=== PATIENT | female | born 1935 | race Caucasian/White ===

== ENCOUNTER 2020-07-27 20:10 | Outpatient (CLI) | payer MEDICARE, OTHER | END 2020-07-27 20:11 | disposition home or self-care (01) | LOC: COV 20:10 | PROVIDERS: ATTEND Family Medicine | DX: Z20.828 Contact with and (suspected) exposure to other viral communicable diseases (principal) ==

== ENCOUNTER 2020-11-10 13:15 | Outpatient (CLI) | payer MEDICARE, OTHER | END 2020-11-10 13:16 | disposition home or self-care (01) | LOC: COV 13:15 | PROVIDERS: ATTEND Family Medicine | DX: R53.83 Other fatigue (principal); R19.7 Diarrhea, unspecified; R09.81 Nasal congestion; Z20.822 Contact with and (suspected) exposure to COVID-19 ==

== ENCOUNTER 2021-04-29 15:46 | Outpatient (CLI) | payer MEDICARE, OTHER | END 2021-04-29 15:47 | disposition critical access hospital (66) | LOC: EMS 15:46 | DX: R10.84 Generalized abdominal pain (principal); R11.2 Nausea with vomiting, unspecified | CPT/HCPCS: A0425; A0427 ==

== ENCOUNTER 2021-04-29 16:04 | Inpatient (IN) | payer MEDICARE, OTHER ==
[2021-04-29] MEDS ORDERED: ONDANSETRON 4 MG/2 ML VIAL IVP STA (16:21)
[2021-04-29] MEDS ORDERED: SODIUM CHLORIDE 0.9% 1,000 ML IV STA (16:21)
[2021-04-29] MEDS ORDERED: KETOROLAC 30 MG/ML VIAL IVP STA (16:21)
[2021-04-29 16:29] LABS: BASOPHILS # (AUTO) 0.1 10^3/uL (0.0-0.1); BASOPHILS % (AUTO) 0.4 %; EOSINOPHILS % (AUTO) 0.2 %; HCT - HEMATOCRIT 51.3 % (37.0-47.0); HGB - HEMOGLOBIN 17.1 g/dL (12.0-16.0); LYMPHOCYTES # (AUTO) 0.8 10^3/uL (1.5-3.5); LYMPHOCYTES % (AUTO) 6.5 %; MEAN CORPUSCULAR HEMOGLOBIN 31.3 pg (27.0-31.0); MEAN CORPUSCULAR HGB CONC 33.3 g/dL (32.0-36.0); MEAN CORPUSCULAR VOLUME 93.8 fL (81.0-99.0); MEAN PLATELET VOLUME 10.2 fL (7.9-10.8); MONOCYTES # (AUTO) 0.6 10^3/uL (0.0-1.0); MONOCYTES % (AUTO) 4.9 %; NEUTROPHILS # (AUTO) 10.8 10^3/uL (1.5-6.6); NEUTROPHILS % (AUTO) 87.8 %; PLT - PLATELET COUNT 217 10^3/uL (130-450); RED BLOOD COUNT 5.47 10^6/uL (4.20-5.40); RED CELL DISTRIBUTION WIDTH 12.9 % (12.0-15.0); WHITE BLOOD COUNT 12.3 x10^3/uL (4.8-10.8)
[2021-04-29] MEDS ORDERED: IOPAMIDOL-300 100 ML VIAL ONE (16:30)
[2021-04-29 16:51] LABS: ALBUMIN 5.2 g/dL (3.2-5.5); ALBUMIN/GLOBULIN RATIO 1.7 (1.0-2.2); BILIRUBIN,TOTAL 1.5 mg/dL (0.2-1.0); CALCIUM 10.6 mg/dL (8.5-10.3); CREATININE 1.2 mg/dL (0.4-1.0); POTASSIUM 4.1 mmol/L (3.5-5.0); TOTAL PROTEIN 8.3 g/dL (6.7-8.2)
[2021-04-29] MEDS ORDERED: HYDROmorphone 1 MG/ML CARPUJECT IVP STA (17:10)
--- NOTE | 2021-04-29 17:47 | ED Physician Documentation ---
PD HPI ABD PAIN - Stated complaint Stated Complaint: N/V - Chief complaint Chief Complaint: Abd Pain - History obtained from History obtained from: Patient, Family - History of Present Illness Timing - onset: Today Timing - duration: Hours Timing - details: Gradual onset, Still present Quality: Cramping, Sharp, Pain Location: Periumbilical Radiation: Lower back Improved by: Laying still Worsened by: Moving, Breathing, Position, Palpation Associated symptoms: Nausea, Vomiting Similar symptoms before: Diagnosis (bowel obstruction.) Recently seen: Not recently seen - Additional information Additional information: 85-year-old female with a history of prior bowel obstruction in the has had a surgical procedure with the initial obstruction and following that she has had 3 other bowel obstructions which were medically managed. This would be her fifth episode. She has had her care in [place] prior to this. She has been living on [facility] for the past year without incident. Review of Systems Constitutional: denies: Fever Eyes: denies: Decreased vision Nose: denies: Congestion Throat: denies: Sore throat Cardiac: denies: Chest pain / pressure, Palpitations Respiratory: denies: Dyspnea, Cough GI: reports: Abdominal Pain, Nausea, Vomiting : denies: Dysuria, Frequency Skin: denies: Rash Musculoskeletal: denies: Neck pain, Back pain, Extremity pain Neurologic: denies: Generalized weakness, Focal weakness, Numbness PD PAST MEDICAL HISTORY - Allergies Allergies/Adverse Reactions: Allergies Allergy/AdvReac Type Severity Reaction Status Date / Time Sulfa (Sulfonamide Allergy Nausea Verified 04/29/21 16:18 Antibiotics) PD ED PE NORMAL - Vitals Vital signs reviewed: Yes (Hypertensive) - General General: Alert and oriented X 3, No acute distress, Well developed/nourished - HEENT HEENT: Atraumatic, PERRL, EOMI - Neck Neck: Supple, no meningeal sign, No bony TTP - Cardiac Cardiac: RRR, No murmur - Respiratory Respiratory: No respiratory distress, Clear bilaterally - Abdomen Abdomen: Other (The abdomen is distended and tympanetic to percussion. 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, No motor deficit, No sensory deficit, Normal speech Eye Opening: Spontaneous Motor: Obeys Commands Verbal: Confused GCS Score: 14 - Psych Psych: Normal mood Results - Vitals Vitals: Vital Signs - 24 hr 04/29/21 16:15 Temperature 35.9 C L Heart Rate 88 Respiratory 16 Rate Blood Pressure 145/91 H O2 Saturation 97 Oxygen O2 Source Room air - Labs Labs: Laboratory Tests 04/29/21 04/29/21 04/29/21 16:23 16:23 17:11 WBC 12.3 H RBC 5.47 H Hgb 17.1 H Hct 51.3 H MCV 93.8 MCH 31.3 H MCHC 33.3 RDW 12.9 Plt Count 217 MPV 10.2 Neut # (Auto) 10.8 H Lymph # (Auto) 0.8 L [place] # (Auto) 0.6 Eos # (Auto) 0.0 Baso # (Auto) 0.1 Absolute Nucleated RBC 0.00 Nucleated RBC % 0.0 Sodium 139 Potassium 4.1 Chloride 97 L Carbon Dioxide 24 Anion Gap 18.0 H BUN 22 H Creatinine 1.2 H Estimated GFR (MDRD) 43 L Glucose 176 H Calcium 10.6 H Total Bilirubin 1.5 H AST 29 ALT 20 Alkaline Phosphatase 74 Total Protein 8.3 H Albumin 5.2 Globulin 3.1 Albumin/Globulin Ratio 1.7 Lipase 29 Nasal Adenovirus (PCR) NOT DETECTED Nasal B. parapertussis DNA (PCR) NOT DETECTED Nasal Coronavir 229E PCR NOT DETECTED Nasal Coronavir HKU1 PCR NOT DETECTED Nasal Coronavir NL63 PCR NOT DETECTED Nasal Coronavir OC43 PCR NOT DETECTED Nasal Enterovir/Rhinovir PCR NOT DETECTED Nasal Influenza B PCR NOT DETECTED Nasal Influenza A PCR NOT DETECTED Nasal Parainfluen 1 PCR NOT DETECTED Nasal Parainfluen 2 PCR NOT DETECTED Nasal Parainfluen 3 PCR NOT DETECTED Nasal Parainfluen 4 PCR NOT DETECTED Nasal RSV (PCR) NOT DETECTED Nasal B.pertussis DNA PCR NOT DETECTED Nasal C.pneumoniae (PCR) NOT DETECTED Mason Human Metapneumo PCR NOT DETECTED Nasal M.pneumoniae (PCR) NOT DETECTED Nasal SARS-CoV-2 (PCR) NOT DETECTED - Rads (name of study) CT ab/pel Radiology: Prelim report reviewed (Impression: 1. Small bowel obstruction. Normal appendix. Thickening of the stomach and small bowel loops, consistent with ischemia versus infection versus inflammation.), EMP read indepedently, See rad report PD MEDICAL DECISION MAKING - ED course Complexity details: reviewed results, re-evaluated patient, considered differential, d/w patient, d/w family ED course: 85-year-old female new to our emergency department has a prior history of bowel obstruction managed conservatively over the past 30 years with the exception of the first bout which was surgically managed. Today she has bowel obstruction again. She has pain and distention acutely and she has little improvement with toradal and has good relief with diluadid. Her stomach is full and an NG is requested. Dr. Meyer is consulted in the case and requests NG be placed and he requests admission to medicine with consultation. She has hx/o afib on [facility]. Departure - Departure Disposition: 66 [facility] DC/[facility] Clinical Impression: Small bowel obstruction
[2021-04-29] MEDS ORDERED: IOPAMIDOL-300 100 ML VIAL IVP ONE (17:58)
--- NOTE | 2021-04-29 18:22 | CT Report ---
PROCEDURE: Abdomen/Pelvis W INDICATIONS: bowel obstruction CONTRAST: IV CONTRAST: Isovue 300 ml: 100 PO CONTRAST: *NO PO CONTRAST TECHNIQUE: After the administration of IV contrast, 5 mm thick sections acquired from the diaphragms to the symp hysis. 5 mm thick coronal and sagittal reformats were acquired. For radiation dose reduction, the f ollowing was used: automated exposure control, adjustment of mA and/or kV according to patient size. COMPARISON: None. FINDINGS: Image quality: Excellent. ABDOMEN: Lung bases: Lung bases are clear. Heart size is enlarged. Solid organs: Liver and spleen are normal in size and enhancement. Gallbladder is within normal ha its Biliary system is non dilated. Pancreas enhances normally. No adrenal nodules. Kidneys demons trate normal size and enhancement, without hydronephrosis. Peritoneum and bowel: A small hiatal hernia is present. Mild distention of the distal esophagus. Mild diffuse gastric distention. Mild diffuse gastric wall thickening. There is moderate distention and m ild of multiple small bowel loops within the abdomen and pelvis. There is a transition zone between d ilated and nondilated small bowel within the right anterior hemipelvis (series 6 images 15 and 16). D istal small bowel loops are nondistended. Appendix is normal. Colon is nondistended. No free fluid or air. Nodes and vessels: No retroperitoneal or mesenteric adenopathy by size criteria. Aorta and inferior vena cava are normal in size. Miscellaneous: No ventral hernias. PELVIS: Genitourinary: Bladder wall thickness is normal. Miscellaneous: No inguinal hernias or adenopathy. Bones: No suspicious bony lesions. No vertebral body compression fractures. IMPRESSION: 1. Small bowel obstruction. 2. Normal appendix. 3. Thickening of the stomach and small bowel loops, consistent with ischemia versus infection versus inflammation. Reviewed by: Catalino Sanchez MD on 04/29/2021 6:21 PM PDT Approved by: Catalino Sanchez MD on 04/29/2021 6:21 PM PDT Station ID: [id number]
[2021-04-29 18:32] LABS: B. PARAPERTUSSIS- RESP PCR PAN NOT DETECTED; B. PERTUSSIS- RESP PCR PANEL NOT DETECTED; C. PNEUMONIAE- RESP PCR PANEL NOT DETECTED; CORONAVIRUS 229E-RESP PCR NOT DETECTED; CORONAVIRUS HKU1-RESP PCR NOT DETECTED; CORONAVIRUS NL63-RESP PCR NOT DETECTED; CORONAVIRUS OC43-RESP PCR NOT DETECTED; HUMAN METAPNEUMOVIRUS NOT DETECTED; INFLUENZA A- RESP PCR PANEL NOT DETECTED; INFLUENZA B - RESP PCR PANEL NOT DETECTED; M. PNEUMONIAE- RESP PCR PANEL NOT DETECTED; PARAINFLUENZA VIRUS 1 NOT DETECTED; PARAINFLUENZA VIRUS 2 NOT DETECTED; PARAINFLUENZA VIRUS 3 NOT DETECTED; PARAINFLUENZA VIRUS 4 NOT DETECTED; RHINOVIRUS/ENTEROVIRUS NOT DETECTED; RSV- RESP PCR PANEL NOT DETECTED; SARS-CoV-2 -RESP PCR PANEL NOT DETECTED
--- NOTE | 2021-04-29 19:13 | CONSULTATION NOTE ---
Referring Provider Name of Referring Provider:: Mehul Consult Date: 04/29/21 Chief Complaint - Chief Complaint Chief Complaint: abdominal distention History of Present Illness - History Obtained From History obtained from: Patient's daughter, Dr Carver - History of Present Illness HPI Comment/Other: 85 yo female with Alzheimer's disease, hx of SBO in past with one previous abdominal exploration. Meds/Allgy - Allergies Allergies/Adverse Reactions: Allergies Allergy/AdvReac Type Severity Reaction Status Date / Time Sulfa (Sulfonamide Allergy Nausea Verified 04/29/21 16:18 Antibiotics) Exam - Vital Signs Vital Signs: Vital Signs x48h Temp Pulse Resp BP Pulse Ox 04/29/21 16:15 35.9 C L 88 16 145/91 H 97 - Physical Exam General Appearance: positive: No acute distress Eyes Bilateral: positive: Normal inspection ENT: positive: ENT inspection nml Neck: positive: Nml inspection Respiratory: positive: No respiratory distress Cardiovascular: positive: Irregularly irregular Abdomen: positive: Other (Distended but nontender, no guarding or rebound. Midline surgical scar.) Conclusion and Plan - Lab Results Laboratory Results 04/29/21 17:11: Nasal Adenovirus (PCR) NOT DETECTED, Nasal B. parapertussis DNA (PCR) NOT DETECTED, Nasal Coronavir 229E PCR NOT DETECTED, Nasal Coronavir HKU1 PCR NOT DETECTED, Nasal Coronavir NL63 PCR NOT DETECTED, Nasal Coronavir OC43 PCR NOT DETECTED, Nasal Enterovir/Rhinovir PCR NOT DETECTED, Nasal Influenza B PCR NOT DETECTED, Nasal Influenza A PCR NOT DETECTED, Nasal Parainfluen 1 PCR NOT DETECTED, Nasal Parainfluen 2 PCR NOT DETECTED, Nasal Parainfluen 3 PCR NOT DETECTED, Nasal Parainfluen 4 PCR NOT DETECTED, Nasal RSV (PCR) NOT DETECTED, Nasal B.pertussis DNA PCR NOT DETECTED, Nasal C.pneumoniae (PCR) NOT DETECTED, Mason Human Metapneumo PCR NOT DETECTED, Nasal M.pneumoniae (PCR) NOT DETECTED, Nasal SARS-CoV-2 (PCR) NOT DETECTED 04/29/21 16:23: Sodium 139, Potassium 4.1, Chloride 97 L, Carbon Dioxide 24, Anion Gap 18.0 H, BUN 22 H, Creatinine 1.2 H, Estimated GFR (MDRD) 43 L, Glucose 176 H, Calcium 10.6 H, Total Bilirubin 1.5 H, AST 29, ALT 20, Alkaline Phosphatase 74, Total Protein 8.3 H, Albumin 5.2, Globulin 3.1, Albumin/Globulin Ratio 1.7, Lipase 29 04/29/21 16:23: WBC 12.3 H, RBC 5.47 H, Hgb 17.1 H, Hct 51.3 H, MCV 93.8, MCH 31.3 H, MCHC 33.3, RDW 12.9, Plt Count 217, MPV 10.2, Neut # (Auto) 10.8 H, Lymph # (Auto) 0.8 L, [place] # (Auto) 0.6, Eos # (Auto) 0.0, Baso # (Auto) 0.1, Absolute Nucleated RBC 0.00, Nucleated RBC % 0.0 - Diagnostic Imaging Results Diagnostic Imaging Results: positive: Final report reviewed Diagnostic Imaging Results Comments: Consistent with small bowel obstruction - Diagnosis Diagnosis: Small bowel obstruction, s/p previous surgery for obstruction and several episodes of partial SBO managed successfully nonoperatively. Alzheimer's disease. A fib on Eliquis. Anxiety, depression - Plan Plan: NG to suction, NPO, IV fluids, abdominal films in AM. GG SBFT tomorrow if not resolved. Hold Eliquis.
[2021-04-29] MEDS ORDERED: LIDOCAINE JELLY 2% 6 ML JEL.PF.APP TOP STA (19:26)
[2021-04-29 20:41] LABS: INR 1.3 (0.8-1.2); PT - PROTHROMBIN TIME 14.5 secs (9.9-12.6)
[2021-04-29] MEDS: PROCHLORPERAZINE 10 MG/2 ML VIAL IVP PRN (21:18)
[2021-04-29] MEDS: SODIUM CHLORIDE 0.9% 1,000 ML IV SCH (21:18)
[2021-04-29] MEDS ORDERED: ENOXAPARIN 60 MG/0.6 ML SYRINGE SUBQ ONE (22:00)
--- NOTE | 2021-04-29 22:10 | HISTORY & PHYSICAL EXAMINATION ---
History and Physical - History and Physical Chief complaint: Nausea, vomiting and abdominal pain. Source of history: Patient has dementia and cannot provide meaningful history, her daughter at the bedside was interviewed and provided history. History of present illness: The patient is an 85-year-old white female with past medical history of Alzheimer's dementia and atrial fibrillation. She resides at [facility] assisted living [facility]. She has history of small bowel obstructions, 4 episodes in the past, first time she required surgery, subsequently, the other 3 times, she was treated conservatively. Other than abdominal surgery for small bowel obstruction, she does not have past surgical history except for remote skin grafts. She was in her usual state of health, ate breakfast as usual on the morning of April 29. Around noon time, however she developed several episodes of nausea, vomiting and lower quadrant diffuse abdominal discomfort. Other than this she could not provide history, notably she has advanced dementia and even basic symptoms are hard for her to remember, most of the history provided by her daughter. Daughter also reports that the patient has advancing dementia and sometimes gets agitated, however Seroquel helped in the past. Atrial fibrillation is controlled on digoxin and patient is therapeutically anticoagulated on Eliquis. Past medical history: History of small bowel obstructions requiring surgery for the first time, subsequently 3 more episodes treated conservatively Alzheimer's dementia Anxiety/depression Nonrheumatic mitral regurgitation/mitral valve prolapse Osteoporosis Chronic kidney disease stage III Atrial fibrillation on therapeutic Eliquis anticoagulation Allergies Sulfa (Sulfonamide Antibiotics) Allergy (Verified 04/29/21 16:18) Nausea Outpatient medications: Medication reconciliation is not available online, per assisted living facility documentation patient was on digoxin, Eliquis, loratadine, quetiapine, vitamin D, Tylenol Family history: Patient cannot recall chronic medical conditions in first-degree relatives. Social history and functional status: Patient lives at an assisted living facility, she ambulates with a walker. She sometimes gets agitated but responds well to Seroquel. She has advancing dementia. She is not on any modified diet. Requires assistance, however could still perform basic ADLs such as dressing and feeding. Advanced directive/CODE STATUS: CODE STATUS was discussed with the patient's daughter at the bedside; POLST form was reviewed which showed full CODE STATUS. Patient has advanced dementia and she is unable to discuss complex issues. Her daughter stated that for now her CODE STATUS should remain full code, however she mentioned that the decision might be changed. Review of symptoms: 12 point review done, pertinent positives and negatives listed above at history present illness, there was no additional positive. Vital Signs - 24 hr 04/29/21 04/29/21 04/29/21 16:15 20:31 20:40 Temperature 35.9 C L 36.1 C L 36.8 C Heart Rate 88 90 Heart Rate [ 14 L Radial] Respiratory 16 16 19 Rate Blood Pressure 145/91 H 135/69 H Blood Pressure 126/79 [Right Brachial artery] O2 Saturation 97 100 96 Oxygen O2 Source Room air Physical exam: General: The patient is a well-developed elderly female, appears forgetful but oriented to self and situation. Not in distress. Respiratory: No increased work of breathing, clear to auscultation bilaterally without wheezes or crackles. CVS: S1, S2, irregular without pathologic murmur. Abdomen: NG tube in place, draining thick yellowish fluid about 300 mL output; distended abdomen, diffusely tender in the lower quadrants, hypoactive bowel tones. Neurologic: Alert, appears forgetful, cannot provide meaningful history and looks at her daughter for even simple straightforward answers; no focal lateralizing sign. Psych: Cooperative. Lymph: No pitting pedal edema. Skin: Mild pallor. Musculoskeltal: Atraumatic. Laboratory Results - last 24 hr 04/29/21 04/29/21 04/29/21 16:23 16:23 17:11 WBC 12.3 H RBC 5.47 H Hgb 17.1 H Hct 51.3 H MCV 93.8 MCH 31.3 H MCHC 33.3 RDW 12.9 Plt Count 217 MPV 10.2 Neut # (Auto) 10.8 H Lymph # (Auto) 0.8 L [place] # (Auto) 0.6 Eos # (Auto) 0.0 Baso # (Auto) 0.1 Absolute Nucleated RBC 0.00 Nucleated RBC % 0.0 PT INR Sodium 139 Potassium 4.1 Chloride 97 L Carbon Dioxide 24 Anion Gap 18.0 H BUN 22 H Creatinine 1.2 H Estimated GFR (MDRD) 43 L Glucose 176 H Lactic Acid Calcium 10.6 H Total Bilirubin 1.5 H AST 29 ALT 20 Alkaline Phosphatase 74 Total Protein 8.3 H Albumin 5.2 Globulin 3.1 Albumin/Globulin Ratio 1.7 Lipase 29 Nasal Adenovirus (PCR) NOT DETECTED Nasal B. parapertussis DNA (PCR) NOT DETECTED Nasal Coronavir 229E PCR NOT DETECTED Nasal Coronavir HKU1 PCR NOT DETECTED Nasal Coronavir NL63 PCR NOT DETECTED Nasal Coronavir OC43 PCR NOT DETECTED Nasal Enterovir/Rhinovir PCR NOT DETECTED Nasal Influenza B PCR NOT DETECTED Nasal Influenza A PCR NOT DETECTED Nasal Parainfluen 1 PCR NOT DETECTED Nasal Parainfluen 2 PCR NOT DETECTED Nasal Parainfluen 3 PCR NOT DETECTED Nasal Parainfluen 4 PCR NOT DETECTED Nasal RSV (PCR) NOT DETECTED Nasal B.pertussis DNA PCR NOT DETECTED Nasal C.pneumoniae (PCR) NOT DETECTED Mason Human Metapneumo PCR NOT DETECTED Nasal M.pneumoniae (PCR) NOT DETECTED Nasal SARS-CoV-2 (PCR) NOT DETECTED 04/29/21 04/29/21 20:30 20:30 WBC RBC Hgb Hct MCV MCH MCHC RDW Plt Count MPV Neut # (Auto) Lymph # (Auto) [place] # (Auto) Eos # (Auto) Baso # (Auto) Absolute Nucleated RBC Nucleated RBC % PT 14.5 H INR 1.3 H Sodium Potassium Chloride Carbon Dioxide Anion Gap BUN Creatinine Estimated GFR (MDRD) Glucose Lactic Acid 1.5 Calcium Total Bilirubin AST ALT Alkaline Phosphatase Total Protein Albumin Globulin Albumin/Globulin Ratio Lipase Nasal Adenovirus (PCR) Nasal B. parapertussis DNA (PCR) Nasal Coronavir 229E PCR Nasal Coronavir HKU1 PCR Nasal Coronavir NL63 PCR Nasal Coronavir OC43 PCR Nasal Enterovir/Rhinovir PCR Nasal Influenza B PCR Nasal Influenza A PCR Nasal Parainfluen 1 PCR Nasal Parainfluen 2 PCR Nasal Parainfluen 3 PCR Nasal Parainfluen 4 PCR Nasal RSV (PCR) Nasal B.pertussis DNA PCR Nasal C.pneumoniae (PCR) Mason Human Metapneumo PCR Nasal M.pneumoniae (PCR) Nasal SARS-CoV-2 (PCR) Imaging reviewed per electronic medical record including CT scan of the abdomen; it showed small bowel obstruction, thickening of stomach and small bowel loops consistent with ischemia versus inflammation versus infection. Assessment and plan: Active issues/diagnoses Small bowel obstruction Stomach and bowel loop thickening shown on CT scan is consistent with inflammation, based on the clinical scenario less likely infection or ischemia Chronic A. fib Therapeutic anticoagulation Alzheimer dementia with history of agitation and sundowning Chronic renal insufficiency/creatinine at baseline Plan and orders: Admitted as inpatient with surgery consultation, was already seen by the on-call surgeon Bowel rest/NG tube Check lactic acid IV hydration Proton Pump Inhibitor IV digoxin to control chronic A. fib/check digoxin level As the patient cannot take oral intake will receive 1 loading dose of Lovenox to maintain therapeutic anticoagulation until the morning, further orders will be based on surgical plan and clinical course Regarding agitation and history of sundowning with Alzheimer's disease, will order as needed Ativan and try to use nonpharmacological measures/dementia awarness Medication reconciliation DVT prophylaxis with SCDs, plus therapeutic anticoagulation is maintained with 1 dose of Lovenox until further order Full code per POLST form Attestation: I certify that the patient meets inpatient criteria based on the admission diagnosis, and the above assessment findings and plan; she is expected to be hospitalized for more than 48 hours however to discharge or transfer to other facility within less than 96 hours.
[2021-04-29] MEDS: SODIUM CHLORIDE FLUSH 0.9% 10 ML SYRINGE IVP SCH (23:32)
[2021-04-30] MEDS ORDERED: METOPROLOL 5 MG/5 ML VIAL IVP SCH
[2021-04-30] MEDS ORDERED: PHENOL THROAT SPRAY 177 ML MM PRN (02:01)
[2021-04-30] MEDS: SODIUM CHLORIDE 0.9% 1,000 ML IV SCH ×3 (02:41→20:38)
[2021-04-30] MEDS: BENZOCAINE/MENTHOL LOZENGE MM PRN ×2 (02:44→14:21)
[2021-04-30] MEDS ORDERED: METOPROLOL 5 MG/5 ML VIAL IVP PRN (04:25)
[2021-04-30 05:42] LABS: BASOPHILS % (AUTO) 0.7 %; EOSINOPHILS % (AUTO) 0.7 %; HCT - HEMATOCRIT 48.2 % (37.0-47.0); HGB - HEMOGLOBIN 15.5 g/dL (12.0-16.0); LYMPHOCYTES % (AUTO) 4.6 %; MEAN CORPUSCULAR HEMOGLOBIN 30.9 pg (27.0-31.0); MEAN CORPUSCULAR HGB CONC 32.2 g/dL (32.0-36.0); MEAN PLATELET VOLUME 10.7 fL (7.9-10.8); MONOCYTES % (AUTO) 9.4 %; NEUTROPHILS % (AUTO) 84.3 %; PLT - PLATELET COUNT 201 10^3/uL (130-450); RED BLOOD COUNT 5.02 10^6/uL (4.20-5.40); RED CELL DISTRIBUTION WIDTH 13.2 % (12.0-15.0); WHITE BLOOD COUNT 7.2 x10^3/uL (4.8-10.8)
[2021-04-30 05:49] LABS: CALCIUM 8.8 mg/dL (8.5-10.3); CREATININE 1.1 mg/dL (0.4-1.0); POTASSIUM 4.2 mmol/L (3.5-5.0)
[2021-04-30 06:00] LABS: ABNORMAL LYMPHS % (MANUAL) 0 %
[2021-04-30 06:13] LABS: BAND NEUTROPHILS % (MANUAL) 1 %; LYMPHOCYTES # (MANUAL) 0.6 10^3/uL (1.5-3.5); LYMPHOCYTES % (MANUAL) 8 %; MONOCYTES # (MANUAL) 0.7 10^3/uL (0.0-1.0); NEUTROPHILS # (MANUAL) 5.9 10^3/uL (1.5-6.6)
[2021-04-30 06:14] LABS: DIFFERENTIAL COMMENT MANUAL DIFFERENTIAL; PLATELET ESTIMATE, MANUAL NORMAL (130-450,000) (NORMAL); PLATELET MORPHOLOGY NORMAL APPEARANCE (NORMAL); RBC MORPHOLOGY (MULTIPLE) NORMAL APPEARANCE (NORMAL); WBC MORPHOLOGY (MULTIPLE) NORMAL APPEARANCE (NORMAL)
[2021-04-30] MEDS: PANTOPRAZOLE 40 MG VIAL IV SCH (09:06)
[2021-04-30] MEDS: SODIUM CHLORIDE FLUSH 0.9% 10 ML SYRINGE IVP SCH ×2 (09:06→16:28)
[2021-04-30] MEDS: DIGOXIN 500 MCG/2 ML AMP IVP SCH (09:06)
--- NOTE | 2021-04-30 09:38 | PROVIDER PROGRESS NOTE ---
Subjective - General Admit Date: 04/29/21 - Review of Systems General: positive: Other (NG in place with good output) Gastrointestinal: negative: Nausea, Vomiting, Abdominal pain Objective - Patient Data Reviewed Vital Signs: Yes Vital Signs: Vital Signs x48h Temp Pulse Pulse Resp BP Pulse Ox 04/30/21 08:52 36.6 C 96 16 111/63 97 04/30/21 04:51 36.5 C 100 17 114/55 L 95 Weight: Weight 04/28/21 04/29/21 04/30/21 23:59 23:59 23:59 Weight (kg) 65 kg Intake & Output: Intake and Output Totals x24h 04/28/21 04/29/21 04/30/21 23:59 23:59 23:59 Intake Total 1030 488.609 Output Total 300 225 Balance 730 263.609 - Lab Results Lab Results: 04/30/21 05:30 04/30/21 05:30 Other Lab Results: Lab Results x24hrs 04/30/21 04/30/21 04/29/21 Range/Units 05:30 05:30 20:30 WBC 7.2 (4.8-10.8) x10^3/uL RBC 5.02 (4.20-5.40) 10^6/uL Hgb 15.5 (12.0-16.0) g/dL Hct 48.2 H (37.0-47.0) % MCV 96.0 (81.0-99.0) fL MCH 30.9 (27.0-31.0) pg MCHC 32.2 (32.0-36.0) g/dL RDW 13.2 (12.0-15.0) % Plt Count 201 (130-450) 10^3/uL MPV 10.7 (7.9-10.8) fL Neut # (Auto) Not Reportable (1.5-6.6) 10^3/uL Lymph # (Auto) Not Reportable (1.5-3.5) 10^3/uL [place] # (Auto) Not Reportable (0.0-1.0) 10^3/uL Eos # (Auto) Not Reportable (0.0-0.7) 10^3/uL Baso # (Auto) Not Reportable (0.0-0.1) 10^3/uL Absolute Nucleated RBC Not Reportable x10^3/uL Total Counted 100 Band Neuts % (Manual) 1 (0 - 10) % Abnorm Lymph % (Manual) 0 % Nucleated RBC % Not Reportable /100WBC Neutrophils # (Manual) 5.9 (1.5-6.6) 10^3/uL Lymphocytes # (Manual) 0.6 L (1.5-3.5) 10^3/uL Monocytes # (Manual) 0.7 (0.0-1.0) 10^3/uL Eosinophils # (Manual) 0.0 (0-0.7) 10^3/uL Basophils # (Manual) 0.0 (0-0.1) 10^3/uL Differential Comment MANUAL DIFFERENTIAL WBC Morphology NORMAL APPEARANCE (NORMAL) Platelet Estimate NORMAL (130-450,000) (NORMAL) Platelet Morphology NORMAL APPEARANCE (NORMAL) RBC Morph Micro Appear NORMAL APPEARANCE (NORMAL) PT 14.5 H (9.9-12.6) secs INR 1.3 H (0.8-1.2) Sodium 138 (135-145) mmol/L Potassium 4.2 (3.5-5.0) mmol/L Chloride 100 L (101-111) mmol/L Carbon Dioxide 25 (21-32) mmol/L Anion Gap 13.0 (6-13) BUN 28 H (6-20) mg/dL Creatinine 1.1 H (0.4-1.0) mg/dL Estimated GFR (MDRD) 47 L (>89) Glucose 158 H (70-100) mg/dL Lactic Acid (0.5-2.2) mmol/L Calcium 8.8 (8.5-10.3) mg/dL Total Bilirubin (0.2-1.0) mg/dL AST (10-42) IU/L ALT (10-60) IU/L Alkaline Phosphatase (42-121) IU/L Total Protein (6.7-8.2) g/dL Albumin (3.2-5.5) g/dL Globulin (2.1-4.2) g/dL Albumin/Globulin Ratio (1.0-2.2) Lipase (22-51) U/L Nasal Adenovirus (PCR) Nasal B. parapertussis DNA (PCR) Nasal Coronavir 229E PCR Nasal Coronavir HKU1 PCR Nasal Coronavir NL63 PCR Nasal Coronavir OC43 PCR Nasal Enterovir/Rhinovir PCR Nasal Influenza B PCR Nasal Influenza A PCR Nasal Parainfluen 1 PCR Nasal Parainfluen 2 PCR Nasal Parainfluen 3 PCR Nasal Parainfluen 4 PCR Nasal RSV (PCR) Nasal B.pertussis DNA PCR Nasal C.pneumoniae (PCR) [place] Human Metapneumo PCR Nasal M.pneumoniae (PCR) Nasal SARS-CoV-2 (PCR) 04/29/21 04/29/21 04/29/21 Range/Units 20:30 17:11 16:23 WBC (4.8-10.8) x10^3/uL RBC (4.20-5.40) 10^6/uL Hgb (12.0-16.0) g/dL Hct (37.0-47.0) % MCV (81.0-99.0) fL MCH (27.0-31.0) pg MCHC (32.0-36.0) g/dL RDW (12.0-15.0) % Plt Count (130-450) 10^3/uL MPV (7.9-10.8) fL Neut # (Auto) (1.5-6.6) 10^3/uL Lymph # (Auto) (1.5-3.5) 10^3/uL [place] # (Auto) (0.0-1.0) 10^3/uL Eos # (Auto) (0.0-0.7) 10^3/uL Baso # (Auto) (0.0-0.1) 10^3/uL Absolute Nucleated RBC x10^3/uL Total Counted Band Neuts % (Manual) (0 - 10) % Abnorm Lymph % (Manual) % Nucleated RBC % /100WBC Neutrophils # (Manual) (1.5-6.6) 10^3/uL Lymphocytes # (Manual) (1.5-3.5) 10^3/uL Monocytes # (Manual) (0.0-1.0) 10^3/uL Eosinophils # (Manual) (0-0.7) 10^3/uL Basophils # (Manual) (0-0.1) 10^3/uL Differential Comment WBC Morphology (NORMAL) Platelet Estimate (NORMAL) Platelet Morphology (NORMAL) RBC Morph Micro Appear (NORMAL) PT (9.9-12.6) secs INR (0.8-1.2) Sodium 139 (135-145) mmol/L Potassium 4.1 (3.5-5.0) mmol/L Chloride 97 L (101-111) mmol/L Carbon Dioxide 24 (21-32) mmol/L Anion Gap 18.0 H (6-13) BUN 22 H (6-20) mg/dL Creatinine 1.2 H (0.4-1.0) mg/dL Estimated GFR (MDRD) 43 L (>89) Glucose 176 H (70-100) mg/dL Lactic Acid 1.5 (0.5-2.2) mmol/L Calcium 10.6 H (8.5-10.3) mg/dL Total Bilirubin 1.5 H (0.2-1.0) mg/dL AST 29 (10-42) IU/L ALT 20 (10-60) IU/L Alkaline Phosphatase 74 (42-121) IU/L Total Protein 8.3 H (6.7-8.2) g/dL Albumin 5.2 (3.2-5.5) g/dL Globulin 3.1 (2.1-4.2) g/dL Albumin/Globulin Ratio 1.7 (1.0-2.2) Lipase 29 (22-51) U/L Nasal Adenovirus (PCR) NOT DETECTED Nasal B. parapertussis DNA (PCR) NOT DETECTED Nasal Coronavir 229E PCR NOT DETECTED Nasal Coronavir HKU1 PCR NOT DETECTED Nasal Coronavir NL63 PCR NOT DETECTED Nasal Coronavir OC43 PCR NOT DETECTED Nasal Enterovir/Rhinovir PCR NOT DETECTED Nasal Influenza B PCR NOT DETECTED Nasal Influenza A PCR NOT DETECTED Nasal Parainfluen 1 PCR NOT DETECTED Nasal Parainfluen 2 PCR NOT DETECTED Nasal Parainfluen 3 PCR NOT DETECTED Nasal Parainfluen 4 PCR NOT DETECTED Nasal RSV (PCR) NOT DETECTED Nasal B.pertussis DNA PCR NOT DETECTED Nasal C.pneumoniae (PCR) NOT DETECTED [place] Human Metapneumo PCR NOT DETECTED Nasal M.pneumoniae (PCR) NOT DETECTED Nasal SARS-CoV-2 (PCR) NOT DETECTED 04/29/21 Range/Units 16:23 WBC 12.3 H (4.8-10.8) x10^3/uL RBC 5.47 H (4.20-5.40) 10^6/uL Hgb 17.1 H (12.0-16.0) g/dL Hct 51.3 H (37.0-47.0) % MCV 93.8 (81.0-99.0) fL MCH 31.3 H (27.0-31.0) pg MCHC 33.3 (32.0-36.0) g/dL RDW 12.9 (12.0-15.0) % Plt Count 217 (130-450) 10^3/uL MPV 10.2 (7.9-10.8) fL Neut # (Auto) 10.8 H (1.5-6.6) 10^3/uL Lymph # (Auto) 0.8 L (1.5-3.5) 10^3/uL [place] # (Auto) 0.6 (0.0-1.0) 10^3/uL Eos # (Auto) 0.0 (0.0-0.7) 10^3/uL Baso # (Auto) 0.1 (0.0-0.1) 10^3/uL Absolute Nucleated RBC 0.00 x10^3/uL Total Counted Band Neuts % (Manual) (0 - 10) % Abnorm Lymph % (Manual) % Nucleated RBC % 0.0 /100WBC Neutrophils # (Manual) (1.5-6.6) 10^3/uL Lymphocytes # (Manual) (1.5-3.5) 10^3/uL Monocytes # (Manual) (0.0-1.0) 10^3/uL Eosinophils # (Manual) (0-0.7) 10^3/uL Basophils # (Manual) (0-0.1) 10^3/uL Differential Comment WBC Morphology (NORMAL) Platelet Estimate (NORMAL) Platelet Morphology (NORMAL) RBC Morph Micro Appear (NORMAL) PT (9.9-12.6) secs INR (0.8-1.2) Sodium (135-145) mmol/L Potassium (3.5-5.0) mmol/L Chloride (101-111) mmol/L Carbon Dioxide (21-32) mmol/L Anion Gap (6-13) BUN (6-20) mg/dL Creatinine (0.4-1.0) mg/dL Estimated GFR (MDRD) (>89) Glucose (70-100) mg/dL Lactic Acid (0.5-2.2) mmol/L Calcium (8.5-10.3) mg/dL Total Bilirubin (0.2-1.0) mg/dL AST (10-42) IU/L ALT (10-60) IU/L Alkaline Phosphatase (42-121) IU/L Total Protein (6.7-8.2) g/dL Albumin (3.2-5.5) g/dL Globulin (2.1-4.2) g/dL Albumin/Globulin Ratio (1.0-2.2) Lipase (22-51) U/L Nasal Adenovirus (PCR) Nasal B. parapertussis DNA (PCR) Nasal Coronavir 229E PCR Nasal Coronavir HKU1 PCR Nasal Coronavir NL63 PCR Nasal Coronavir OC43 PCR Nasal Enterovir/Rhinovir PCR Nasal Influenza B PCR Nasal Influenza A PCR Nasal Parainfluen 1 PCR Nasal Parainfluen 2 PCR Nasal Parainfluen 3 PCR Nasal Parainfluen 4 PCR Nasal RSV (PCR) Nasal B.pertussis DNA PCR Nasal C.pneumoniae (PCR) [place] Human Metapneumo PCR Nasal M.pneumoniae (PCR) Nasal SARS-CoV-2 (PCR) - Imaging Results Radiology Imaging: positive: Other (Plain abdominal films ordered and pending) - Current Medications Current Medications: Current Medications Generic Name Dose Route Start Last Admin Trade Name Freq PRN Reason Stop Dose Admin Digoxin 125 mcg 04/30/21 09:00 04/30/21 09:06 Digoxin 500 Mcg/2 Ml Amp IVP 125 mcg DAILY GIGI Administration Sodium Chloride 1,000 mls @ 83.333 mls/hr 04/29/21 21:00 04/30/21 02:41 Normal Saline 0.9% IV 83.333 mls/hr .Q12H GIGI Administration Pantoprazole Sodium 40 mg 04/30/21 09:00 04/30/21 09:06 Pantoprazole 40 Mg Vial IV 40 mg DAILY GIGI Administration Phenol/Menthol 2 sprays 04/30/21 02:01 04/30/21 02:46 Phenol Throat [place] 177 Ml MM 2 sprays Q2HR PRN Administration Throat Pain Prochlorperazine Edisylate 10 mg 04/29/21 20:08 04/29/21 21:18 Prochlorperazine 10 Mg/2 Ml Vial IVP 10 mg Q6HR PRN Administration Nausea / Vomiting Sodium Chloride 10 ml 04/30/21 01:00 04/30/21 09:06 Sodium Chloride Flush 0.9% 10 Ml Syringe IVP 10 ml 0100,0900,1700 GIGI Administration Throat Lozenges 1 lozenge 04/29/21 22:10 04/30/21 02:44 Benzocaine/Menthol Lozenge MM 1 lozenge Q2HR PRN Administration Mouth Sore Pain - Physical Exam Abdomen: positive: Non-tender, No distention (Much improved from yesterday) Impression/Plan - Problem List Problem List: SBO- improved after overnight NG suction Abdominal films this am pending Plan: Continue NG/IVF. SBFT
[2021-04-30] MEDS: PROCHLORPERAZINE 10 MG/2 ML VIAL IVP PRN (10:08)
[2021-04-30] MEDS ORDERED: ENOXAPARIN 60 MG/0.6 ML SYRINGE SUBQ ONE (10:39)
--- NOTE | 2021-04-30 12:26 | XRAY Report ---
PROCEDURE: Abdomen 2 View X-Ray INDICATIONS: evaluate SBO TECHNIQUE: 2 views of the abdomen were acquired. COMPARISON: CT abdomen pelvis 04/29/2021. FINDINGS: Surgical changes and devices: None. Bowel: No pneumoperitoneum. Persistent dilated loops of small bowel. Small air-fluid levels. Soft tissues: No masses; visualized solid organ contours appear normal in size. No suspicious abdom inal calcifications. Streaky opacity at the left lung base. Prominent heart size. Bones: No suspicious bony abnormalities. IMPRESSION: Persistent small bowel obstruction. Reviewed by: John Foley MD on 04/30/2021 11:25 AM [place] Approved by: John Foley MD on 04/30/2021 11:25 AM [facility] Station ID: [id number]
--- NOTE | 2021-04-30 13:36 | XRAY Report ---
PROCEDURE: Small Bowel Follow Through INDICATIONS: EVALUATE SBO COMPARISON: Abdominal radiographs earlier today. CT abdomen and pelvis 04/29/2020. CONTRAST: CONTRAST: GASTROGRAPHIN FINDINGS: There is enteric tube in the stomach. There is now contrast within the stomach. There is persistent d ilated loops of small bowel. These loops of small bowel filled with oral contrast on the 2 hour gastr ic challenge. Question of mild opacity at the left lung base. IMPRESSION: Persistent small bowel obstruction. Question of mild airspace opacity at the left lung base. Reviewed by: John Foley MD on 04/30/2021 12:34 PM [facility] Approved by: John Foley MD on 04/30/2021 12:34 PM [facility] Station ID: [id number]
[2021-04-30] MEDS: ONDANSETRON 4 MG/2 ML VIAL IVP PRN (14:21)
[2021-04-30] MEDS ORDERED: fentaNYL 100 MCG/2 ML VIAL ONE (17:02)
[2021-04-30] MEDS ORDERED: PROPOFOL 200 MG/20 ML VIAL IVP ONE (17:02)
[2021-04-30] MEDS ORDERED: ROCURONIUM 50 MG/5 ML VIAL ONE (17:02)
[2021-04-30] MEDS ORDERED: LIDOCAINE-MPF 2% 5 ML VIAL ONE (17:02)
[2021-04-30] MEDS ORDERED: PHENYLEPHRINE 10 MG/ML VIAL ONE (17:07)
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
[2021-04-30] MEDS ORDERED: ATROPINE ABBOJECT 1 MG/10 ML SYRINGE IVP PRN (17:17)
[2021-04-30] MEDS ORDERED: HYDROmorphone 0.5 MG/0.5 ML SYRINGE IVP PRN (17:17)
[2021-04-30] MEDS ORDERED: NALOXONE 0.4 MG/ML VIAL IVP PRN (17:17)
[2021-04-30] MEDS ORDERED: MORPHINE 2 MG/ML CARPUJECT IVP PRN (17:17)
[2021-04-30] MEDS ORDERED: ONDANSETRON 4 MG/2 ML VIAL IVP PRN (17:17)
[2021-04-30] MEDS ORDERED: fentaNYL 100 MCG/2 ML VIAL IVP PRN (17:17)
[2021-04-30] MEDS ORDERED: DIATRIZOATE MEGLU/DIATRIZO SOD 30 ML BOTTLE PO ONE (17:35)
[2021-04-30] MEDS ORDERED: ceFAZolin 1 GM VIAL ONE (17:42)
[2021-04-30] MEDS ORDERED: metroNIDAZOLE 500 MG/100 ML 500 MG/100 ML BAG ONE (17:49)
[2021-04-30] MEDS ORDERED: BUPIVACAINE 0.25% PF 30 ML VIAL SUBQ ONE ×2 (17:51)
[2021-04-30] MEDS ORDERED: BUPIVACAINE 0.25% PF 30 ML VIAL ONE (17:53)
[2021-04-30] MEDS ORDERED: LACTATED RINGERS 1,000 ML IV SCH (18:00)
--- NOTE | 2021-04-30 18:01 | PROVIDER PROGRESS NOTE ---
Assessment/Plan - Problem List (1) Small bowel obstruction Assessment/Plan: Continue with bowel rest, NG tube for decompression. General surgery consultation and Dr. Meyer has ordered a Gastrografin chall enge and x-ray imaging. She vomited a copious amount of stomach contents following ingestion of the Gastrografin. Dr. Meyer feels that she is not progressing and is planning to take her to the OR for probable lysis of adhesions today. Continue with IV fluids while she is n.p.o. Continue with pain meds and antiemetics as needed. We will change her essential medications to IV form (2) Atrial fibrillation Assessment/Plan: Her heart rate is controlled on her current medications. She was on proper doses of Eliquis and therapeutically anticoagulated. The Eliquis has been discontinued, changed to Lovenox which could then be stopped if she needs to go to surgery for the small bowel obstruction. Continue with heart rate meds in IV form (3) CKD (chronic kidney disease) Assessment/Plan: She is at her baseline creatinine. Avoid nephrotoxins. Continue with gentle IV hydration while she has n.p.o. status because of the SBO. Follow BMP daily (4) Dementia with behavioral disturbance Assessment/Plan: She has had agitation and sundowning in the past. Knowing this history, will begin treatment if she has agitation or sundowning - Current Meds Current Meds: Current Medications Generic Name Dose Route Start Last Admin Trade Name Freq PRN Reason Stop Dose Admin Digoxin 125 mcg 04/30/21 09:00 04/30/21 09:06 Digoxin 500 Mcg/2 Ml Amp IVP 125 mcg DAILY GIGI Administration Sodium Chloride 1,000 mls @ 83.333 mls/hr 04/29/21 21:00 04/30/21 14:44 Normal Saline 0.9% IV 83.3 mls/hr .Q12H GIGI Administration Ondansetron HCl 4 mg 04/29/21 20:08 04/30/21 14:21 Ondansetron 4 Mg/2 Ml Vial IVP 4 mg Q6HR PRN Administration Nausea / Vomiting Pantoprazole Sodium 40 mg 04/30/21 09:00 04/30/21 09:06 Pantoprazole 40 Mg Vial IV 40 mg DAILY GIGI Administration Phenol/Menthol 2 sprays 04/30/21 02:01 04/30/21 02:46 Phenol Throat [place] 177 Ml MM 2 sprays Q2HR PRN Administration Throat Pain Prochlorperazine Edisylate 10 mg 04/29/21 20:08 04/30/21 10:08 Prochlorperazine 10 Mg/2 Ml Vial IVP 10 mg Q6HR PRN Administration Nausea / Vomiting Sodium Chloride 10 ml 04/30/21 01:00 04/30/21 16:28 Sodium Chloride Flush 0.9% 10 Ml Syringe IVP Not Given 0100,0900,1700 GIGI Throat Lozenges 1 lozenge 04/29/21 22:10 04/30/21 14:21 Benzocaine/Menthol Lozenge MM 1 lozenge Q2HR PRN Administration Mouth Sore Pain - Lab Result Fish Bone Diagrams: 04/30/21 05:30 04/30/21 05:30 - Additional Planning My Orders: My Active Orders 04/30/21 21:00 Enoxaparin [Lovenox] 60 mg SUBQ BID Subjective - Subjective Patient Reports: Nausea Nursing Reports: Vomitting Objective Vital Signs: Vital Signs - 24 hr 04/29/21 04/29/21 04/29/21 20:31 20:40 23:03 Temperature 36.1 C L 36.8 C Heart Rate 90 Heart Rate [ Brachial] Heart Rate [ 104 H 68 Radial] Respiratory 16 19 18 Rate Blood Pressure 135/69 H Blood Pressure [Left Brachial] Blood Pressure 126/79 132/46 H [Right Brachial artery] O2 Saturation 100 96 93 04/29/21 04/29/21 04/30/21 23:31 23:39 04:51 Temperature 37.6 C 36.5 C Heart Rate Heart Rate [ Brachial] Heart Rate [ 100 Radial] Respiratory 17 Rate Blood Pressure 132/46 H Blood Pressure 114/55 L [Left Brachial] Blood Pressure [Right Brachial artery] O2 Saturation 95 04/30/21 04/30/21 08:52 15:35 Temperature 36.6 C 38.2 C H Heart Rate Heart Rate [ 96 94 Brachial] Heart Rate [ Radial] Respiratory 16 15 Rate Blood Pressure Blood Pressure 111/63 [Left Brachial] Blood Pressure 113/61 [Right Brachial artery] O2 Saturation 97 95 Oxygen O2 Source Room air I&O (Last 24 Hrs): Intake and Output Totals x24h 04/28/21 04/29/21 04/30/21 23:59 23:59 23:59 Intake Total 1030 1586.229 Output Total 300 1575 Balance 730 11.229 General: Moderate distress (Currently vomiting, despite ng tube decompressing her) HEENT: Mucous membr. moist/pink, Other (Appeares fatigued) Neck: Supple Neuro: Alert (Confused, oriented to self) Cardiovascular: Regular rate Respiratory: No respiratory distress Abdomen: Other (Distended, no bowel sounds) Extremities: No edema - Results Results: Laboratory Results WBC 7.2 x10^3/uL (4.8-10.8) 04/30/21 05:30 RBC 5.02 10^6/uL (4.20-5.40) 04/30/21 05:30 Hgb 15.5 g/dL (12.0-16.0) 04/30/21 05:30 Hct 48.2 % (37.0-47.0) H 04/30/21 05:30 MCV 96.0 fL (81.0-99.0) 04/30/21 05:30 MCH 30.9 pg (27.0-31.0) 04/30/21 05:30 MCHC 32.2 g/dL (32.0-36.0) 04/30/21 05:30 RDW 13.2 % (12.0-15.0) 04/30/21 05:30 Plt Count 201 10^3/uL (130-450) 04/30/21 05:30 MPV 10.7 fL (7.9-10.8) 04/30/21 05:30 Neut # (Auto) Not Reportable 04/30/21 05:30 Lymph # (Auto) Not Reportable 04/30/21 05:30 [place] # (Auto) Not Reportable 04/30/21 05:30 Eos # (Auto) Not Reportable 04/30/21 05:30 Baso # (Auto) Not Reportable 04/30/21 05:30 Absolute Nucleated RBC Not Reportable 04/30/21 05:30 Total Counted 100 04/30/21 05:30 Band Neuts % (Manual) 1 % (0-10) 04/30/21 05:30 Abnorm Lymph % (Manual) 0 % 04/30/21 05:30 Nucleated RBC % Not Reportable 04/30/21 05:30 Neutrophils # (Manual) 5.9 10^3/uL (1.5-6.6) 04/30/21 05:30 Lymphocytes # (Manual) 0.6 10^3/uL (1.5-3.5) L 04/30/21 05:30 Monocytes # (Manual) 0.7 10^3/uL (0.0-1.0) 04/30/21 05:30 Eosinophils # (Manual) 0.0 10^3/uL (0-0.7) 04/30/21 05:30 Basophils # (Manual) 0.0 10^3/uL (0-0.1) 04/30/21 05:30 Differential Comment MANUAL DIFFERENTIAL 04/30/21 05:30 WBC Morphology NORMAL APPEARANCE (NORMAL) 04/30/21 05:30 Platelet Estimate NORMAL (130-450,000) (NORMAL) 04/30/21 05:30 Platelet Morphology NORMAL APPEARANCE (NORMAL) 04/30/21 05:30 RBC Morph Micro Appear NORMAL APPEARANCE (NORMAL) 04/30/21 05:30 PT 14.5 secs (9.9-12.6) H 04/29/21 20:30 INR 1.3 (0.8-1.2) H 04/29/21 20:30 Sodium 138 mmol/L (135-145) 04/30/21 05:30 Potassium 4.2 mmol/L (3.5-5.0) 04/30/21 05:30 Chloride 100 mmol/L (101-111) L 04/30/21 05:30 Carbon Dioxide 25 mmol/L (21-32) 04/30/21 05:30 Anion Gap 13.0 (6-13) 04/30/21 05:30 BUN 28 mg/dL (6-20) H 04/30/21 05:30 Creatinine 1.1 mg/dL (0.4-1.0) H 04/30/21 05:30 Estimated GFR (MDRD) 47 (>89) L 04/30/21 05:30 Glucose 158 mg/dL (70-100) H 04/30/21 05:30 Lactic Acid 1.5 mmol/L (0.5-2.2) 04/29/21 20:30 Calcium 8.8 mg/dL (8.5-10.3) 04/30/21 05:30 Total Bilirubin 1.5 mg/dL (0.2-1.0) H 04/29/21 16:23 AST 29 IU/L (10-42) 04/29/21 16:23 ALT 20 IU/L (10-60) 04/29/21 16:23 Alkaline Phosphatase 74 IU/L (42-121) 04/29/21 16:23 Total Protein 8.3 g/dL (6.7-8.2) H 04/29/21 16:23 Albumin 5.2 g/dL (3.2-5.5) 04/29/21 16:23 Globulin 3.1 g/dL (2.1-4.2) 04/29/21 16:23 Albumin/Globulin Ratio 1.7 (1.0-2.2) 04/29/21 16:23 Lipase 29 U/L (22-51) 04/29/21 16:23 Nasal Adenovirus (PCR) NOT DETECTED 04/29/21 17:11 Nasal B. parapertussis DNA (PCR) NOT DETECTED 04/29/21 17:11 Nasal Coronavir 229E PCR NOT DETECTED 04/29/21 17:11 Nasal Coronavir HKU1 PCR NOT DETECTED 04/29/21 17:11 Nasal Coronavir NL63 PCR NOT DETECTED 04/29/21 17:11 Nasal Coronavir OC43 PCR NOT DETECTED 04/29/21 17:11 Nasal Enterovir/Rhinovir PCR NOT DETECTED 04/29/21 17:11 Nasal Influenza B PCR NOT DETECTED 04/29/21 17:11 Nasal Influenza A PCR NOT DETECTED 04/29/21 17:11 Nasal Parainfluen 1 PCR NOT DETECTED 04/29/21 17:11 Nasal Parainfluen 2 PCR NOT DETECTED 04/29/21 17:11 Nasal Parainfluen 3 PCR NOT DETECTED 04/29/21 17:11 Nasal Parainfluen 4 PCR NOT DETECTED 04/29/21 17:11 Nasal RSV (PCR) NOT DETECTED 04/29/21 17:11 Nasal B.pertussis DNA PCR NOT DETECTED 04/29/21 17:11 Nasal C.pneumoniae (PCR) NOT DETECTED 04/29/21 17:11 Mason Human Metapneumo PCR NOT DETECTED 04/29/21 17:11 Nasal M.pneumoniae (PCR) NOT DETECTED 04/29/21 17:11 Nasal SARS-CoV-2 (PCR) NOT DETECTED 04/29/21 17:11
[2021-04-30] MEDS ORDERED: ONDANSETRON 4 MG/2 ML VIAL ONE (19:05)
[2021-04-30] MEDS ORDERED: SUGAMMADEX 200 MG/2 ML VIAL IVP ONE (19:05)
[2021-04-30] MEDS ORDERED: HYDROmorphone 1 MG/ML CARPUJECT ONE ×2 (19:11→19:54)
[2021-04-30] MEDS ORDERED: LACTATED RINGERS 1,000 ML IV ONE (19:27)
--- NOTE | 2021-04-30 19:49 | OPERATIVE REPORT ---
Operative Report - General Admit Date: 04/29/21 Planned Procedure: Exploratory laparotomy Pre-Op Diagnosis: SBO Procedure Performed: Exploratory laparotomy, lysis of adhesions Post Op Diagnosis: SBO, closed loop obstruction, abdominal adhesions - Procedure Note Primary Surgeon: Tomas Meyer Secondary Surgeon: dl Anesthesia Provider: Jennifer AMAYA Anesthesia Technique: General ET tube Estimated Blood Loss (mL): 50 Indications: *5 yo female with abdominal pain, N/V, SBO confirmed by Ct and gastrografin study. Findings: closed loop mid-jejunal obstruction secondary to extensive adhesions to transverse colon, intra-loop adhesions. Complications: none - Other Other Information/Narrative: The patient was taken to the operating room where general anesthesia was induced, patient was intubated, the abdomen was prepped with ChloraPrep and sterilely draped in the usual fashion. Timeout was accomplished prior to skin incision. Ancef 2 g and Flagyl 500 mg were given IV prior to skin incision. A midline incision was made from the umbilicus to the symphysis pubis with a scalpel and cautery dissection was taken through the subcutaneous fat to the mid line fascia. Midline fascia was incised and the abdomen was explored. Numerous intraloop adhesions were found, along with a closed loop adhesion tethered by the omentum of the trasverse colon. All intraloop adhesions were taken down sharply, and the dense adhesion to the transverse colon mesentery was divided with ligasure. The small bowel was run from the ligament of treitz to the ileocecal valve, and bowel contents were milked distally with no obstruction. No additional stenotic or adhesed areas were noted. The abdomen was suctioned dry and the fascia was closed with running 0 PDS double-stranded. Subcutaneous tissues were approximated with 3-0 Vicryl and skin was closed with clips. Sterile dressing was applied and the patient was then extubated and taken to recovery room in stable condition
[2021-04-30] MEDS: ENOXAPARIN 60 MG/0.6 ML SYRINGE SUBQ SCH (21:28)
[2021-04-30] MEDS: LORazepam 2 MG/ML VIAL IVP PRN (22:10)
[2021-04-30] MEDS: MORPHINE 2 MG/ML CARPUJECT IVP PRN (22:30)
--- NOTE | 2021-04-30 23:40 | ANESTHESIA POST OP EVALUATION ---
Anesthesia Post Eval - Post Anesthesia Eval Vitals: Last Vital Signs Temp 37.2 C 04/30/21 21:29 Pulse 97 04/30/21 21:29 Resp 15 04/30/21 21:29 BP 85/72 L 04/30/21 21:29 Pulse Ox 97 04/30/21 21:29 CV Function Including HR & BP: Stable Pain Control: Satisfactory Nausea & Vomiting: Negative Mental Status: Baseline Respiratory Status: Airway Patent Hydration Status: Satisfactory Anesthesia Complications: None
[2021-05-01] MEDS: MORPHINE 2 MG/ML CARPUJECT IVP PRN ×4 (01:23→17:15)
[2021-05-01] MEDS: SODIUM CHLORIDE FLUSH 0.9% 10 ML SYRINGE IVP SCH ×4 (02:17→23:54)
[2021-05-01] MEDS: LORazepam 2 MG/ML VIAL IVP PRN ×3 (02:41→23:54)
[2021-05-01] MEDS: PANTOPRAZOLE 40 MG VIAL IV SCH (08:03)
[2021-05-01] MEDS: ENOXAPARIN 60 MG/0.6 ML SYRINGE SUBQ SCH (08:03)
[2021-05-01] MEDS: DIGOXIN 500 MCG/2 ML AMP IVP SCH (08:06)
[2021-05-01] MEDS: SODIUM CHLORIDE 0.9% 1,000 ML IV SCH (08:41)
--- NOTE | 2021-05-01 09:17 | PROVIDER PROGRESS NOTE ---
Subjective - General Admit Date: 04/29/21 Procedure Date: 04/30/21 Post Op Days: 1 Procedure Performed: Ex lap, lysis of adhesions - Review of Systems Wound/Incisions: positive: Dressing dry and intact, No drainage General: positive: Other (NG output minimal overnight, NG removed) Gastrointestinal: negative: Nausea, Vomiting, Abdominal pain Objective - Patient Data Vital Signs: Vital Signs x48h Temp Pulse Resp BP Pulse Ox 05/01/21 07:50 36.0 C L 98 18 125/52 L 92 Weight: Weight 04/29/21 04/30/21 05/01/21 23:59 23:59 23:59 Weight (kg) 65 kg 65 kg Intake & Output: Intake and Output Totals x24h 04/29/21 04/30/21 05/01/21 23:59 23:59 23:59 Intake Total 1030 2077.699 1030 Output Total 300 1675 200 Balance 730 402.699 830 - Lab Results Lab Results: 04/30/21 05:30 04/30/21 05:30 - Current Medications Current Medications: Current Medications Generic Name Dose Route Start Last Admin Trade Name Freq PRN Reason Stop Dose Admin Digoxin 125 mcg 04/30/21 09:00 05/01/21 08:06 Digoxin 500 Mcg/2 Ml Amp IVP 125 mcg DAILY GIGI Administration Sodium Chloride 1,000 mls @ 83.333 mls/hr 04/29/21 21:00 05/01/21 08:41 Normal Saline 0.9% IV 83.3 mls/hr .Q12H GIGI Administration Lorazepam 0.5 mg 04/29/21 21:50 05/01/21 02:41 Lorazepam 2 Mg/Ml Vial IVP 0.5 mg Q2H PRN Administration Anxiety Morphine Sulfate 4 mg 04/29/21 20:08 05/01/21 05:05 Morphine 2 Mg/Ml Carpuject IVP 2 mg Q2HR PRN Administration Pain 8 to 10 Ondansetron HCl 4 mg 04/29/21 20:08 04/30/21 14:21 Ondansetron 4 Mg/2 Ml Vial IVP 4 mg Q6HR PRN Administration Nausea / Vomiting Pantoprazole Sodium 40 mg 04/30/21 09:00 05/01/21 08:03 Pantoprazole 40 Mg Vial IV 40 mg DAILY GIGI Administration Phenol/Menthol 2 sprays 04/30/21 02:01 04/30/21 02:46 Phenol Throat [place] 177 Ml MM 2 sprays Q2HR PRN Administration Throat Pain Prochlorperazine Edisylate 10 mg 04/29/21 20:08 04/30/21 10:08 Prochlorperazine 10 Mg/2 Ml Vial IVP 10 mg Q6HR PRN Administration Nausea / Vomiting Sodium Chloride 10 ml 04/30/21 01:00 05/01/21 08:03 Sodium Chloride Flush 0.9% 10 Ml Syringe IVP 10 ml 0100,0900,1700 GIGI Administration Throat Lozenges 1 lozenge 04/29/21 22:10 04/30/21 14:21 Benzocaine/Menthol Lozenge MM 1 lozenge Q2HR PRN Administration Mouth Sore Pain Impression/Plan - Problem List Problem List: POD#1 s/p extensive lysis of adhesions for SBO Patient received one dose of Lovenox this morning- will hold for now. NG discontinued PLAN: Continue NPO. Hold Lovenox.
[2021-05-01] MEDS: ONDANSETRON 4 MG/2 ML VIAL IVP PRN (11:09)
[2021-05-01] MEDS ORDERED: SODIUM CHLORIDE 0.9% 500 ML IV ONE (14:34)
[2021-05-01] MEDS ORDERED: SODIUM CHLORIDE 0.9% 1,000 ML IV SCH (14:35)
--- NOTE | 2021-05-01 14:39 | PROVIDER PROGRESS NOTE ---
Assessment/Plan - Problem List (1) Small bowel obstruction Assessment/Plan: She underwent open lysis of adhesions yesterday, today is POD #1. The surgeon has discontinued her NG tube. She is still n.p.o. by his orders. Further management will be as per surgery (2) Atrial fibrillation Assessment/Plan: The rate is controlled. We have changed her p.o. to IV dosing of meds Eliquis was stopped the day before surgery. She did receive Lovenox yesterday morning but her surgery was yesterday late evening. Because this was a big abdominal surgery, will hold off on resuming any oral anticoagulants, Lovenox or heparin for at least 48 hours (3) CKD (chronic kidney disease) Assessment/Plan: Stable creatinine. Continue with IV fluids while she is NPO Avoid nephrotoxins. Follow BMP daily (4) Dementia with behavioral disturbance Assessment/Plan: Stable. - Current Meds Current Meds: Current Medications Generic Name Dose Route Start Last Admin Trade Name Freq PRN Reason Stop Dose Admin Digoxin 125 mcg 04/30/21 09:00 05/01/21 08:06 Digoxin 500 Mcg/2 Ml Amp IVP 125 mcg DAILY GIGI Administration Morphine Sulfate 2 mg 05/01/21 10:56 05/01/21 11:10 Morphine 2 Mg/Ml Carpuject IVP 2 mg Q8HR PRN Administration Pain 8 to 10 Ondansetron HCl 4 mg 04/29/21 20:08 05/01/21 11:09 Ondansetron 4 Mg/2 Ml Vial IVP 4 mg Q6HR PRN Administration Nausea / Vomiting Phenol/Menthol 2 sprays 04/30/21 02:01 04/30/21 02:46 Phenol Throat [place] 177 Ml MM 2 sprays Q2HR PRN Administration Throat Pain Prochlorperazine Edisylate 10 mg 04/29/21 20:08 04/30/21 10:08 Prochlorperazine 10 Mg/2 Ml Vial IVP 10 mg Q6HR PRN Administration Nausea / Vomiting Sodium Chloride 10 ml 04/30/21 01:00 05/01/21 08:03 Sodium Chloride Flush 0.9% 10 Ml Syringe IVP 10 ml 0100,0900,1700 GIGI Administration Throat Lozenges 1 lozenge 04/29/21 22:10 04/30/21 14:21 Benzocaine/Menthol Lozenge MM 1 lozenge Q2HR PRN Administration Mouth Sore Pain - Lab Result [place] Diagrams: 04/30/21 05:30 04/30/21 05:30 - Additional Planning My Orders: My Active Orders 05/01/21 10:56 LORazepam INJ [Ativan Inj (Vial)] 0.5 mg IVP Q8H PRN Morphine Inj (Carpuject) [Morphine (Carpuject)] 2 mg IVP Q8HR PRN 05/01/21 13:41 D/C [place] Post-Op Day 1 [RC] ONCE Pure Wick [External Catheter Care] [RC] QSHIFT 05/01/21 14:34 0.9% NS 500ML BOLUS X1 Sodium Chloride 0.9% [Normal Saline 0.9%] 500 ml IV ONCE 05/01/21 14:35 Sodium Chloride 0.9% [Normal Saline 0.9%] 1,000 ml IV 1,000 mls/hr Subjective - Subjective Patient Reports: Feeling Better, No Complaints (After Morphine) Objective Vital Signs: Vital Signs - 24 hr 04/30/21 04/30/21 04/30/21 15:35 19:24 19:25 Temperature 38.2 C H 36.9 C 36.9 C Heart Rate 86 88 Heart Rate [ 94 Brachial] Respiratory 15 16 16 Rate Blood Pressure 145/73 H 145/72 H Blood Pressure [Left Brachial] Blood Pressure 113/61 [Right Brachial artery] O2 Saturation 95 100 100 04/30/21 04/30/21 04/30/21 19:30 19:35 19:40 Temperature 36.9 C 36.8 C 36.8 C Heart Rate 93 90 99 Heart Rate [ Brachial] Respiratory 18 15 18 Rate Blood Pressure 133/77 H 133/77 H 145/61 H Blood Pressure [Left Brachial] Blood Pressure [Right Brachial artery] O2 Saturation 100 100 98 04/30/21 04/30/21 04/30/21 19:45 19:50 19:55 Temperature 36.8 C 36.6 C 36.6 C Heart Rate 99 101 H 113 H Heart Rate [ Brachial] Respiratory 18 17 22 Rate Blood Pressure 145/61 H 129/83 H 132/55 H Blood Pressure [Left Brachial] Blood Pressure [Right Brachial artery] O2 Saturation 98 88 L 99 04/30/21 04/30/21 04/30/21 20:00 20:10 20:32 Temperature 36.6 C 37.8 C Heart Rate 98 Heart Rate [ 70 98 Brachial] Respiratory 17 16 14 Rate Blood Pressure 141/80 H Blood Pressure [Left Brachial] Blood Pressure 113/84 H 132/69 H [Right Brachial artery] O2 Saturation 97 97 98 04/30/21 04/30/21 05/01/21 21:29 23:51 07:50 Temperature 37.2 C 36.6 C 36.0 C L Heart Rate Heart Rate [ 97 87 98 Brachial] Respiratory 15 16 18 Rate Blood Pressure Blood Pressure 106/54 L 125/52 L [Left Brachial] Blood Pressure 85/72 L [Right Brachial artery] O2 Saturation 97 95 92 05/01/21 11:11 Temperature 37.4 C Heart Rate Heart Rate [ 94 Brachial] Respiratory 18 Rate Blood Pressure Blood Pressure 124/51 L [Left Brachial] Blood Pressure [Right Brachial artery] O2 Saturation 92 Oxygen O2 Source Room air I&O (Last 24 Hrs): Intake and Output Totals x24h 04/29/21 04/30/21 05/01/21 23:59 23:59 23:59 Intake Total 1030 2077.699 1030 Output Total 300 1675 350 Balance 730 402.699 680 General: Alert, Other (small elderly lady, appears pale) HEENT: Mucous membr. moist/pink Neck: Supple Neuro: Alert, Disoriented, Non Focal Cardiovascular: Regular rate Respiratory: No respiratory distress Abdomen: Soft (Diminished bowel sounds), No tenderness Extremities: No edema - Results Results: Laboratory Results WBC 7.2 x10^3/uL (4.8-10.8) 04/30/21 05:30 RBC 5.02 10^6/uL (4.20-5.40) 04/30/21 05:30 Hgb 15.5 g/dL (12.0-16.0) 04/30/21 05:30 Hct 48.2 % (37.0-47.0) H 04/30/21 05:30 MCV 96.0 fL (81.0-99.0) 04/30/21 05:30 MCH 30.9 pg (27.0-31.0) 04/30/21 05:30 MCHC 32.2 g/dL (32.0-36.0) 04/30/21 05:30 RDW 13.2 % (12.0-15.0) 04/30/21 05:30 Plt Count 201 10^3/uL (130-450) 04/30/21 05:30 MPV 10.7 fL (7.9-10.8) 04/30/21 05:30 Neut # (Auto) Not Reportable 04/30/21 05:30 Lymph # (Auto) Not Reportable 04/30/21 05:30 [place] # (Auto) Not Reportable 04/30/21 05:30 Eos # (Auto) Not Reportable 04/30/21 05:30 Baso # (Auto) Not Reportable 04/30/21 05:30 Absolute Nucleated RBC Not Reportable 04/30/21 05:30 Total Counted 100 04/30/21 05:30 Band Neuts % (Manual) 1 % (0-10) 04/30/21 05:30 Abnorm Lymph % (Manual) 0 % 04/30/21 05:30 Nucleated RBC % Not Reportable 04/30/21 05:30 Neutrophils # (Manual) 5.9 10^3/uL (1.5-6.6) 04/30/21 05:30 Lymphocytes # (Manual) 0.6 10^3/uL (1.5-3.5) L 04/30/21 05:30 Monocytes # (Manual) 0.7 10^3/uL (0.0-1.0) 04/30/21 05:30 Eosinophils # (Manual) 0.0 10^3/uL (0-0.7) 04/30/21 05:30 Basophils # (Manual) 0.0 10^3/uL (0-0.1) 04/30/21 05:30 Differential Comment MANUAL DIFFERENTIAL 04/30/21 05:30 WBC Morphology NORMAL APPEARANCE (NORMAL) 04/30/21 05:30 Platelet Estimate NORMAL (130-450,000) (NORMAL) 04/30/21 05:30 Platelet Morphology NORMAL APPEARANCE (NORMAL) 04/30/21 05:30 RBC Morph Micro Appear NORMAL APPEARANCE (NORMAL) 04/30/21 05:30 PT 14.5 secs (9.9-12.6) H 04/29/21 20:30 INR 1.3 (0.8-1.2) H 04/29/21 20:30 Sodium 138 mmol/L (135-145) 04/30/21 05:30 Potassium 4.2 mmol/L (3.5-5.0) 04/30/21 05:30 Chloride 100 mmol/L (101-111) L 04/30/21 05:30 Carbon Dioxide 25 mmol/L (21-32) 04/30/21 05:30 Anion Gap 13.0 (6-13) 04/30/21 05:30 BUN 28 mg/dL (6-20) H 04/30/21 05:30 Creatinine 1.1 mg/dL (0.4-1.0) H 04/30/21 05:30 Estimated GFR (MDRD) 47 (>89) L 04/30/21 05:30 Glucose 158 mg/dL (70-100) H 04/30/21 05:30 Lactic Acid 1.5 mmol/L (0.5-2.2) 04/29/21 20:30 Calcium 8.8 mg/dL (8.5-10.3) 04/30/21 05:30 Total Bilirubin 1.5 mg/dL (0.2-1.0) H 04/29/21 16:23 AST 29 IU/L (10-42) 04/29/21 16:23 ALT 20 IU/L (10-60) 04/29/21 16:23 Alkaline Phosphatase 74 IU/L (42-121) 04/29/21 16:23 Total Protein 8.3 g/dL (6.7-8.2) H 04/29/21 16:23 Albumin 5.2 g/dL (3.2-5.5) 04/29/21 16:23 Globulin 3.1 g/dL (2.1-4.2) 04/29/21 16:23 Albumin/Globulin Ratio 1.7 (1.0-2.2) 04/29/21 16:23 Lipase 29 U/L (22-51) 04/29/21 16:23 Nasal Adenovirus (PCR) NOT DETECTED 04/29/21 17:11 Nasal B. parapertussis DNA (PCR) NOT DETECTED 04/29/21 17:11 Nasal Coronavir 229E PCR NOT DETECTED 04/29/21 17:11 Nasal Coronavir HKU1 PCR NOT DETECTED 04/29/21 17:11 Nasal Coronavir NL63 PCR NOT DETECTED 04/29/21 17:11 Nasal Coronavir OC43 PCR NOT DETECTED 04/29/21 17:11 Nasal Enterovir/Rhinovir PCR NOT DETECTED 04/29/21 17:11 Nasal Influenza B PCR NOT DETECTED 04/29/21 17:11 Nasal Influenza A PCR NOT DETECTED 04/29/21 17:11 Nasal Parainfluen 1 PCR NOT DETECTED 04/29/21 17:11 Nasal Parainfluen 2 PCR NOT DETECTED 04/29/21 17:11 Nasal Parainfluen 3 PCR NOT DETECTED 04/29/21 17:11 Nasal Parainfluen 4 PCR NOT DETECTED 04/29/21 17:11 Nasal RSV (PCR) NOT DETECTED 04/29/21 17:11 Nasal B.pertussis DNA PCR NOT DETECTED 04/29/21 17:11 Nasal C.pneumoniae (PCR) NOT DETECTED 04/29/21 17:11 [place] Human Metapneumo PCR NOT DETECTED 04/29/21 17:11 Nasal M.pneumoniae (PCR) NOT DETECTED 04/29/21 17:11 Nasal SARS-CoV-2 (PCR) NOT DETECTED 04/29/21 17:11
--- NOTE | 2021-05-01 14:40 | PHARMACY PROGRESS NOTE ---
- Best Possible Medication History Admit Date and Time: 04/29/212007 Processed by: Pharmacy Medication History completed: Yes Patient Interview: Pt unable to participate Secondary Source(s): Insurance records As the person ultimately responsible for medication therapy, providers are able to order a medication from an existing home medication list in [facility] via the "Reconcile Routine" prior to Confirmation of that medication by support team assoc. Such practice is discouraged except when the physician, in their clinical judgment, deems that a medical need exists for a medication without regard to previous use.
[2021-05-01] MEDS: DEXTROSE 5%-0.9% NACL 1,000 ML IV SCH (15:22)
[2021-05-01] MEDS: ACETAMINOPHEN 1,000 MG/100 ML 100 ML IV PRN (18:57)
[2021-05-02] MEDS: DEXTROSE 5%-0.9% NACL 1,000 ML IV SCH ×2 (01:43→11:52)
[2021-05-02] MEDS: MORPHINE 2 MG/ML CARPUJECT IVP PRN ×2 (02:42→21:00)
[2021-05-02] MEDS: ACETAMINOPHEN 1,000 MG/100 ML 100 ML IV PRN ×4 (04:37→23:25)
[2021-05-02] MEDS: PANTOPRAZOLE 40 MG VIAL IVP SCH (06:11)
[2021-05-02] MEDS: SODIUM CHLORIDE FLUSH 0.9% 10 ML SYRINGE IVP PRN (06:11)
[2021-05-02] MEDS: DIGOXIN 500 MCG/2 ML AMP IVP SCH (09:23)
[2021-05-02] MEDS: SODIUM CHLORIDE FLUSH 0.9% 10 ML SYRINGE IVP SCH ×2 (09:25→17:41)
[2021-05-02 10:45] LABS: BASOPHILS % (AUTO) 0.4 %; EOSINOPHILS % (AUTO) 0.1 %; HCT - HEMATOCRIT 45.4 % (37.0-47.0); LYMPHOCYTES # (AUTO) 0.5 10^3/uL (1.5-3.5); LYMPHOCYTES % (AUTO) 7.7 %; MEAN CORPUSCULAR HEMOGLOBIN 31.3 pg (27.0-31.0); MEAN CORPUSCULAR HGB CONC 30.8 g/dL (32.0-36.0); MEAN CORPUSCULAR VOLUME 101.6 fL (81.0-99.0); MEAN PLATELET VOLUME 10.3 fL (7.9-10.8); MONOCYTES # (AUTO) 0.4 10^3/uL (0.0-1.0); MONOCYTES % (AUTO) 5.4 %; NEUTROPHILS % (AUTO) 85.7 %; PLT - PLATELET COUNT 156 10^3/uL (130-450); RED BLOOD COUNT 4.47 10^6/uL (4.20-5.40)
[2021-05-02 10:55] LABS: CALCIUM 7.9 mg/dL (8.5-10.3); CREATININE 0.9 mg/dL (0.4-1.0); MAGNESIUM 2.2 mg/dL (1.7-2.8)
[2021-05-02] MEDS ORDERED: D5.45NS W/20 MEQ KCL 1,000 ML IV STA (15:28)
--- NOTE | 2021-05-02 15:33 | PROVIDER PROGRESS NOTE ---
Subjective - General Admit Date: 04/29/21 Procedure Date: 04/30/21 Post Op Days: 2 Procedure Performed: Ex lap, lysis of adhesions - Review of Systems Wound/Incisions: positive: Dressing dry and intact, No drainage General: positive: Other (NG output minimal overnight, NG removed) Gastrointestinal: positive: Abdominal pain (Mild. No BM yet.). negative: N ausea, Vomiting Objective - Patient Data Vital Signs: Vital Signs x48h Temp Pulse Pulse Pulse Resp BP Pulse Ox 05/02/21 11:55 93 24 144/80 H 89 L 05/02/21 09:23 86 05/02/21 08:15 36.7 C 89 24 140/76 H 90 L Weight: Weight 04/30/21 05/01/21 05/02/21 23:59 23:59 23:59 Weight (kg) 65 kg Intake & Output: Intake and Output Totals x24h 04/30/21 05/01/21 05/02/21 23:59 23:59 23:59 Intake Total 2077.699 2142 2100 Output Total 1675 350 950 Balance 487.243 6473 1150 - Lab Results Lab Results: 05/02/21 10:39 05/02/21 10:39 Other Lab Results: Lab Results x24hrs 05/02/21 05/02/21 Range/Units 10:39 10:39 WBC 7.0 (4.8-10.8) x10^3/uL RBC 4.47 (4.20-5.40) 10^6/uL Hgb 14.0 (12.0-16.0) g/dL Hct 45.4 (37.0-47.0) % MCV 101.6 H (81.0-99.0) fL MCH 31.3 H (27.0-31.0) pg MCHC 30.8 L (32.0-36.0) g/dL RDW 14.0 (12.0-15.0) % Plt Count 156 (130-450) 10^3/uL MPV 10.3 (7.9-10.8) fL Neut # (Auto) 6.0 (1.5-6.6) 10^3/uL Lymph # (Auto) 0.5 L (1.5-3.5) 10^3/uL [place] # (Auto) 0.4 (0.0-1.0) 10^3/uL Eos # (Auto) 0.0 (0.0-0.7) 10^3/uL Baso # (Auto) 0.0 (0.0-0.1) 10^3/uL Absolute Nucleated RBC 0.00 x10^3/uL Nucleated RBC % 0.0 /100WBC Sodium 147 H (135-145) mmol/L Potassium 4.0 (3.5-5.0) mmol/L Chloride 112 H (101-111) mmol/L Carbon Dioxide 25 (21-32) mmol/L Anion Gap 10.0 (6-13) BUN 13 (6-20) mg/dL Creatinine 0.9 (0.4-1.0) mg/dL Estimated GFR (MDRD) 60 L (>89) Glucose 152 H (70-100) mg/dL Calcium 7.9 L (8.5-10.3) mg/dL Magnesium 2.2 (1.7-2.8) mg/dL - Current Medications Current Medications: Current Medications Generic Name Dose Route Start Last Admin Trade Name Freq PRN Reason Stop Dose Admin Digoxin 125 mcg 04/30/21 09:00 05/02/21 09:23 Digoxin 500 Mcg/2 Ml Amp IVP 125 mcg DAILY GIGI Administration Acetaminophen 100 mls @ 400 mls/hr 05/01/21 14:59 05/02/21 11:51 Ofirmev IV 400 mls/hr Q6HR PRN Administration PAIN Lorazepam 0.5 mg 05/01/21 10:56 05/01/21 23:54 Lorazepam 2 Mg/Ml Vial IVP 0.5 mg Q8H PRN Administration Anxiety Morphine Sulfate 2 mg 05/01/21 10:56 05/02/21 02:42 Morphine 2 Mg/Ml Carpuject IVP 2 mg Q8HR PRN Administration Pain 8 to 10 Ondansetron HCl 4 mg 04/29/21 20:08 05/01/21 11:09 Ondansetron 4 Mg/2 Ml Vial IVP 4 mg Q6HR PRN Administration Nausea / Vomiting Pantoprazole Sodium 40 mg 05/02/21 07:00 05/02/21 06:11 Pantoprazole 40 Mg Vial IVP 40 mg QDAC GIGI Administration Phenol/Menthol 2 sprays 04/30/21 02:01 04/30/21 02:46 Phenol Throat [place] 177 Ml MM 2 sprays Q2HR PRN Administration Throat Pain Prochlorperazine Edisylate 10 mg 04/29/21 20:08 04/30/21 10:08 Prochlorperazine 10 Mg/2 Ml Vial IVP 10 mg Q6HR PRN Administration Nausea / Vomiting Sodium Chloride 10 ml 04/29/21 20:08 05/02/21 06:11 Sodium Chloride Flush 0.9% 10 Ml Syringe IVP 10 ml PRN PRN Administration NEEDED PER PROVIDER ORDERS Sodium Chloride 10 ml 04/30/21 01:00 05/02/21 09:25 Sodium Chloride Flush 0.9% 10 Ml Syringe IVP 10 ml 0100,0900,1700 GIGI Administration Throat Lozenges 1 lozenge 04/29/21 22:10 04/30/21 14:21 Benzocaine/Menthol Lozenge MM 1 lozenge Q2HR PRN Administration Mouth Sore Pain Impression/Plan - Problem List Problem List: SBO 2 days s/p extensive lysis of adhesions. No BM yet. Not out of bed much. Abdomen mildly distended, no N/V. Elevated Na and Cl- IV fluids changed to 1/2 NS with dextrose Atrial fib- holding any antocoagulation for now. Restart per Dr Zambrano. Signing out patient to Dr Laura Rodarte.
--- NOTE | 2021-05-02 20:48 | PROVIDER PROGRESS NOTE ---
Assessment/Plan - Problem List (1) Small bowel obstruction Assessment/Plan: She underwent open lysis of adhesions yesterday, today is POD #2. The surgeon has discontinued her NG tube. She is still n.p.o. by his orders. Further management will be as per surgery (2) Atrial fibrillation Assessment/Plan: The rate is controlled. We have changed her p.o. to IV dosing of meds Eliquis was stopped the day before surgery. She did receive Lovenox yesterday morning but her surgery was yesterday late evening. Because this was a big abdominal surgery, will hold off on resuming any oral anticoagulants, Lovenox or heparin for at least 48 hours (3) CKD (chronic kidney disease) Assessment/Plan: Stable creatinine. Continue with IV fluids while she is NPO Avoid nephrotoxins. Follow BMP daily (4) Dementia with behavioral disturbance Assessment/Plan: Stable. - Current Meds Current Meds: Current Medications Generic Name Dose Route Start Last Admin Trade Name Freq PRN Reason Stop Dose Admin Digoxin 125 mcg 04/30/21 09:00 05/02/21 09:23 Digoxin 500 Mcg/2 Ml Amp IVP 125 mcg DAILY GIGI Administration Acetaminophen 100 mls @ 400 mls/hr 05/01/21 14:59 05/02/21 17:36 Ofirmev IV 400 mls/hr Q6HR PRN Administration PAIN Potassium Chloride/Dextrose/Sod Cl 1,000 mls @ 83.333 mls/hr 05/02/21 15:28 05/02/21 17:33 D5.45ns W/20 Meq Kcl IV 05/03/21 03:27 83.333 mls/hr .Q12H STA Administration Lorazepam 0.5 mg 05/01/21 10:56 05/01/21 23:54 Lorazepam 2 Mg/Ml Vial IVP 0.5 mg Q8H PRN Administration Anxiety Morphine Sulfate 2 mg 05/01/21 10:56 05/02/21 02:42 Morphine 2 Mg/Ml Carpuject IVP 2 mg Q8HR PRN Administration Pain 8 to 10 Ondansetron HCl 4 mg 04/29/21 20:08 05/01/21 11:09 Ondansetron 4 Mg/2 Ml Vial IVP 4 mg Q6HR PRN Administration Nausea / Vomiting Pantoprazole Sodium 40 mg 05/02/21 07:00 05/02/21 06:11 Pantoprazole 40 Mg Vial IVP 40 mg QDAC GIGI Administration Phenol/Menthol 2 sprays 04/30/21 02:01 04/30/21 02:46 Phenol Throat [place] 177 Ml MM 2 sprays Q2HR PRN Administration Throat Pain Prochlorperazine Edisylate 10 mg 04/29/21 20:08 04/30/21 10:08 Prochlorperazine 10 Mg/2 Ml Vial IVP 10 mg Q6HR PRN Administration Nausea / Vomiting Sodium Chloride 10 ml 04/29/21 20:08 05/02/21 06:11 Sodium Chloride Flush 0.9% 10 Ml Syringe IVP 10 ml PRN PRN Administration NEEDED PER PROVIDER ORDERS Sodium Chloride 10 ml 04/30/21 01:00 05/02/21 17:41 Sodium Chloride Flush 0.9% 10 Ml Syringe IVP 10 ml 0100,0900,1700 GIGI Administration Throat Lozenges 1 lozenge 04/29/21 22:10 04/30/21 14:21 Benzocaine/Menthol Lozenge MM 1 lozenge Q2HR PRN Administration Mouth Sore Pain - Lab Result Fish Bone Diagrams: 05/02/21 10:39 05/02/21 10:39 - Additional Planning My Orders: My Active Orders 05/02/21 21:00 Enoxaparin [Lovenox] 60 mg SUBQ BID 05/03/21 05:00 BMP - BASIC METABOLIC PANEL [CHEM] DAILYLAB CBC - COMP BLD CT W/AUTO DIFF [HEME] DAILYLAB PHOSPHORUS [CHEM] DAILYLAB 05/04/21 05:00 BMP - BASIC METABOLIC PANEL [CHEM] DAILYLAB CBC - COMP BLD CT W/AUTO DIFF [HEME] DAILYLAB Subjective - Subjective Patient Reports: Resting Comfortably, Pain (Needs pain for incisional pain) Objective Vital Signs: Vital Signs - 24 hr 05/01/21 05/02/21 05/02/21 23:46 08:15 09:23 Temperature 37.0 C 36.7 C Heart Rate 86 Heart Rate [ 84 89 Brachial] Heart Rate [ Radial] Respiratory 18 24 Rate Blood Pressure 126/61 140/76 H [Left Brachial] O2 Saturation 95 90 L 05/02/21 05/02/21 11:55 16:00 Temperature 37.8 C Heart Rate Heart Rate [ 61 Brachial] Heart Rate [ 93 Radial] Respiratory 24 18 Rate Blood Pressure 144/80 H 134/52 H [Left Brachial] O2 Saturation 89 L 93 Oxygen O2 Source Oxymask I&O (Last 24 Hrs): Intake and Output Totals x24h 04/30/21 05/01/21 05/02/21 23:59 23:59 23:59 Intake Total 2077.699 2142 2200 Output Total 1675 350 950 Balance 652.991 6371 1250 General: Alert HEENT: Mucous membr. moist/pink Neck: Supple Neuro: Alert, Disoriented Cardiovascular: Other (Irreg) Respiratory: No respiratory distress Abdomen: Other (diminished bowel sounds) Extremities: No edema - Results Results: Laboratory Results WBC 7.0 x10^3/uL (4.8-10.8) 05/02/21 10:39 RBC 4.47 10^6/uL (4.20-5.40) 05/02/21 10:39 Hgb 14.0 g/dL (12.0-16.0) 05/02/21 10:39 Hct 45.4 % (37.0-47.0) 05/02/21 10:39 MCV 101.6 fL (81.0-99.0) H 05/02/21 10:39 MCH 31.3 pg (27.0-31.0) H 05/02/21 10:39 MCHC 30.8 g/dL (32.0-36.0) L 05/02/21 10:39 RDW 14.0 % (12.0-15.0) 05/02/21 10:39 Plt Count 156 10^3/uL (130-450) 05/02/21 10:39 MPV 10.3 fL (7.9-10.8) 05/02/21 10:39 Neut # (Auto) 6.0 10^3/uL (1.5-6.6) 05/02/21 10:39 Lymph # (Auto) 0.5 10^3/uL (1.5-3.5) L 05/02/21 10:39 [place] # (Auto) 0.4 10^3/uL (0.0-1.0) 05/02/21 10:39 Eos # (Auto) 0.0 10^3/uL (0.0-0.7) 05/02/21 10:39 Baso # (Auto) 0.0 10^3/uL (0.0-0.1) 05/02/21 10:39 Absolute Nucleated RBC 0.00 x10^3/uL 05/02/21 10:39 Total Counted 100 04/30/21 05:30 Band Neuts % (Manual) 1 % (0-10) 04/30/21 05:30 Abnorm Lymph % (Manual) 0 % 04/30/21 05:30 Nucleated RBC % 0.0 /100WBC 05/02/21 10:39 Neutrophils # (Manual) 5.9 10^3/uL (1.5-6.6) 04/30/21 05:30 Lymphocytes # (Manual) 0.6 10^3/uL (1.5-3.5) L 04/30/21 05:30 Monocytes # (Manual) 0.7 10^3/uL (0.0-1.0) 04/30/21 05:30 Eosinophils # (Manual) 0.0 10^3/uL (0-0.7) 04/30/21 05:30 Basophils # (Manual) 0.0 10^3/uL (0-0.1) 04/30/21 05:30 Differential Comment MANUAL DIFFERENTIAL 04/30/21 05:30 WBC Morphology NORMAL APPEARANCE (NORMAL) 04/30/21 05:30 Platelet Estimate NORMAL (130-450,000) (NORMAL) 04/30/21 05:30 Platelet Morphology NORMAL APPEARANCE (NORMAL) 04/30/21 05:30 RBC Morph Micro Appear NORMAL APPEARANCE (NORMAL) 04/30/21 05:30 PT 14.5 secs (9.9-12.6) H 04/29/21 20:30 INR 1.3 (0.8-1.2) H 04/29/21 20:30 Sodium 147 mmol/L (135-145) H 05/02/21 10:39 Potassium 4.0 mmol/L (3.5-5.0) 05/02/21 10:39 Chloride 112 mmol/L (101-111) H 05/02/21 10:39 Carbon Dioxide 25 mmol/L (21-32) 05/02/21 10:39 Anion Gap 10.0 (6-13) 05/02/21 10:39 BUN 13 mg/dL (6-20) 05/02/21 10:39 Creatinine 0.9 mg/dL (0.4-1.0) 05/02/21 10:39 Estimated GFR (MDRD) 60 (>89) L 05/02/21 10:39 Glucose 152 mg/dL (70-100) H 05/02/21 10:39 Lactic Acid 1.5 mmol/L (0.5-2.2) 04/29/21 20:30 Calcium 7.9 mg/dL (8.5-10.3) L 05/02/21 10:39 Magnesium 2.2 mg/dL (1.7-2.8) 05/02/21 10:39 Total Bilirubin 1.5 mg/dL (0.2-1.0) H 04/29/21 16:23 AST 29 IU/L (10-42) 04/29/21 16:23 ALT 20 IU/L (10-60) 04/29/21 16:23 Alkaline Phosphatase 74 IU/L (42-121) 04/29/21 16:23 Total Protein 8.3 g/dL (6.7-8.2) H 04/29/21 16:23 Albumin 5.2 g/dL (3.2-5.5) 04/29/21 16:23 Globulin 3.1 g/dL (2.1-4.2) 04/29/21 16:23 Albumin/Globulin Ratio 1.7 (1.0-2.2) 04/29/21 16:23 Lipase 29 U/L (22-51) 04/29/21 16:23 Nasal Adenovirus (PCR) NOT DETECTED 04/29/21 17:11 Nasal B. parapertussis DNA (PCR) NOT DETECTED 04/29/21 17:11 Nasal Coronavir 229E PCR NOT DETECTED 04/29/21 17:11 Nasal Coronavir HKU1 PCR NOT DETECTED 04/29/21 17:11 Nasal Coronavir NL63 PCR NOT DETECTED 04/29/21 17:11 Nasal Coronavir OC43 PCR NOT DETECTED 04/29/21 17:11 Nasal Enterovir/Rhinovir PCR NOT DETECTED 04/29/21 17:11 Nasal Influenza B PCR NOT DETECTED 04/29/21 17:11 Nasal Influenza A PCR NOT DETECTED 04/29/21 17:11 Nasal Parainfluen 1 PCR NOT DETECTED 04/29/21 17:11 Nasal Parainfluen 2 PCR NOT DETECTED 04/29/21 17:11 Nasal Parainfluen 3 PCR NOT DETECTED 04/29/21 17:11 Nasal Parainfluen 4 PCR NOT DETECTED 04/29/21 17:11 Nasal RSV (PCR) NOT DETECTED 04/29/21 17:11 Nasal B.pertussis DNA PCR NOT DETECTED 04/29/21 17:11 Nasal C.pneumoniae (PCR) NOT DETECTED 04/29/21 17:11 [place] Human Metapneumo PCR NOT DETECTED 04/29/21 17:11 Nasal M.pneumoniae (PCR) NOT DETECTED 04/29/21 17:11 Nasal SARS-CoV-2 (PCR) NOT DETECTED 04/29/21 17:11
[2021-05-02] MEDS: LORazepam 2 MG/ML VIAL IVP PRN (22:56)
[2021-05-02] MEDS: ENOXAPARIN 60 MG/0.6 ML SYRINGE SUBQ SCH (23:10)
[2021-05-03] MEDS: SODIUM CHLORIDE FLUSH 0.9% 10 ML SYRINGE IVP SCH ×4 (03:25→21:55)
[2021-05-03] MEDS: MORPHINE 2 MG/ML CARPUJECT IVP PRN (04:24)
[2021-05-03] MEDS: PANTOPRAZOLE 40 MG VIAL IVP SCH (06:21)
[2021-05-03] MEDS: ACETAMINOPHEN 1,000 MG/100 ML 100 ML IV PRN ×3 (07:52→21:53)
[2021-05-03] MEDS: ENOXAPARIN 60 MG/0.6 ML SYRINGE SUBQ SCH ×2 (07:52→20:22)
[2021-05-03] MEDS: DIGOXIN 500 MCG/2 ML AMP IVP SCH (07:53)
[2021-05-03 08:22] LABS: BASOPHILS % (AUTO) 0.3 %; EOSINOPHILS % (AUTO) 0.2 %; HCT - HEMATOCRIT 45.2 % (37.0-47.0); HGB - HEMOGLOBIN 14.2 g/dL (12.0-16.0); LYMPHOCYTES # (AUTO) 0.7 10^3/uL (1.5-3.5); LYMPHOCYTES % (AUTO) 7.8 %; MEAN CORPUSCULAR HEMOGLOBIN 31.1 pg (27.0-31.0); MEAN CORPUSCULAR HGB CONC 31.4 g/dL (32.0-36.0); MEAN CORPUSCULAR VOLUME 99.1 fL (81.0-99.0); MEAN PLATELET VOLUME 10.8 fL (7.9-10.8); MONOCYTES # (AUTO) 0.6 10^3/uL (0.0-1.0); NEUTROPHILS # (AUTO) 7.7 10^3/uL (1.5-6.6); NEUTROPHILS % (AUTO) 84.2 %; PLT - PLATELET COUNT 176 10^3/uL (130-450); RED BLOOD COUNT 4.56 10^6/uL (4.20-5.40); RED CELL DISTRIBUTION WIDTH 13.6 % (12.0-15.0); WHITE BLOOD COUNT 9.2 x10^3/uL (4.8-10.8)
[2021-05-03 08:34] LABS: CALCIUM 8.1 mg/dL (8.5-10.3); CREATININE 0.7 mg/dL (0.4-1.0); PHOSPHORUS 1.3 mg/dL (2.5-4.6); POTASSIUM 3.3 mmol/L (3.5-5.0)
--- NOTE | 2021-05-03 08:52 | XRAY Report ---
PROCEDURE: Chest 1 View X-Ray INDICATIONS: sob TECHNIQUE: One view of the chest was acquired. COMPARISON: None FINDINGS: Surgical changes and devices: None. Lungs and pleura: There are bilateral pleural effusions, larger on the left. The lungs have diffuse airspace opacities consistent with CHF or a diffuse infectious process. There is consolidation in the right lower lobe medially. Mediastinum: Mediastinal contours appear normal. Heart size is normal. Bones and chest wall: No suspicious bony lesions. Overlying soft tissues appear unremarkable. IMPRESSION: 1. Diffuse bilateral airspace opacities consistent with CHF or a diffuse infectious process with cons olidation in the right lower lobe. 2. Bilateral pleural effusions, larger on the left. Reviewed by: Michael Schreiber on 05/03/2021 8:51 AM PDT Approved by: Michael Schreiber on 05/03/2021 8:51 AM PDT Station ID: [id number]
[2021-05-03] MEDS: DEXTROSE 5%-0.45% NACL 1,000 ML IV SCH (09:17)
[2021-05-03] MEDS: LORazepam 2 MG/ML VIAL IVP PRN ×3 (09:17→22:58)
[2021-05-03] MEDS ORDERED: POTASSIUM PHOSPHATE 15 MMOL in SODIUM CHLORIDE 0.9% 250 ML IV ONE (11:00)
--- NOTE | 2021-05-03 15:14 | PROVIDER PROGRESS NOTE ---
Subjective - General Admit Date: 04/29/21 Procedure Date: 04/30/21 Post Op Days: 3 Procedure Performed: Ex lap, lysis of adhesions - Review of Systems Wound/Incisions: positive: Dressing dry and intact, No drainage General: positive: Other Gastrointestinal: positive: Abdominal pain (Mild. No BM yet.). negative: Nausea, Vomiting - Other Other Information/Narrative: A period of nausea this AM but not this afternoon. Walked in the [place] with staff and did well by report. Sat on the toilet this afternoon but has not passed flatus or stool. Confused. Getting electrolyte replacement IV Objective - Patient Data Reviewed Vital Signs: Yes Vital Signs: Vital Signs x48h Temp Pulse Pulse Resp BP Pulse Ox 05/03/21 08:05 36.1 C L 102 H 20 144/75 H 92 05/03/21 07:53 104 H Intake & Output: Intake and Output Totals x24h 05/01/21 05/02/21 05/03/21 23:59 23:59 23:59 Intake Total 2142 2871 1000 Output Total 350 1050 350 Balance 1792 1821 650 - Lab Results Lab Results: 05/03/21 08:00 05/03/21 08:00 Other Lab Results: Lab Results x24hrs 05/03/21 05/03/21 Range/Units 08:00 08:00 WBC 9.2 (4.8-10.8) x10^3/uL RBC 4.56 (4.20-5.40) 10^6/uL Hgb 14.2 (12.0-16.0) g/dL Hct 45.2 (37.0-47.0) % MCV 99.1 H (81.0-99.0) fL MCH 31.1 H (27.0-31.0) pg MCHC 31.4 L (32.0-36.0) g/dL RDW 13.6 (12.0-15.0) % Plt Count 176 (130-450) 10^3/uL MPV 10.8 (7.9-10.8) fL Neut # (Auto) 7.7 H (1.5-6.6) 10^3/uL Lymph # (Auto) 0.7 L (1.5-3.5) 10^3/uL [place] # (Auto) 0.6 (0.0-1.0) 10^3/uL Eos # (Auto) 0.0 (0.0-0.7) 10^3/uL Baso # (Auto) 0.0 (0.0-0.1) 10^3/uL Absolute Nucleated RBC 0.00 x10^3/uL Nucleated RBC % 0.0 /100WBC Sodium 141 (135-145) mmol/L Potassium 3.3 L (3.5-5.0) mmol/L Chloride 108 (101-111) mmol/L Carbon Dioxide 24 (21-32) mmol/L Anion Gap 9.0 (6-13) BUN 11 (6-20) mg/dL Creatinine 0.7 (0.4-1.0) mg/dL Estimated GFR (MDRD) 80 L (>89) Glucose 111 H (70-100) mg/dL Calcium 8.1 L (8.5-10.3) mg/dL Phosphorus 1.3 L (2.5-4.6) mg/dL - Imaging Results Imaging Results Comments: Bilateral pleural effusions on CXR this AM - Current Medications Current Medications: Current Medications Generic Name Dose Route Start Last Admin Trade Name Freq PRN Reason Stop Dose Admin Digoxin 125 mcg 04/30/21 09:00 05/03/21 07:53 Digoxin 500 Mcg/2 Ml Amp IVP 125 mcg DAILY GIGI Administration Enoxaparin Sodium 60 mg 05/02/21 21:00 05/03/21 07:52 Enoxaparin 60 Mg/0.6 Ml Syringe SUBQ 60 mg BID GIGI Administration Acetaminophen 100 mls @ 400 mls/hr 05/01/21 14:59 05/03/21 14:59 Ofirmev IV 400 mls/hr Q6HR PRN Administration PAIN Dextrose/Sodium Chloride 1,000 mls @ 83.333 mls/hr 05/03/21 09:00 05/03/21 09:17 D5.45ns IV 05/04/21 08:59 83.333 mls/hr .Q12H GIGI Administration Lorazepam 0.5 mg 05/01/21 10:56 05/03/21 14:58 Lorazepam 2 Mg/Ml Vial IVP 0.5 mg Q8H PRN Administration Anxiety Morphine Sulfate 2 mg 05/01/21 10:56 05/03/21 04:24 Morphine 2 Mg/Ml Carpuject IVP 2 mg Q8HR PRN Administration Pain 8 to 10 Ondansetron HCl 4 mg 04/29/21 20:08 05/01/21 11:09 Ondansetron 4 Mg/2 Ml Vial IVP 4 mg Q6HR PRN Administration Nausea / Vomiting Pantoprazole Sodium 40 mg 05/02/21 07:00 05/03/21 06:21 Pantoprazole 40 Mg Vial IVP 40 mg QDAC GIGI Administration Phenol/Menthol 2 sprays 04/30/21 02:01 04/30/21 02:46 Phenol Throat [place] 177 Ml MM 2 sprays Q2HR PRN Administration Throat Pain Prochlorperazine Edisylate 10 mg 04/29/21 20:08 04/30/21 10:08 Prochlorperazine 10 Mg/2 Ml Vial IVP 10 mg Q6HR PRN Administration Nausea / Vomiting Sodium Chloride 10 ml 04/29/21 20:08 05/02/21 06:11 Sodium Chloride Flush 0.9% 10 Ml Syringe IVP 10 ml PRN PRN Administration NEEDED PER PROVIDER ORDERS Sodium Chloride 10 ml 04/30/21 01:00 05/03/21 07:55 Sodium Chloride Flush 0.9% 10 Ml Syringe IVP 10 ml 0100,0900,1700 GIGI Administration Throat Lozenges 1 lozenge 04/29/21 22:10 04/30/21 14:21 Benzocaine/Menthol Lozenge MM 1 lozenge Q2HR PRN Administration Mouth Sore Pain - Physical Exam Wound/Incisions: positive: Healing well, No drainage General Appearance: positive: No acute distress, Lethargic (Just recieved Ativan for agitation and confusion) Eyes Bilateral: positive: Normal inspection Abdomen: positive: Nml bowel sounds, Tenderness (appropriately tender.) Skin: positive: Pallor Neurologic/Psychiatric: positive: Oriented x3 ABX Reporting Has patient been on IV antibiotics over the past 48 hours?: No Impression/Plan - Problem List Problem List: Ileus status post extensive lysis of adhesions for closed loop obstruction. 1. Bowel sounds are improving and she has had minimal nausea tolerated ice chips starting yesterday. 2.Start Reglan 5 mg every 8 hours 3.Continue ambulation 4.Dulcolax suppository this p.m. 5.Clear liquid diet in the a.m. if she is clear enough mentally to swallow safely
--- NOTE | 2021-05-03 16:20 | PROVIDER PROGRESS NOTE ---
Assessment/Plan - Problem List (1) Small bowel obstruction Assessment/Plan: She underwent open lysis of adhesions yesterday, today is s/p #3. Patient is still not passed gas and bowel movement yet. But the patient had active bowel sounds. Clinically patient did not present pneumonia symptoms, Patient had slightly elevated temperature to 38. But the patient did not show shortness breathing or cough or wheezy. Chest x-ray is ordered show possible pneumonia and left lower pleural effusion. Patient need 4 liter of oxygen to support now. We will order blood culture, Continue close monitor patient's respiratory status, we may start with antibiotics if worsen. thank surgery's followup, start with Reglan, and started with clear diet on tomorrow. Continue and encourage patient walk as tolerated. (2) Atrial fibrillation Assessment/Plan: The rate is controlled. Continue intravenous digoxin, metoprolol as needed, Check digoxin serum concentration. Patient is on Lovenox twice daily for atrial fibrillation. We may start with Eliquis on tomorrow after the patient begin p.o. medication (3) CKD (chronic kidney disease) Assessment/Plan: Stable creatinine. Continue with IV fluids while she is NPO Avoid nephrotoxins. Follow BMP daily (4) Dementia with behavioral disturbance Assessment/Plan: confused, but Stable likely as pt's baseline - Current Meds Current Meds: Current Medications Generic Name Dose Route Start Last Admin Trade Name Freq PRN Reason Stop Dose Admin Digoxin 125 mcg 04/30/21 09:00 05/03/21 07:53 Digoxin 500 Mcg/2 Ml Amp IVP 125 mcg DAILY GIGI Administration Enoxaparin Sodium 60 mg 05/02/21 21:00 05/03/21 07:52 Enoxaparin 60 Mg/0.6 Ml Syringe SUBQ 60 mg BID GIGI Administration Acetaminophen 100 mls @ 400 mls/hr 05/01/21 14:59 05/03/21 14:59 Ofirmev IV 400 mls/hr Q6HR PRN Administration PAIN Dextrose/Sodium Chloride 1,000 mls @ 83.333 mls/hr 05/03/21 09:00 05/03/21 09:17 D5.45ns IV 05/04/21 08:59 83.333 mls/hr .Q12H GIGI Administration Lorazepam 0.5 mg 05/01/21 10:56 05/03/21 14:58 Lorazepam 2 Mg/Ml Vial IVP 0.5 mg Q8H PRN Administration Anxiety Morphine Sulfate 2 mg 05/01/21 10:56 05/03/21 04:24 Morphine 2 Mg/Ml Carpuject IVP 2 mg Q8HR PRN Administration Pain 8 to 10 Ondansetron HCl 4 mg 04/29/21 20:08 05/01/21 11:09 Ondansetron 4 Mg/2 Ml Vial IVP 4 mg Q6HR PRN Administration Nausea / Vomiting Pantoprazole Sodium 40 mg 05/02/21 07:00 05/03/21 06:21 Pantoprazole 40 Mg Vial IVP 40 mg QDAC GIGI Administration Phenol/Menthol 2 sprays 04/30/21 02:01 04/30/21 02:46 Phenol Throat [place] 177 Ml MM 2 sprays Q2HR PRN Administration Throat Pain Sodium Chloride 10 ml 04/29/21 20:08 05/02/21 06:11 Sodium Chloride Flush 0.9% 10 Ml Syringe IVP 10 ml PRN PRN Administration NEEDED PER PROVIDER ORDERS Sodium Chloride 10 ml 04/30/21 01:00 05/03/21 07:55 Sodium Chloride Flush 0.9% 10 Ml Syringe IVP 10 ml 0100,0900,1700 GIGI Administration Throat Lozenges 1 lozenge 04/29/21 22:10 04/30/21 14:21 Benzocaine/Menthol Lozenge MM 1 lozenge Q2HR PRN Administration Mouth Sore Pain - Lab Result Fish Bone Diagrams: 05/03/21 08:00 05/03/21 08:00 - Additional Planning My Orders: My Active Orders 05/03/21 08:13 Incentive Spirometry - RT [RC] TID 05/03/21 08:34 MISC TEST QUEST REFRIG [REFLAB] Routine 05/03/21 09:00 Dextrose 5%-0.45% NaCl [D5.45ns] 1,000 ml IV 83.333 mls/hr 05/03/21 15:00 Potassium Chlor 10 Meq/100 ml [Potassium Chloride] 10 meq in 100 ml IV Q1H Subjective - Subjective Nursing Reports: Confused Objective Vital Signs: Vital Signs - 24 hr 05/02/21 05/03/21 05/03/21 23:08 01:00 06:20 Temperature 37.0 C 36.8 C Heart Rate Heart Rate [ 89 95 Brachial] Respiratory 20 22 18 Rate Blood Pressure 129/74 121/70 [Left Brachial] O2 Saturation 95 91 L 90 L 05/03/21 05/03/21 05/03/21 07:53 08:05 16:00 Temperature 36.1 C L 38.0 C H Heart Rate 104 H Heart Rate [ 102 H 80 Brachial] Respiratory 20 18 Rate Blood Pressure 144/75 H 129/71 [Left Brachial] O2 Saturation 92 92 Oxygen O2 Source Nasal cannula I&O (Last 24 Hrs): Intake and Output Totals x24h 05/01/21 05/02/21 05/03/21 23:59 23:59 23:59 Intake Total 2142 2871 1000 Output Total 350 1050 350 Balance 1792 1821 650 General: Alert, Cooperative, Mild distress HEENT: Atraumatic Neck: Supple Lymphatic: no adenopathy Neuro: Alert, Non Focal Cardiovascular: Regular rate, Normal S1, Normal S2 Respiratory: Chest non-tender, No respiratory distress Abdomen: Normal bowel sounds, Soft, No tenderness Extremities: Normal pulses - Results Results: Laboratory Results WBC 9.2 x10^3/uL (4.8-10.8) 05/03/21 08:00 RBC 4.56 10^6/uL (4.20-5.40) 05/03/21 08:00 Hgb 14.2 g/dL (12.0-16.0) 05/03/21 08:00 Hct 45.2 % (37.0-47.0) 05/03/21 08:00 MCV 99.1 fL (81.0-99.0) H 05/03/21 08:00 MCH 31.1 pg (27.0-31.0) H 05/03/21 08:00 MCHC 31.4 g/dL (32.0-36.0) L 05/03/21 08:00 RDW 13.6 % (12.0-15.0) 05/03/21 08:00 Plt Count 176 10^3/uL (130-450) 05/03/21 08:00 MPV 10.8 fL (7.9-10.8) 05/03/21 08:00 Neut # (Auto) 7.7 10^3/uL (1.5-6.6) H 05/03/21 08:00 Lymph # (Auto) 0.7 10^3/uL (1.5-3.5) L 05/03/21 08:00 [place] # (Auto) 0.6 10^3/uL (0.0-1.0) 05/03/21 08:00 Eos # (Auto) 0.0 10^3/uL (0.0-0.7) 05/03/21 08:00 Baso # (Auto) 0.0 10^3/uL (0.0-0.1) 05/03/21 08:00 Absolute Nucleated RBC 0.00 x10^3/uL 05/03/21 08:00 Total Counted 100 04/30/21 05:30 Band Neuts % (Manual) 1 % (0-10) 04/30/21 05:30 Abnorm Lymph % (Manual) 0 % 04/30/21 05:30 Nucleated RBC % 0.0 /100WBC 05/03/21 08:00 Neutrophils # (Manual) 5.9 10^3/uL (1.5-6.6) 04/30/21 05:30 Lymphocytes # (Manual) 0.6 10^3/uL (1.5-3.5) L 04/30/21 05:30 Monocytes # (Manual) 0.7 10^3/uL (0.0-1.0) 04/30/21 05:30 Eosinophils # (Manual) 0.0 10^3/uL (0-0.7) 04/30/21 05:30 Basophils # (Manual) 0.0 10^3/uL (0-0.1) 04/30/21 05:30 Differential Comment MANUAL DIFFERENTIAL 04/30/21 05:30 WBC Morphology NORMAL APPEARANCE (NORMAL) 04/30/21 05:30 Platelet Estimate NORMAL (130-450,000) (NORMAL) 04/30/21 05:30 Platelet Morphology NORMAL APPEARANCE (NORMAL) 04/30/21 05:30 RBC Morph Micro Appear NORMAL APPEARANCE (NORMAL) 04/30/21 05:30 PT 14.5 secs (9.9-12.6) H 04/29/21 20:30 INR 1.3 (0.8-1.2) H 04/29/21 20:30 Sodium 141 mmol/L (135-145) 05/03/21 08:00 Potassium 3.3 mmol/L (3.5-5.0) L 05/03/21 08:00 Chloride 108 mmol/L (101-111) 05/03/21 08:00 Carbon Dioxide 24 mmol/L (21-32) 05/03/21 08:00 Anion Gap 9.0 (6-13) 05/03/21 08:00 BUN 11 mg/dL (6-20) 05/03/21 08:00 Creatinine 0.7 mg/dL (0.4-1.0) 05/03/21 08:00 Estimated GFR (MDRD) 80 (>89) L 05/03/21 08:00 Glucose 111 mg/dL (70-100) H 05/03/21 08:00 Lactic Acid 1.5 mmol/L (0.5-2.2) 04/29/21 20:30 Calcium 8.1 mg/dL (8.5-10.3) L 05/03/21 08:00 Phosphorus 1.3 mg/dL (2.5-4.6) L 05/03/21 08:00 Magnesium 2.2 mg/dL (1.7-2.8) 05/02/21 10:39 Total Bilirubin 1.5 mg/dL (0.2-1.0) H 04/29/21 16:23 AST 29 IU/L (10-42) 04/29/21 16:23 ALT 20 IU/L (10-60) 04/29/21 16:23 Alkaline Phosphatase 74 IU/L (42-121) 04/29/21 16:23 Total Protein 8.3 g/dL (6.7-8.2) H 04/29/21 16:23 Albumin 5.2 g/dL (3.2-5.5) 04/29/21 16:23 Globulin 3.1 g/dL (2.1-4.2) 04/29/21 16:23 Albumin/Globulin Ratio 1.7 (1.0-2.2) 04/29/21 16:23 Lipase 29 U/L (22-51) 04/29/21 16:23 Nasal Adenovirus (PCR) NOT DETECTED 04/29/21 17:11 Nasal B. parapertussis DNA (PCR) NOT DETECTED 04/29/21 17:11 Nasal Coronavir 229E PCR NOT DETECTED 04/29/21 17:11 Nasal Coronavir HKU1 PCR NOT DETECTED 04/29/21 17:11 Nasal Coronavir NL63 PCR NOT DETECTED 04/29/21 17:11 Nasal Coronavir OC43 PCR NOT DETECTED 04/29/21 17:11 Nasal Enterovir/Rhinovir PCR NOT DETECTED 04/29/21 17:11 Nasal Influenza B PCR NOT DETECTED 04/29/21 17:11 Nasal Influenza A PCR NOT DETECTED 04/29/21 17:11 Nasal Parainfluen 1 PCR NOT DETECTED 04/29/21 17:11 Nasal Parainfluen 2 PCR NOT DETECTED 04/29/21 17:11 Nasal Parainfluen 3 PCR NOT DETECTED 04/29/21 17:11 Nasal Parainfluen 4 PCR NOT DETECTED 04/29/21 17:11 Nasal RSV (PCR) NOT DETECTED 04/29/21 17:11 Nasal B.pertussis DNA PCR NOT DETECTED 04/29/21 17:11 Nasal C.pneumoniae (PCR) NOT DETECTED 04/29/21 17:11 Mason Human Metapneumo PCR NOT DETECTED 04/29/21 17:11 Nasal M.pneumoniae (PCR) NOT DETECTED 04/29/21 17:11 Nasal SARS-CoV-2 (PCR) NOT DETECTED 04/29/21 17:11 ABX Reporting Has patient been on IV antibiotics over the past 48 hours?: No Current Medications - Current Medications Current Medications: Active Medications Bisacodyl (Bisacodyl 10 Mg Supp) 10 mg MS DAILY [facility] Last Admin: 05/03/21 16:24 Dose: 10 mg Documented by: Digoxin (Digoxin 500 Mcg/2 Ml Amp) 125 mcg IVP DAILY [facility] Last Admin: 05/03/21 07:53 Dose: 125 mcg Documented by: Enoxaparin Sodium (Enoxaparin 60 Mg/0.6 Ml Syringe) 60 mg SUBQ BID [facility] Last Admin: 05/03/21 07:52 Dose: 60 mg Documented by: Acetaminophen (Ofirmev) 100 mls @ 400 mls/hr IV Q6HR PRN PRN Reason: PAIN Last Admin: 05/03/21 14:59 Dose: 400 mls/hr Documented by: Dextrose/Sodium Chloride (D5.45ns) 1,000 mls @ 83.333 mls/hr IV .Q12H [facility] Stop: 05/04/21 08:59 Last Admin: 05/03/21 09:17 Dose: 83.333 mls/hr Documented by: Potassium Chloride (Potassium Chloride) 10 meq in 100 mls @ 100 mls/hr IV Q1H [facility] Stop: 05/03/21 16:59 Last Admin: 05/03/21 16:25 Dose: 100 mls/hr Documented by: Lorazepam (Lorazepam 2 Mg/Ml Vial) 0.5 mg IVP Q8H PRN PRN Reason: Anxiety Last Admin: 05/03/21 14:58 Dose: 0.5 mg Documented by: Metoclopramide HCl (Metoclopramide 10 Mg/2 Ml Vial) 5 mg IVP Q8HR [facility] Last Admin: 05/03/21 16:25 Dose: 5 mg Documented by: Metoprolol Tartrate (Metoprolol 5 Mg/5 Ml Vial) 2.5 mg IVP Q6HR PRN PRN Reason: PER PHYSICIAN ORDER Morphine Sulfate (Morphine 2 Mg/Ml Carpuject) 2 mg IVP Q8HR PRN PRN Reason: Pain 8 to 10 Last Admin: 05/03/21 04:24 Dose: 2 mg Documented by: Ondansetron HCl (Ondansetron 4 Mg/2 Ml Vial) 4 mg IVP Q6HR PRN PRN Reason: Nausea / Vomiting Last Admin: 05/01/21 11:09 Dose: 4 mg Documented by: Pantoprazole Sodium (Pantoprazole 40 Mg Vial) 40 mg IVP QDAC [facility] Last Admin: 05/03/21 06:21 Dose: 40 mg Documented by: Phenol/Menthol (Phenol Throat Stanton 177 Ml) 2 sprays MM Q2HR PRN PRN Reason: Throat Pain Last Admin: 04/30/21 02:46 Dose: 2 sprays Documented by: Sodium Chloride (Sodium Chloride Flush 0.9% 10 Ml Syringe) 10 ml IVP PRN PRN PRN Reason: NEEDED PER PROVIDER ORDERS Last Admin: 05/02/21 06:11 Dose: 10 ml Documented by: Sodium Chloride (Sodium Chloride Flush 0.9% 10 Ml Syringe) 10 ml IVP 0100,0900,1700 [facility] Last Admin: 05/03/21 07:55 Dose: 10 ml Documented by: Sodium Phosphate (Neutra-Phos 250 Mg Tablet) 250 mg PO TIDWM [facility] Throat Lozenges (Benzocaine/Menthol Lozenge) 1 lozenge MM Q2HR PRN PRN Reason: Mouth Sore Pain Last Admin: 04/30/21 14:21 Dose: 1 lozenge Documented by: Apixaban [Eliquis] 2.5 mg PO BID 04/30/21 Cholecalciferol [Vitamin D3] 25 mcg PO DAILY 04/30/21 Digoxin [Lanoxin] 125 mcg PO DAILY 04/30/21 QUEtiapine [SEROquel] 25 mg PO QPM 04/30/21
[2021-05-03] MEDS: BISACODYL 10 MG SUPP PR SCH (16:24)
[2021-05-03] MEDS: POTASSIUM CHLOR 10 MEQ/100 ML 10 MEQ/100 ML BAG IV SCH ×2 (16:25→17:37)
[2021-05-03] MEDS: METOCLOPRAMIDE 10 MG/2 ML VIAL IVP SCH ×2 (16:25→21:49)
[2021-05-03] MEDS ORDERED: NEUTRA-PHOS 250 MG TABLET PO SCH (17:00)
--- NOTE | 2021-05-03 17:04 | XRAY Report ---
PROCEDURE: Abdomen 1 View X-Ray INDICATIONS: small bowel obstruction and then ileus TECHNIQUE: 1 view of the abdomen were acquired. COMPARISON: CT abdomen pelvis 04/29/2021. FINDINGS: Surgical changes and devices: None. Bowel: No pneumoperitoneum. The bowel gas pattern demonstrates mild persistent appearance of small bowel loops within the pelvis although mildly improved compared to prior exam. Contrast remains prese nt in the colon likely secondary to small bowel follow-through on 04/30/2021. Soft tissues: No masses; visualized solid organ contours appear normal in size. No suspicious abdom inal calcifications. Bones: No suspicious bony abnormalities. IMPRESSION: Persistent appearance of partial small bowel obstruction although improved. Residual con trast is noted within the colon suggestive of delayed transit/ileus. Reviewed by: Leeanne Moody MD on 05/03/2021 5:02 PM PDT Approved by: Leeanne Moody MD on 05/03/2021 5:02 PM PDT Station ID: [id number]
[2021-05-03] MEDS ORDERED: AZITHROMYCIN 250 MG TABLET PO SCH (17:48)
[2021-05-03] MEDS: cefTRIAXone 1 GM in SODIUM CHLORIDE 0.9% MINIBAG 100 ML IV SCH (19:02)
[2021-05-04] MEDS: DEXTROSE 5%-0.45% NACL 1,000 ML IV SCH (02:57)
[2021-05-04] MEDS: PANTOPRAZOLE 40 MG VIAL IVP SCH (06:08)
[2021-05-04] MEDS: METOCLOPRAMIDE 10 MG/2 ML VIAL IVP SCH ×3 (06:10→21:56)
[2021-05-04 06:46] LABS: BASOPHILS % (AUTO) 0.4 %; EOSINOPHILS % (AUTO) 0.8 %; HCT - HEMATOCRIT 44.7 % (37.0-47.0); HGB - HEMOGLOBIN 14.4 g/dL (12.0-16.0); LYMPHOCYTES # (AUTO) 0.6 10^3/uL (1.5-3.5); LYMPHOCYTES % (AUTO) 12.9 %; MEAN CORPUSCULAR HEMOGLOBIN 31.2 pg (27.0-31.0); MEAN CORPUSCULAR HGB CONC 32.2 g/dL (32.0-36.0); MEAN PLATELET VOLUME 10.4 fL (7.9-10.8); MONOCYTES # (AUTO) 0.4 10^3/uL (0.0-1.0); MONOCYTES % (AUTO) 7.4 %; NEUTROPHILS # (AUTO) 3.8 10^3/uL (1.5-6.6); NEUTROPHILS % (AUTO) 76.7 %; PLT - PLATELET COUNT 177 10^3/uL (130-450); RED BLOOD COUNT 4.61 10^6/uL (4.20-5.40); RED CELL DISTRIBUTION WIDTH 13.3 % (12.0-15.0); WHITE BLOOD COUNT 4.9 x10^3/uL (4.8-10.8)
[2021-05-04 07:02] LABS: CREATININE 0.8 mg/dL (0.4-1.0); POTASSIUM 3.2 mmol/L (3.5-5.0)
[2021-05-04] MEDS: ACETAMINOPHEN 1,000 MG/100 ML 100 ML IV PRN (07:48)
[2021-05-04] MEDS: POTASSIUM CHLOR 10 MEQ/100 ML 10 MEQ/100 ML BAG IV SCH ×4 (07:54→12:01)
[2021-05-04] MEDS: SACCHAROMYCES BOULARDII 250 MG CAPSULE PO SCH ×2 (07:54→16:45)
[2021-05-04] MEDS: DIGOXIN 500 MCG/2 ML AMP IVP SCH (07:59)
[2021-05-04] MEDS ORDERED: METOPROLOL 5 MG/5 ML VIAL IVP PRN (08:13)
[2021-05-04] MEDS: AZITHROMYCIN INJ 500 MG in SODIUM CHLORIDE 0.9% 250 ML IV SCH (09:14)
[2021-05-04] MEDS: ENOXAPARIN 60 MG/0.6 ML SYRINGE SUBQ SCH (09:16)
[2021-05-04] MEDS: SODIUM CHLORIDE FLUSH 0.9% 10 ML SYRINGE IVP SCH ×2 (09:16→16:45)
[2021-05-04] MEDS: ONDANSETRON 4 MG/2 ML VIAL IVP PRN (09:24)
[2021-05-04] MEDS: SODIUM CHLORIDE FLUSH 0.9% 10 ML SYRINGE IVP PRN ×2 (09:24→14:16)
[2021-05-04] MEDS: BISACODYL 10 MG SUPP PR SCH (09:25)
[2021-05-04] MEDS: cefTRIAXone 1 GM in SODIUM CHLORIDE 0.9% MINIBAG 100 ML IV SCH (10:41)
[2021-05-04] MEDS ORDERED: POTASSIUM PHOSPHATE 21 MMOL in SODIUM CHLORIDE 0.9% 250 ML IV ONE (12:00)
--- NOTE | 2021-05-04 13:04 | PROVIDER PROGRESS NOTE ---
Assessment/Plan - Problem List (1) Small bowel obstruction Assessment/Plan: 05/04 improved. pt had a small bowel movement on yesterday and today. Patient tolerated clear diet. followup with surgeon's recommendation She underwent open lysis of adhesions yesterday, today is s/p #3. Patient is still not passed gas and bowel movement yet. But the patient had active bowel sounds. Clinically patient did not present pneumonia symptoms, Patient had slightly elevated temperature to 38. But the patient did not show shortness breathing or cough or wheezy. Chest x-ray is ordered show possible pneumonia and left lower pleural effusion. Patient need 4 liter of oxygen to support now. We will order blood culture, Continue close monitor patient's respiratory status, we may start with antibiotics if worsen. thank surgery's followup, start with Reglan, and started with clear diet on tomorrow. Continue and encourage patient walk as tolerated. (2) Atrial fibrillation Assessment/Plan: 05/04 Patient's heart rate is controlled. digoxin is hold now because Serum concentration is 3.2. We will continue to monitor digoxin serum concentration. Continue Metoprolol intravenous PRN. Switch Lovenox to home medication Eliquis. The rate is controlled. Continue intravenous digoxin, metoprolol as needed, Check digoxin serum concentration. Patient is on Lovenox twice daily for atrial fibrillation. We may start with Eliquis on tomorrow after the patient begin p.o. medication (3) CKD (chronic kidney disease) Assessment/Plan: Stable creatinine. Continue with IV fluids while she is NPO Avoid nephrotoxins. Follow BMP daily (4) Dementia with behavioral disturbance Assessment/Plan: confused, but Stable likely as pt's baseline (5)fever Patient has low degree fever, blood cultures are pending. chest x-ray show right lower lobe possible pneumonia, patient required oxygen supplement. add incentive spirometer, antibiotics, probiotics. encourage pt walk safely with nurse. - Current Meds Current Meds: Current Medications Generic Name Dose Route Start Last Admin Trade Name Freq PRN Reason Stop Dose Admin Bisacodyl 10 mg 05/03/21 16:00 05/04/21 09:25 Bisacodyl 10 Mg Supp MD 10 mg DAILY GIGI Administration Acetaminophen 100 mls @ 400 mls/hr 05/01/21 14:59 05/04/21 08:05 Ofirmev IV Infused Q6HR PRN Infusion PAIN Ceftriaxone Sodium 1 gm/ 100 mls @ 200 mls/hr 05/03/21 17:48 05/04/21 11:15 Sodium Chloride IV Infused DAILY GIGI Infusion Azithromycin 500 mg/ Sodium 250 mls @ 250 mls/hr 05/04/21 09:00 05/04/21 10:40 Chloride IV 05/06/21 09:59 Infused DAILY GIGI Infusion Lorazepam 0.5 mg 05/01/21 10:56 05/03/21 22:58 Lorazepam 2 Mg/Ml Vial IVP 0.5 mg Q8H PRN Administration Anxiety Metoclopramide HCl 5 mg 05/03/21 16:00 05/04/21 06:10 Metoclopramide 10 Mg/2 Ml Vial IVP 5 mg Q8HR GIGI Administration Morphine Sulfate 2 mg 05/01/21 10:56 05/03/21 04:24 Morphine 2 Mg/Ml Carpuject IVP 2 mg Q8HR PRN Administration Pain 8 to 10 Ondansetron HCl 4 mg 04/29/21 20:08 05/04/21 09:24 Ondansetron 4 Mg/2 Ml Vial IVP 4 mg Q6HR PRN Administration Nausea / Vomiting Pantoprazole Sodium 40 mg 05/02/21 07:00 05/04/21 06:08 Pantoprazole 40 Mg Vial IVP 40 mg QDAC GIGI Administration Phenol/Menthol 2 sprays 04/30/21 02:01 04/30/21 02:46 Phenol Throat [place] 177 Ml MM 2 sprays Q2HR PRN Administration Throat Pain Saccharomyces Boulardii 250 mg 05/04/21 08:00 05/04/21 07:54 Saccharomyces Boulardii 250 Mg Capsule PO 250 mg BIDWM GIGI Administration Sodium Chloride 10 ml 04/29/21 20:08 05/04/21 09:24 Sodium Chloride Flush 0.9% 10 Ml Syringe IVP 10 ml PRN PRN Administration NEEDED PER PROVIDER ORDERS Sodium Chloride 10 ml 04/30/21 01:00 05/04/21 09:16 Sodium Chloride Flush 0.9% 10 Ml Syringe IVP Not Given 0100,0900,1700 GIGI Throat Lozenges 1 lozenge 04/29/21 22:10 04/30/21 14:21 Benzocaine/Menthol Lozenge MM 1 lozenge Q2HR PRN Administration Mouth Sore Pain - Lab Result Fish Bone Diagrams: 05/04/21 06:30 05/04/21 06:30 - Additional Planning My Orders: My Active Orders 05/03/21 16:43 Blood Culture [CULTURE, BLOOD #1] [RM] Urgent 05/03/21 16:49 Blood Culture [CULTURE, BLOOD #2] [RM] Urgent 05/03/21 17:48 cefTRIAXone [Rocephin] 1 gm Sodium Chloride 0.9% Minibag [Normal Saline 0.9% Minibag] 100 ml IV DAILY 05/04/21 Breakfast Clear Liquid Diet [DIET] 05/04/21 08:00 Saccharomyces Boulardii [Florastor] 250 mg PO BIDWM 05/04/21 08:13 Metoprolol Inj [Lopressor Inj] 2.5 mg IVP Q6HR PRN 05/04/21 09:00 Azithromycin Inj [Zithromax Inj] 500 mg Sodium Chloride 0.9% [Normal Saline 0.9%] 250 ml IV DAILY 05/04/21 12:00 Potassium Phosphate 21 mmol Sodium Chloride 0.9% [Normal Saline 0.9%] 250 ml IV ONCE 05/04/21 12:55 Out of bed 3+ hours today [RC] TID 05/04/21 21:00 Apixaban [Eliquis] 2.5 mg PO BID 05/05/21 05:00 BMP - BASIC METABOLIC PANEL [CHEM] DAILYLAB CBC - COMP BLD CT W/AUTO DIFF [HEME] DAILYLAB DIGOXIN [CHEM] DAILYLAB PHOSPHORUS [CHEM] DAILYLAB 05/06/21 05:00 BMP - BASIC METABOLIC PANEL [CHEM] DAILYLAB CBC - COMP BLD CT W/AUTO DIFF [HEME] DAILYLAB PHOSPHORUS [CHEM] DAILYLAB 05/07/21 05:00 BMP - BASIC METABOLIC PANEL [CHEM] DAILYLAB CBC - COMP BLD CT W/AUTO DIFF [HEME] DAILYLAB PHOSPHORUS [CHEM] DAILYLAB 05/08/21 05:00 BMP - BASIC METABOLIC PANEL [CHEM] DAILYLAB CBC - COMP BLD CT W/AUTO DIFF [HEME] DAILYLAB PHOSPHORUS [CHEM] DAILYLAB 05/09/21 05:00 BMP - BASIC METABOLIC PANEL [CHEM] DAILYLAB CBC - COMP BLD CT W/AUTO DIFF [HEME] DAILYLAB Subjective - Subjective Nursing Reports: Confused Objective Vital Signs: Vital Signs - 24 hr 05/03/21 05/03/21 05/03/21 16:00 19:38 22:47 Temperature 38.0 C H 37.8 C Heart Rate [ 80 100 Brachial] Respiratory 18 18 Rate Blood Pressure 129/71 135/58 H [Left Brachial] O2 Saturation 92 93 96 05/04/21 07:30 Temperature 37.3 C Heart Rate [ 94 Brachial] Respiratory 19 Rate Blood Pressure 134/77 H [Left Brachial] O2 Saturation 90 L Oxygen O2 Source Nasal cannula I&O (Last 24 Hrs): Intake and Output Totals x24h 05/02/21 05/03/21 05/04/21 23:59 23:59 23:59 Intake Total 2871 1855 2200.845 Output Total 6727 213 7702 Balance 1821 1005 1075.845 General: Alert, Cooperative, No acute distress HEENT: Atraumatic, PERRLA Neck: Supple Lymphatic: no adenopathy Neuro: Alert, Non Focal Cardiovascular: Regular rate, Normal S1, Normal S2 Respiratory: Chest non-tender, No respiratory distress Abdomen: Normal bowel sounds, Soft Extremities: Normal pulses - Results Results: Laboratory Results WBC 4.9 x10^3/uL (4.8-10.8) 05/04/21 06:30 RBC 4.61 10^6/uL (4.20-5.40) 05/04/21 06:30 Hgb 14.4 g/dL (12.0-16.0) 05/04/21 06:30 Hct 44.7 % (37.0-47.0) 05/04/21 06:30 MCV 97.0 fL (81.0-99.0) 05/04/21 06:30 MCH 31.2 pg (27.0-31.0) H 05/04/21 06:30 MCHC 32.2 g/dL (32.0-36.0) 05/04/21 06:30 RDW 13.3 % (12.0-15.0) 05/04/21 06:30 Plt Count 177 10^3/uL (130-450) 05/04/21 06:30 MPV 10.4 fL (7.9-10.8) 05/04/21 06:30 Neut # (Auto) 3.8 10^3/uL (1.5-6.6) 05/04/21 06:30 Lymph # (Auto) 0.6 10^3/uL (1.5-3.5) L 05/04/21 06:30 [place] # (Auto) 0.4 10^3/uL (0.0-1.0) 05/04/21 06:30 Eos # (Auto) 0.0 10^3/uL (0.0-0.7) 05/04/21 06:30 Baso # (Auto) 0.0 10^3/uL (0.0-0.1) 05/04/21 06:30 Absolute Nucleated RBC 0.00 x10^3/uL 05/04/21 06:30 Total Counted 100 04/30/21 05:30 Band Neuts % (Manual) 1 % (0-10) 04/30/21 05:30 Abnorm Lymph % (Manual) 0 % 04/30/21 05:30 Nucleated RBC % 0.0 /100WBC 05/04/21 06:30 Neutrophils # (Manual) 5.9 10^3/uL (1.5-6.6) 04/30/21 05:30 Lymphocytes # (Manual) 0.6 10^3/uL (1.5-3.5) L 04/30/21 05:30 Monocytes # (Manual) 0.7 10^3/uL (0.0-1.0) 04/30/21 05:30 Eosinophils # (Manual) 0.0 10^3/uL (0-0.7) 04/30/21 05:30 Basophils # (Manual) 0.0 10^3/uL (0-0.1) 04/30/21 05:30 Differential Comment MANUAL DIFFERENTIAL 04/30/21 05:30 WBC Morphology NORMAL APPEARANCE (NORMAL) 04/30/21 05:30 Platelet Estimate NORMAL (130-450,000) (NORMAL) 04/30/21 05:30 Platelet Morphology NORMAL APPEARANCE (NORMAL) 04/30/21 05:30 RBC Morph Micro Appear NORMAL APPEARANCE (NORMAL) 04/30/21 05:30 PT 14.5 secs (9.9-12.6) H 04/29/21 20:30 INR 1.3 (0.8-1.2) H 04/29/21 20:30 Sodium 140 mmol/L (135-145) 05/04/21 06:30 Potassium 3.2 mmol/L (3.5-5.0) L 05/04/21 06:30 Chloride 107 mmol/L (101-111) 05/04/21 06:30 Carbon Dioxide 23 mmol/L (21-32) 05/04/21 06:30 Anion Gap 10.0 (6-13) 05/04/21 06:30 BUN 10 mg/dL (6-20) 05/04/21 06:30 Creatinine 0.8 mg/dL (0.4-1.0) 05/04/21 06:30 Estimated GFR (MDRD) 68 (>89) L 05/04/21 06:30 Glucose 121 mg/dL (70-100) H 05/04/21 06:30 Lactic Acid 1.5 mmol/L (0.5-2.2) 04/29/21 20:30 Calcium 8.0 mg/dL (8.5-10.3) L 05/04/21 06:30 Phosphorus 1.6 mg/dL (2.5-4.6) L 05/04/21 06:30 Magnesium 2.2 mg/dL (1.7-2.8) 05/02/21 10:39 Total Bilirubin 1.5 mg/dL (0.2-1.0) H 04/29/21 16:23 AST 29 IU/L (10-42) 04/29/21 16:23 ALT 20 IU/L (10-60) 04/29/21 16:23 Alkaline Phosphatase 74 IU/L (42-121) 04/29/21 16:23 Troponin I High Sens 24.8 ng/L (2.3-14.8) H* 05/04/21 06:30 Total Protein 8.3 g/dL (6.7-8.2) H 04/29/21 16:23 Albumin 5.2 g/dL (3.2-5.5) 04/29/21 16:23 Globulin 3.1 g/dL (2.1-4.2) 04/29/21 16:23 Albumin/Globulin Ratio 1.7 (1.0-2.2) 04/29/21 16:23 Lipase 29 U/L (22-51) 04/29/21 16:23 Nasal Adenovirus (PCR) NOT DETECTED 04/29/21 17:11 Nasal B. parapertussis DNA (PCR) NOT DETECTED 04/29/21 17:11 Nasal Coronavir 229E PCR NOT DETECTED 04/29/21 17:11 Nasal Coronavir HKU1 PCR NOT DETECTED 04/29/21 17:11 Nasal Coronavir NL63 PCR NOT DETECTED 04/29/21 17:11 Nasal Coronavir OC43 PCR NOT DETECTED 04/29/21 17:11 Nasal Enterovir/Rhinovir PCR NOT DETECTED 04/29/21 17:11 Nasal Influenza B PCR NOT DETECTED 04/29/21 17:11 Nasal Influenza A PCR NOT DETECTED 04/29/21 17:11 Nasal Parainfluen 1 PCR NOT DETECTED 04/29/21 17:11 Nasal Parainfluen 2 PCR NOT DETECTED 04/29/21 17:11 Nasal Parainfluen 3 PCR NOT DETECTED 04/29/21 17:11 Nasal Parainfluen 4 PCR NOT DETECTED 04/29/21 17:11 Nasal RSV (PCR) NOT DETECTED 04/29/21 17:11 Nasal B.pertussis DNA PCR NOT DETECTED 04/29/21 17:11 Nasal C.pneumoniae (PCR) NOT DETECTED 04/29/21 17:11 [place] Human Metapneumo PCR NOT DETECTED 04/29/21 17:11 Nasal M.pneumoniae (PCR) NOT DETECTED 04/29/21 17:11 Nasal SARS-CoV-2 (PCR) NOT DETECTED 04/29/21 17:11 Ref Lab Test Result REPORT 05/03/21 08:34 ABX Reporting Has patient been on IV antibiotics over the past 48 hours?: Yes Current Medications - Current Medications Current Medications: Active Medications Apixaban (Apixaban 2.5 Mg Tablet) 2.5 mg PO BID [facility] Bisacodyl (Bisacodyl 10 Mg Supp) 10 mg MD DAILY GIGI Last Admin: 05/04/21 09:25 Dose: 10 mg Documented by: Acetaminophen (Ofirmev) 100 mls @ 400 mls/hr IV Q6HR PRN PRN Reason: PAIN Last Infusion: 05/04/21 08:05 Dose: Infused Documented by: Ceftriaxone Sodium 1 gm/ (Sodium Chloride) 100 mls @ 200 mls/hr IV DAILY GIGI Last Infusion: 05/04/21 11:15 Dose: Infused Documented by: Azithromycin 500 mg/ Sodium (Chloride) 250 mls @ 250 mls/hr IV DAILY [facility] Stop: 05/06/21 09:59 Last Infusion: 05/04/21 10:40 Dose: Infused Documented by: Potassium Phosphate 21 mmol/ (Sodium Chloride) 257 mls @ 42.833 mls/hr IV ONCE ONE Stop: 05/04/21 17:59 Last Admin: 05/04/21 13:04 Dose: 42.8 mls/hr Documented by: Lorazepam (Lorazepam 2 Mg/Ml Vial) 0.5 mg IVP Q8H PRN PRN Reason: Anxiety Last Admin: 05/03/21 22:58 Dose: 0.5 mg Documented by: Metoclopramide HCl (Metoclopramide 10 Mg/2 Ml Vial) 5 mg IVP Q8HR [facility] Last Admin: 05/04/21 06:10 Dose: 5 mg Documented by: Metoprolol Tartrate (Metoprolol 5 Mg/5 Ml Vial) 2.5 mg IVP Q6HR PRN PRN Reason: PER PHYSICIAN ORDER Morphine Sulfate (Morphine 2 Mg/Ml Carpuject) 2 mg IVP Q8HR PRN PRN Reason: Pain 8 to 10 Last Admin: 05/03/21 04:24 Dose: 2 mg Documented by: Ondansetron HCl (Ondansetron 4 Mg/2 Ml Vial) 4 mg IVP Q6HR PRN PRN Reason: Nausea / Vomiting Last Admin: 05/04/21 09:24 Dose: 4 mg Documented by: Pantoprazole Sodium (Pantoprazole 40 Mg Vial) 40 mg IVP QDAC [facility] Last Admin: 05/04/21 06:08 Dose: 40 mg Documented by: Phenol/Menthol (Phenol Throat [place] 177 Ml) 2 sprays MM Q2HR PRN PRN Reason: Throat Pain Last Admin: 04/30/21 02:46 Dose: 2 sprays Documented by: Saccharomyces Boulardii (Saccharomyces Boulardii 250 Mg Capsule) 250 mg PO BIDWM [facility] Last Admin: 05/04/21 07:54 Dose: 250 mg Documented by: Sodium Chloride (Sodium Chloride Flush 0.9% 10 Ml Syringe) 10 ml IVP PRN PRN PRN Reason: NEEDED PER PROVIDER ORDERS Last Admin: 05/04/21 09:24 Dose: 10 ml Documented by: Sodium Chloride (Sodium Chloride Flush 0.9% 10 Ml Syringe) 10 ml IVP 0100,0900,1700 GIGI Last Admin: 05/04/21 09:16 Dose: Not Given Documented by: Throat Lozenges (Benzocaine/Menthol Lozenge) 1 lozenge MM Q2HR PRN PRN Reason: Mouth Sore Pain Last Admin: 04/30/21 14:21 Dose: 1 lozenge Documented by: Apixaban [Eliquis] 2.5 mg PO BID 04/30/21 Cholecalciferol [Vitamin D3] 25 mcg PO DAILY 04/30/21 Digoxin [Lanoxin] 125 mcg PO DAILY 04/30/21 QUEtiapine [SEROquel] 25 mg PO QPM 04/30/21
--- NOTE | 2021-05-04 13:07 | PROVIDER PROGRESS NOTE ---
Subjective - General Admit Date: 04/29/21 Procedure Date: 04/30/21 Post Op Days: 4 Procedure Performed: Ex lap, lysis of adhesions - Review of Systems Wound/Incisions: positive: Healing well, No drainage General: positive: Other Gastrointestinal: positive: Abdominal pain (Mild. No BM yet.). negative: Nausea, Vomiting Objective - Patient Data Vital Signs: Vital Signs x48h Temp Pulse Resp BP Pulse Ox 05/04/21 07:30 37.3 C 94 19 134/77 H 90 L Intake & Output: Intake and Output Totals x24h 05/02/21 05/03/21 05/04/21 23:59 23:59 23:59 Intake Total 2871 1855 2200.845 Output Total 8139 198 7451 Balance 1821 1005 1075.845 - Lab Results Lab Results: 05/04/21 06:30 05/04/21 06:30 Other Lab Results: Lab Results x24hrs 05/04/21 05/04/21 05/04/21 Range/Units 06:30 06:30 06:30 WBC (4.8-10.8) x10^3/uL RBC (4.20-5.40) 10^6/uL Hgb (12.0-16.0) g/dL Hct (37.0-47.0) % MCV (81.0-99.0) fL MCH (27.0-31.0) pg MCHC (32.0-36.0) g/dL RDW (12.0-15.0) % Plt Count (130-450) 10^3/uL MPV (7.9-10.8) fL Neut # (Auto) (1.5-6.6) 10^3/uL Lymph # (Auto) (1.5-3.5) 10^3/uL [place] # (Auto) (0.0-1.0) 10^3/uL Eos # (Auto) (0.0-0.7) 10^3/uL Baso # (Auto) (0.0-0.1) 10^3/uL Absolute Nucleated RBC x10^3/uL Nucleated RBC % /100WBC Sodium 140 (135-145) mmol/L Potassium 3.2 L (3.5-5.0) mmol/L Chloride 107 (101-111) mmol/L Carbon Dioxide 23 (21-32) mmol/L Anion Gap 10.0 (6-13) BUN 10 (6-20) mg/dL Creatinine 0.8 (0.4-1.0) mg/dL Estimated GFR (MDRD) 68 L (>89) Glucose 121 H (70-100) mg/dL Calcium 8.0 L (8.5-10.3) mg/dL Phosphorus 1.6 L (2.5-4.6) mg/dL Troponin I High Sens 24.8 H* (2.3-14.8) ng/L Ref Lab Test Result 05/04/21 05/03/21 Range/Units 06:30 08:34 WBC 4.9 (4.8-10.8) x10^3/uL RBC 4.61 (4.20-5.40) 10^6/uL Hgb 14.4 (12.0-16.0) g/dL Hct 44.7 (37.0-47.0) % MCV 97.0 (81.0-99.0) fL MCH 31.2 H (27.0-31.0) pg MCHC 32.2 (32.0-36.0) g/dL RDW 13.3 (12.0-15.0) % Plt Count 177 (130-450) 10^3/uL MPV 10.4 (7.9-10.8) fL Neut # (Auto) 3.8 (1.5-6.6) 10^3/uL Lymph # (Auto) 0.6 L (1.5-3.5) 10^3/uL [place] # (Auto) 0.4 (0.0-1.0) 10^3/uL Eos # (Auto) 0.0 (0.0-0.7) 10^3/uL Baso # (Auto) 0.0 (0.0-0.1) 10^3/uL Absolute Nucleated RBC 0.00 x10^3/uL Nucleated RBC % 0.0 /100WBC Sodium (135-145) mmol/L Potassium (3.5-5.0) mmol/L Chloride (101-111) mmol/L Carbon Dioxide (21-32) mmol/L Anion Gap (6-13) BUN (6-20) mg/dL Creatinine (0.4-1.0) mg/dL Estimated GFR (MDRD) (>89) Glucose (70-100) mg/dL Calcium (8.5-10.3) mg/dL Phosphorus (2.5-4.6) mg/dL Troponin I High Sens (2.3-14.8) ng/L Ref Lab Test Result REPORT - Imaging Results Imaging Results Comments: Improving sbo - Current Medications Current Medications: Current Medications Generic Name Dose Route Start Last Admin Trade Name Freq PRN Reason Stop Dose Admin Bisacodyl 10 mg 05/03/21 16:00 05/04/21 09:25 Bisacodyl 10 Mg Supp [place] 10 mg DAILY GIGI Administration Acetaminophen 100 mls @ 400 mls/hr 05/01/21 14:59 05/04/21 08:05 Ofirmev IV Infused Q6HR PRN Infusion PAIN Ceftriaxone Sodium 1 gm/ 100 mls @ 200 mls/hr 05/03/21 17:48 05/04/21 11:15 Sodium Chloride IV Infused DAILY GIGI Infusion Azithromycin 500 mg/ Sodium 250 mls @ 250 mls/hr 05/04/21 09:00 05/04/21 10:40 Chloride IV 05/06/21 09:59 Infused DAILY GIGI Infusion Lorazepam 0.5 mg 05/01/21 10:56 05/03/21 22:58 Lorazepam 2 Mg/Ml Vial IVP 0.5 mg Q8H PRN Administration Anxiety Metoclopramide HCl 5 mg 05/03/21 16:00 05/04/21 06:10 Metoclopramide 10 Mg/2 Ml Vial IVP 5 mg Q8HR GIGI Administration Morphine Sulfate 2 mg 05/01/21 10:56 05/03/21 04:24 Morphine 2 Mg/Ml Carpuject IVP 2 mg Q8HR PRN Administration Pain 8 to 10 Ondansetron HCl 4 mg 04/29/21 20:08 05/04/21 09:24 Ondansetron 4 Mg/2 Ml Vial IVP 4 mg Q6HR PRN Administration Nausea / Vomiting Pantoprazole Sodium 40 mg 05/02/21 07:00 05/04/21 06:08 Pantoprazole 40 Mg Vial IVP 40 mg QDAC GIGI Administration Phenol/Menthol 2 sprays 04/30/21 02:01 04/30/21 02:46 Phenol Throat [place] 177 Ml MM 2 sprays Q2HR PRN Administration Throat Pain Saccharomyces Boulardii 250 mg 05/04/21 08:00 05/04/21 07:54 Saccharomyces Boulardii 250 Mg Capsule PO 250 mg BIDWM GIGI Administration Sodium Chloride 10 ml 04/29/21 20:08 05/04/21 09:24 Sodium Chloride Flush 0.9% 10 Ml Syringe IVP 10 ml PRN PRN Administration NEEDED PER PROVIDER ORDERS Sodium Chloride 10 ml 04/30/21 01:00 05/04/21 09:16 Sodium Chloride Flush 0.9% 10 Ml Syringe IVP Not Given 0100,0900,1700 GIGI Throat Lozenges 1 lozenge 04/29/21 22:10 04/30/21 14:21 Benzocaine/Menthol Lozenge MM 1 lozenge Q2HR PRN Administration Mouth Sore Pain - Physical Exam Wound/Incisions: positive: Healing well, No drainage General Appearance: positive: No acute distress, Alert (Much more clear than yesterday) Eyes Bilateral: positive: Normal inspection, PERRL, EOMI ENT: positive: No signs of dehydration Respiratory: positive: Chest non-tender, No respiratory distress Cardiovascular: positive: Regular rate & rhythm Abdomen: positive: Nml bowel sounds, No distention Skin: positive: Color nml ABX Reporting Has patient been on IV antibiotics over the past 48 hours?: No Impression/Plan - Problem List Problem List: Small bowel obstruction s/p laparotomy with lysis of adhesions followed by post operative ileus. Advance to soft mechanical diet. If she continues to do well and tolerates diet advancement, could consider discharge in the AM from a surgical perspective.
[2021-05-04] MEDS: NEUTRA-PHOS 250 MG TABLET PO SCH (21:22)
[2021-05-04] MEDS: APIXABAN 2.5 MG TABLET PO SCH (21:22)
[2021-05-05] MEDS: SODIUM CHLORIDE FLUSH 0.9% 10 ML SYRINGE IVP SCH ×3 (00:17→17:57)
[2021-05-05] MEDS: ONDANSETRON 4 MG/2 ML VIAL IVP PRN ×2 (00:22→12:15)
[2021-05-05] MEDS: SODIUM CHLORIDE FLUSH 0.9% 10 ML SYRINGE IVP PRN ×3 (00:22→12:15)
[2021-05-05 05:24] LABS: BILIRUBIN,URINE NEGATIVE (NEGATIVE); CLARITY,URINE CLEAR (CLEAR); GLUCOSE, URINE (UA) NEGATIVE (NEGATIVE); KETONES,URINE (UA) 15 mg/dL (NEGATIVE); LEUKOCYTE ESTERASE, URINE NEGATIVE (NEGATIVE); NITRITE,URINE NEGATIVE (NEGATIVE); OCCULT BLOOD,URINE MODERATE (NEGATIVE); PROTEIN,URINE NEGATIVE (NEGATIVE); UROBILINOGEN,URINE 1 (NORMAL) E.U./dL (NORMAL); WBC,URINE 0-3 /HPF (0-5)
[2021-05-05 05:25] LABS: BACTERIA,URINE Rare /HPF (None Seen); SQUAMOUS EPITHELIAL CELL,UR MOD Squamous (<= Few)
[2021-05-05] MEDS: METOCLOPRAMIDE 10 MG/2 ML VIAL IVP SCH ×3 (06:14→22:46)
[2021-05-05] MEDS: PANTOPRAZOLE 40 MG VIAL IVP SCH (06:15)
[2021-05-05 06:29] LABS: BASOPHILS % (AUTO) 0.6 %; EOSINOPHILS # (AUTO) 0.1 10^3/uL (0.0-0.7); EOSINOPHILS % (AUTO) 1.9 %; HCT - HEMATOCRIT 42.1 % (37.0-47.0); HGB - HEMOGLOBIN 13.9 g/dL (12.0-16.0); LYMPHOCYTES % (AUTO) 19.8 %; MEAN CORPUSCULAR HEMOGLOBIN 31.4 pg (27.0-31.0); MEAN CORPUSCULAR VOLUME 95.2 fL (81.0-99.0); MEAN PLATELET VOLUME 10.3 fL (7.9-10.8); MONOCYTES # (AUTO) 0.4 10^3/uL (0.0-1.0); MONOCYTES % (AUTO) 8.9 %; NEUTROPHILS # (AUTO) 3.2 10^3/uL (1.5-6.6); NEUTROPHILS % (AUTO) 66.9 %; PLT - PLATELET COUNT 186 10^3/uL (130-450); RED BLOOD COUNT 4.42 10^6/uL (4.20-5.40); RED CELL DISTRIBUTION WIDTH 13.3 % (12.0-15.0); WHITE BLOOD COUNT 4.8 x10^3/uL (4.8-10.8)
[2021-05-05 07:11] LABS: CALCIUM 7.9 mg/dL (8.5-10.3); CREATININE 0.8 mg/dL (0.4-1.0); PHOSPHORUS 2.7 mg/dL (2.5-4.6); POTASSIUM 3.4 mmol/L (3.5-5.0)
[2021-05-05] MEDS ORDERED: POTASSIUM CHLORIDE 20 MEQ TABLET PO ONE (07:42)
[2021-05-05] MEDS: cefTRIAXone 1 GM in SODIUM CHLORIDE 0.9% MINIBAG 100 ML IV SCH (08:35)
[2021-05-05] MEDS: BISACODYL 10 MG SUPP PR SCH (08:47)
[2021-05-05] MEDS: NEUTRA-PHOS 250 MG TABLET PO SCH ×3 (08:47→17:57)
[2021-05-05] MEDS: APIXABAN 2.5 MG TABLET PO SCH ×2 (08:47→20:03)
[2021-05-05] MEDS: SACCHAROMYCES BOULARDII 250 MG CAPSULE PO SCH ×2 (08:47→17:57)
[2021-05-05] MEDS: AZITHROMYCIN INJ 500 MG in SODIUM CHLORIDE 0.9% 250 ML IV SCH (09:24)
[2021-05-05] MEDS: ACETAMINOPHEN 1,000 MG/100 ML 100 ML IV PRN (10:37)
--- NOTE | 2021-05-05 10:53 | XRAY Report ---
PROCEDURE: Chest 1 View X-Ray INDICATIONS: sob TECHNIQUE: One view of the chest was acquired. COMPARISON: 05/03/2021 FINDINGS: Surgical changes and devices: None. Lungs and pleura: No pneumothorax. Probable small bilateral pleural effusions. Bibasilar consolidat kendall opacities are grossly unchanged. No definite new focal consolidation. Mediastinum: Mediastinal contours appear normal. Heart size is normal. Bones and chest wall: No suspicious bony lesions. Overlying soft tissues appear unremarkable. IMPRESSION: Small bilateral pleural effusions and bilateral lower lobe consolidative opacities which are grossly unchanged since 05/03/2021. Reviewed by: Kb Resendiz MD on 05/05/2021 10:52 AM PDT Approved by: Kb Resendiz MD on 05/05/2021 10:52 AM PDT Station ID: [id number]
--- NOTE | 2021-05-05 13:38 | PROVIDER PROGRESS NOTE ---
Assessment/Plan - Problem List (1) Pneumonia Assessment/Plan: 05/05 improved. pt only required one liter of O2 by NC to support. pt has no more fever, blood culture Is negative for bacteremia. repeat CXR reveals stable consolidation bilateral, with small pleural effusion. plan: continue antibiotics, supplement of O2 as needed, probiotics, encourage pt ambulate, add once PO lasix 20mg Patient has low degree fever, blood cultures are pending. chest x-ray show right lower lobe possible pneumonia, patient required oxygen supplement. add incentive spirometer, antibiotics, probiotics. encourage pt walk safely with nurse. (2) Small bowel obstruction Assessment/Plan: 05/05 pt seem tolerate diet and she had multiple bowel movement now. pt is likely resolving this issue. 05/04 improved. pt had a small bowel movement on yesterday and today. Patient tolerated clear diet. followup with surgeon's recommendation She underwent open lysis of adhesions yesterday, today is s/p #3. Patient is still not passed gas and bowel movement yet. But the patient had active bowel sounds. Clinically patient did not present pneumonia symptoms, Patient had slightly elevated temperature to 38. But the patient did not show shortness breathing or cough or wheezy. Chest x-ray is ordered show possible pneumonia and left lower pleural effusion. Patient need 4 liter of oxygen to support now. We will order blood culture, Continue close monitor patient's respiratory status, we may start with antibiotics if worsen. thank surgery's followup, start with Reglan, and started with clear diet on tomorrow. Continue and encourage patient walk as tolerated. (3) Atrial fibrillation Assessment/Plan: 05/05 pt's HR is controlled, the test of digoxin serum concentration is sent out, continue Metoprolol PRN to control of HR, continue home Eliquis anticoagulation 05/04 Patient's heart rate is controlled. digoxin is hold now because Serum concentration is 3.2. We will continue to monitor digoxin serum concentration. Continue Metoprolol intravenous PRN. Switch Lovenox to home medication Eliquis. The rate is controlled. Continue intravenous digoxin, metoprolol as needed, Check digoxin serum concentration. Patient is on Lovenox twice daily for atrial fibrillation. We may start with Eliquis on tomorrow after the patient begin p.o. medication (4) CKD (chronic kidney disease) Assessment/Plan: Stable creatinine. Continue with IV fluids while she is NPO Avoid nephrotoxins. Follow BMP daily (5) Dementia with behavioral disturbance Assessment/Plan: confused, but Stable likely as pt's baseline - Current Meds Current Meds: Current Medications Generic Name Dose Route Start Last Admin Trade Name Freq PRN Reason Stop Dose Admin Apixaban 2.5 mg 05/04/21 21:00 05/05/21 08:47 Apixaban 2.5 Mg Tablet PO 2.5 mg BID GIGI Administration Bisacodyl 10 mg 05/03/21 16:00 05/05/21 08:47 Bisacodyl 10 Mg Supp HI Not Given DAILY GIGI Ceftriaxone Sodium 1 gm/ 100 mls @ 200 mls/hr 05/03/21 17:48 05/05/21 09:22 Sodium Chloride IV 05/07/21 17:47 Infused DAILY GIGI Infusion Azithromycin 500 mg/ Sodium 250 mls @ 250 mls/hr 05/04/21 09:00 05/05/21 1 0:37 Chloride IV 05/06/21 09:59 Infused DAILY GIGI Infusion Lorazepam 0.5 mg 05/01/21 10:56 05/03/21 22:58 Lorazepam 2 Mg/Ml Vial IVP 0.5 mg Q8H PRN Administration Anxiety Metoclopramide HCl 5 mg 05/03/21 16:00 05/05/21 06:14 Metoclopramide 10 Mg/2 Ml Vial IVP 5 mg Q8HR GIGI Administration Morphine Sulfate 2 mg 05/01/21 10:56 05/03/21 04:24 Morphine 2 Mg/Ml Carpuject IVP 2 mg Q8HR PRN Administration Pain 8 to 10 Ondansetron HCl 4 mg 04/29/21 20:08 05/05/21 12:15 Ondansetron 4 Mg/2 Ml Vial IVP 4 mg Q6HR PRN Administration Nausea / Vomiting Pantoprazole Sodium 40 mg 05/02/21 07:00 05/05/21 06:15 Pantoprazole 40 Mg Vial IVP 40 mg QDAC GIGI Administration Phenol/Menthol 2 sprays 04/30/21 02:01 04/30/21 02:46 Phenol Throat [place] 177 Ml MM 2 sprays Q2HR PRN Administration Throat Pain Saccharomyces Boulardii 250 mg 05/04/21 08:00 05/05/21 08:47 Saccharomyces Boulardii 250 Mg Capsule PO 250 mg BIDWM GIGI Administration Sodium Chloride 10 ml 04/29/21 20:08 05/05/21 12:15 Sodium Chloride Flush 0.9% 10 Ml Syringe IVP 10 ml PRN PRN Administration NEEDED PER PROVIDER ORDERS Sodium Chloride 10 ml 04/30/21 01:00 05/05/21 08:35 Sodium Chloride Flush 0.9% 10 Ml Syringe IVP 10 ml 0100,0900,1700 GIGI Administration Sodium Phosphate 250 mg 05/04/21 19:00 05/05/21 12:11 Neutra-Phos 250 Mg Tablet PO 250 mg TIDWM GIGI Administration Throat Lozenges 1 lozenge 04/29/21 22:10 04/30/21 14:21 Benzocaine/Menthol Lozenge MM 1 lozenge Q2HR PRN Administration Mouth Sore Pain - Lab Result Fish Bone Diagrams: 05/05/21 06:10 05/05/21 06:10 - Additional Planning My Orders: My Active Orders 05/04/21 12:55 Out of bed 3+ hours today [RC] TID 05/04/21 19:00 Neutra-Phos [K-Phos Neutral] 250 mg PO TIDWM 05/04/21 21:00 Apixaban [Eliquis] 2.5 mg PO BID 05/05/21 06:10 MISC TEST QUEST REFRIG [REFLAB] Routine 05/05/21 12:15 Acetaminophen [Tylenol] 500 mg PO Q4HR PRN 05/06/21 05:00 BMP - BASIC METABOLIC PANEL [CHEM] DAILYLAB CBC - COMP BLD CT W/AUTO DIFF [HEME] DAILYLAB PHOSPHORUS [CHEM] DAILYLAB 05/07/21 05:00 BMP - BASIC METABOLIC PANEL [CHEM] DAILYLAB CBC - COMP BLD CT W/AUTO DIFF [HEME] DAILYLAB PHOSPHORUS [CHEM] DAILYLAB 05/08/21 05:00 BMP - BASIC METABOLIC PANEL [CHEM] DAILYLAB CBC - COMP BLD CT W/AUTO DIFF [HEME] DAILYLAB PHOSPHORUS [CHEM] DAILYLAB 05/09/21 05:00 BMP - BASIC METABOLIC PANEL [CHEM] DAILYLAB CBC - COMP BLD CT W/AUTO DIFF [HEME] DAILYLAB Subjective - Subjective Patient Reports: Feeling Better Objective Vital Signs: Vital Signs - 24 hr 05/04/21 05/05/21 05/05/21 16:00 00:21 08:25 Temperature 36.4 C L 36.7 C 37.6 C Heart Rate [ 92 92 91 Brachial] Respiratory 20 18 18 Rate Blood Pressure 117/81 H 148/74 H [Left Brachial] Blood Pressure 126/82 H [Right Brachial artery] O2 Saturation 95 95 93 Oxygen O2 Source Nasal cannula I&O (Last 24 Hrs): Intake and Output Totals x24h 05/03/21 05/04/21 05/05/21 23:59 23:59 23:59 Intake Total 1855 3015.345 570 Output Total 850 1125 300 Balance 1005 1890.345 270 General: Alert, Cooperative, No acute distress HEENT: Atraumatic Neck: Supple Lymphatic: no adenopathy Neuro: Alert, Non Focal Cardiovascular: Regular rate, Normal S1, Normal S2 Respiratory: Chest non-tender, No respiratory distress Abdomen: Normal bowel sounds, Soft Extremities: Normal pulses - Results Results: Laboratory Results WBC 4.8 x10^3/uL (4.8-10.8) 05/05/21 06:10 RBC 4.42 10^6/uL (4.20-5.40) 05/05/21 06:10 Hgb 13.9 g/dL (12.0-16.0) 05/05/21 06:10 Hct 42.1 % (37.0-47.0) 05/05/21 06:10 MCV 95.2 fL (81.0-99.0) 05/05/21 06:10 MCH 31.4 pg (27.0-31.0) H 05/05/21 06:10 MCHC 33.0 g/dL (32.0-36.0) 05/05/21 06:10 RDW 13.3 % (12.0-15.0) 05/05/21 06:10 Plt Count 186 10^3/uL (130-450) 05/05/21 06:10 MPV 10.3 fL (7.9-10.8) 05/05/21 06:10 Neut # (Auto) 3.2 10^3/uL (1.5-6.6) 05/05/21 06:10 Lymph # (Auto) 1.0 10^3/uL (1.5-3.5) L 05/05/21 06:10 [place] # (Auto) 0.4 10^3/uL (0.0-1.0) 05/05/21 06:10 Eos # (Auto) 0.1 10^3/uL (0.0-0.7) 05/05/21 06:10 Baso # (Auto) 0.0 10^3/uL (0.0-0.1) 05/05/21 06:10 Absolute Nucleated RBC 0.00 x10^3/uL 05/05/21 06:10 Total Counted 100 04/30/21 05:30 Band Neuts % (Manual) 1 % (0-10) 04/30/21 05:30 Abnorm Lymph % (Manual) 0 % 04/30/21 05:30 Nucleated RBC % 0.0 /100WBC 05/05/21 06:10 Neutrophils # (Manual) 5.9 10^3/uL (1.5-6.6) 04/30/21 05:30 Lymphocytes # (Manual) 0.6 10^3/uL (1.5-3.5) L 04/30/21 05:30 Monocytes # (Manual) 0.7 10^3/uL (0.0-1.0) 04/30/21 05:30 Eosinophils # (Manual) 0.0 10^3/uL (0-0.7) 04/30/21 05:30 Basophils # (Manual) 0.0 10^3/uL (0-0.1) 04/30/21 05:30 Differential Comment MANUAL DIFFERENTIAL 04/30/21 05:30 WBC Morphology NORMAL APPEARANCE (NORMAL) 04/30/21 05:30 Platelet Estimate NORMAL (130-450,000) (NORMAL) 04/30/21 05:30 Platelet Morphology NORMAL APPEARANCE (NORMAL) 04/30/21 05:30 RBC Morph Micro Appear NORMAL APPEARANCE (NORMAL) 04/30/21 05:30 PT 14.5 secs (9.9-12.6) H 04/29/21 20:30 INR 1.3 (0.8-1.2) H 04/29/21 20:30 Sodium 136 mmol/L (135-145) 05/05/21 06:10 Potassium 3.4 mmol/L (3.5-5.0) L 05/05/21 06:10 Chloride 103 mmol/L (101-111) 05/05/21 06:10 Carbon Dioxide 24 mmol/L (21-32) 05/05/21 06:10 Anion Gap 9.0 (6-13) 05/05/21 06:10 BUN 10 mg/dL (6-20) 05/05/21 06:10 Creatinine 0.8 mg/dL (0.4-1.0) 05/05/21 06:10 Estimated GFR (MDRD) 68 (>89) L 05/05/21 06:10 Glucose 94 mg/dL (70-100) 05/05/21 06:10 Lactic Acid 1.5 mmol/L (0.5-2.2) 04/29/21 20:30 Calcium 7.9 mg/dL (8.5-10.3) L 05/05/21 06:10 Phosphorus 2.7 mg/dL (2.5-4.6) 05/05/21 06:10 Magnesium 2.2 mg/dL (1.7-2.8) 05/02/21 10:39 Total Bilirubin 1.5 mg/dL (0.2-1.0) H 04/29/21 16:23 AST 29 IU/L (10-42) 04/29/21 16:23 ALT 20 IU/L (10-60) 04/29/21 16:23 Alkaline Phosphatase 74 IU/L (42-121) 04/29/21 16:23 Troponin I High Sens 24.8 ng/L (2.3-14.8) H* 05/04/21 06:30 Total Protein 8.3 g/dL (6.7-8.2) H 04/29/21 16:23 Albumin 5.2 g/dL (3.2-5.5) 04/29/21 16:23 Globulin 3.1 g/dL (2.1-4.2) 04/29/21 16:23 Albumin/Globulin Ratio 1.7 (1.0-2.2) 04/29/21 16:23 Lipase 29 U/L (22-51) 04/29/21 16:23 Urine Color YELLOW 05/05/21 04:40 Urine Clarity CLEAR (CLEAR) 05/05/21 04:40 Urine pH 7.0 PH (5.0-7.5) 05/05/21 04:40 Ur Specific [place] 1.015 (1.002-1.030) 05/05/21 04:40 Urine Protein NEGATIVE mg/dL (NEGATIVE) 05/05/21 04:40 Urine Glucose (UA) NEGATIVE mg/dL (NEGATIVE) 05/05/21 04:40 Urine Ketones 15 mg/dL (NEGATIVE) H 05/05/21 04:40 Urine Occult Blood MODERATE (NEGATIVE) H 05/05/21 04:40 Urine Nitrite NEGATIVE (NEGATIVE) 05/05/21 04:40 Urine Bilirubin NEGATIVE (NEGATIVE) 05/05/21 04:40 Urine Urobilinogen 1 (NORMAL) E.U./dL (NORMAL) 05/05/21 04:40 Ur Leukocyte Esterase NEGATIVE (NEGATIVE) 05/05/21 04:40 Urine RBC 6-10 /HPF (0-5) H 05/05/21 04:40 Urine WBC 0-3 /HPF (0-5) 05/05/21 04:40 Ur Squamous Epith Cells MOD Squamous (<= Few) H 05/05/21 04:40 Urine Bacteria Rare /HPF (None Seen) 05/05/21 04:40 Urine Culture Comments NOT INDICATED 05/05/21 04:40 Nasal Adenovirus (PCR) NOT DETECTED 04/29/21 17:11 Nasal B. parapertussis DNA (PCR) NOT DETECTED 04/29/21 17:11 Nasal Coronavir 229E PCR NOT DETECTED 04/29/21 17:11 Nasal Coronavir HKU1 PCR NOT DETECTED 04/29/21 17:11 Nasal Coronavir NL63 PCR NOT DETECTED 04/29/21 17:11 Nasal Coronavir OC43 PCR NOT DETECTED 04/29/21 17:11 Nasal Enterovir/Rhinovir PCR NOT DETECTED 04/29/21 17:11 Nasal Influenza B PCR NOT DETECTED 04/29/21 17:11 Nasal Influenza A PCR NOT DETECTED 04/29/21 17:11 Nasal Parainfluen 1 PCR NOT DETECTED 04/29/21 17:11 Nasal Parainfluen 2 PCR NOT DETECTED 04/29/21 17:11 Nasal Parainfluen 3 PCR NOT DETECTED 04/29/21 17:11 Nasal Parainfluen 4 PCR NOT DETECTED 04/29/21 17:11 Nasal RSV (PCR) NOT DETECTED 04/29/21 17:11 Nasal B.pertussis DNA PCR NOT DETECTED 04/29/21 17:11 Nasal C.pneumoniae (PCR) NOT DETECTED 04/29/21 17:11 [place] Human Metapneumo PCR NOT DETECTED 04/29/21 17:11 Nasal M.pneumoniae (PCR) NOT DETECTED 04/29/21 17:11 Nasal SARS-CoV-2 (PCR) NOT DETECTED 04/29/21 17:11 Ref Lab Test Result REPORT 05/03/21 08:34 ABX Reporting Has patient been on IV antibiotics over the past 48 hours?: Yes Current Medications - Current Medications Current Medications: Active Medications Acetaminophen (Acetaminophen 500 Mg Tablet) 500 mg PO Q4HR PRN PRN Reason: Pain or Fever > 38C (100.4F) Apixaban (Apixaban 2.5 Mg Tablet) 2.5 mg PO BID [facility] Last Admin: 05/05/21 08:47 Dose: 2.5 mg Documented by: Bisacodyl (Bisacodyl 10 Mg Supp) 10 mg HI DAILY GIGI Last Admin: 05/05/21 08:47 Dose: Not Given Documented by: Furosemide (Furosemide 20 Mg Tablet) 20 mg PO ONCE GIGI Stop: 05/05/21 14:10 Last Admin: 05/05/21 13:53 Dose: 20 mg Documented by: Ceftriaxone Sodium 1 gm/ (Sodium Chloride) 100 mls @ 200 mls/hr IV DAILY GIGI Stop: 05/07/21 17:47 Last Infusion: 05/05/21 09:22 Dose: Infused Documented by: Azithromycin 500 mg/ Sodium (Chloride) 250 mls @ 250 mls/hr IV DAILY GIGI Stop: 05/06/21 09:59 Last Infusion: 05/05/21 10:37 Dose: Infused Documented by: Lorazepam (Lorazepam 2 Mg/Ml Vial) 0.5 mg IVP Q8H PRN PRN Reason: Anxiety Last Admin: 05/03/21 22:58 Dose: 0.5 mg Documented by: Metoclopramide HCl (Metoclopramide 10 Mg/2 Ml Vial) 5 mg IVP Q8HR GIGI Last Admin: 05/05/21 13:37 Dose: 5 mg Documented by: Metoprolol Tartrate (Metoprolol 5 Mg/5 Ml Vial) 2.5 mg IVP Q6HR PRN PRN Reason: PER PHYSICIAN ORDER Morphine Sulfate (Morphine 2 Mg/Ml Carpuject) 2 mg IVP Q8HR PRN PRN Reason: Pain 8 to 10 Last Admin: 05/03/21 04:24 Dose: 2 mg Documented by: Ondansetron HCl (Ondansetron 4 Mg/2 Ml Vial) 4 mg IVP Q6HR PRN PRN Reason: Nausea / Vomiting Last Admin: 05/05/21 12:15 Dose: 4 mg Documented by: Pantoprazole Sodium (Pantoprazole 40 Mg Vial) 40 mg IVP QDAC [facility] Last Admin: 05/05/21 06:15 Dose: 40 mg Documented by: Phenol/Menthol (Phenol Throat [place] 177 Ml) 2 sprays MM Q2HR PRN PRN Reason: Throat Pain Last Admin: 04/30/21 02:46 Dose: 2 sprays Documented by: Saccharomyces Boulardii (Saccharomyces Boulardii 250 Mg Capsule) 250 mg PO BIDWM [facility] Last Admin: 05/05/21 08:47 Dose: 250 mg Documented by: Sodium Chloride (Sodium Chloride Flush 0.9% 10 Ml Syringe) 10 ml IVP PRN PRN PRN Reason: NEEDED PER PROVIDER ORDERS Last Admin: 05/05/21 12:15 Dose: 10 ml Documented by: Sodium Chloride (Sodium Chloride Flush 0.9% 10 Ml Syringe) 10 ml IVP 0100,0900,1700 [facility] Last Admin: 05/05/21 08:35 Dose: 10 ml Documented by: Sodium Phosphate (Neutra-Phos 250 Mg Tablet) 250 mg PO TIDWM [facility] Last Admin: 05/05/21 12:11 Dose: 250 mg Documented by: Throat Lozenges (Benzocaine/Menthol Lozenge) 1 lozenge MM Q2HR PRN PRN Reason: Mouth Sore Pain Last Admin: 04/30/21 14:21 Dose: 1 lozenge Documented by: Apixaban [Eliquis] 2.5 mg PO BID 04/30/21 Cholecalciferol [Vitamin D3] 25 mcg PO DAILY 04/30/21 Digoxin [Lanoxin] 125 mcg PO DAILY 04/30/21 QUEtiapine [SEROquel] 25 mg PO QPM 04/30/21
--- NOTE | 2021-05-05 13:59 | PROVIDER PROGRESS NOTE ---
Subjective - General Admit Date: 04/29/21 Procedure Date: 04/30/21 Post Op Days: 5 Procedure Performed: Ex lap, lysis of adhesions - Review of Systems Wound/Incisions: positive: Healing well, No drainage General: positive: Weakness, Fatigue, Other Gastrointestinal: positive: Abdominal pain (Mild. No BM yet.). negative: Nausea, Vomiting - Other Other Information/Narrative: No complaints today but only wants to eat ice cream. Encouraged her that it was important to try the soup and sandwich as well. Denies any pain . No nausea. Objective - Patient Data Reviewed Vital Signs: Yes Vital Signs: Vital Signs x48h Temp Pulse Resp BP Pulse Ox 05/05/21 08:25 37.6 C 91 18 126/82 H 93 Intake & Output: Intake and Output Totals x24h 05/03/21 05/04/21 05/05/21 23:59 23:59 23:59 Intake Total 1855 3015.345 810 Output Total 850 1125 300 Balance 1005 1890.345 510 - Lab Results Lab Results: 05/05/21 06:10 05/05/21 06:10 Other Lab Results: Lab Results x24hrs 05/05/21 05/05/21 05/05/21 Range/Units 06:10 06:10 04:40 WBC 4.8 (4.8-10.8) x10^3/uL RBC 4.42 (4.20-5.40) 10^6/uL Hgb 13.9 (12.0-16.0) g/dL Hct 42.1 (37.0-47.0) % MCV 95.2 (81.0-99.0) fL MCH 31.4 H (27.0-31.0) pg MCHC 33.0 (32.0-36.0) g/dL RDW 13.3 (12.0-15.0) % Plt Count 186 (130-450) 10^3/uL MPV 10.3 (7.9-10.8) fL Neut # (Auto) 3.2 (1.5-6.6) 10^3/uL Lymph # (Auto) 1.0 L (1.5-3.5) 10^3/uL [place] # (Auto) 0.4 (0.0-1.0) 10^3/uL Eos # (Auto) 0.1 (0.0-0.7) 10^3/uL Baso # (Auto) 0.0 (0.0-0.1) 10^3/uL Absolute Nucleated RBC 0.00 x10^3/uL Nucleated RBC % 0.0 /100WBC Sodium 136 (135-145) mmol/L Potassium 3.4 L (3.5-5.0) mmol/L Chloride 103 (101-111) mmol/L Carbon Dioxide 24 (21-32) mmol/L Anion Gap 9.0 (6-13) BUN 10 (6-20) mg/dL Creatinine 0.8 (0.4-1.0) mg/dL Estimated GFR (MDRD) 68 L (>89) Glucose 94 (70-100) mg/dL Calcium 7.9 L (8.5-10.3) mg/dL Phosphorus 2.7 (2.5-4.6) mg/dL Urine Color YELLOW Urine Clarity CLEAR (CLEAR) Urine pH 7.0 (5.0-7.5) PH Ur Specific [place] 1.015 (1.002-1.030) Urine Protein NEGATIVE (NEGATIVE) mg/dL Urine Glucose (UA) NEGATIVE (NEGATIVE) mg/dL Urine Ketones 15 H (NEGATIVE) mg/dL Urine Occult Blood MODERATE H (NEGATIVE) Urine Nitrite NEGATIVE (NEGATIVE) Urine Bilirubin NEGATIVE (NEGATIVE) Urine Urobilinogen 1 (NORMAL) (NORMAL) E.U./dL Ur Leukocyte Esterase NEGATIVE (NEGATIVE) Urine RBC 6-10 H (0-5) /HPF Urine WBC 0-3 (0-5) /HPF Ur Squamous Epith Cells MOD Squamous H (<= Few) Urine Bacteria Rare (None Seen) /HPF Urine Culture Comments NOT INDICATED - Current Medications Current Medications: Current Medications Generic Name Dose Route Start Last Admin Trade Name Freq PRN Reason Stop Dose Admin Apixaban 2.5 mg 05/04/21 21:00 05/05/21 08:47 Apixaban 2.5 Mg Tablet PO 2.5 mg BID GIGI Administration Bisacodyl 10 mg 05/03/21 16:00 05/05/21 08:47 Bisacodyl 10 Mg Supp PA Not Given DAILY GIGI Furosemide 20 mg 05/05/21 14:00 05/05/21 13:53 Furosemide 20 Mg Tablet PO 05/05/21 14:10 20 mg ONCE GIGI Administration Ceftriaxone Sodium 1 gm/ 100 mls @ 200 mls/hr 05/03/21 17:48 05/05/21 09:22 Sodium Chloride IV 05/07/21 17:47 Infused DAILY GIGI Infusion Azithromycin 500 mg/ Sodium 250 mls @ 250 mls/hr 05/04/21 09:00 05/05/21 10:37 Chloride IV 05/06/21 09:59 Infused DAILY GIGI Infusion Lorazepam 0.5 mg 05/01/21 10:56 05/03/21 22:58 Lorazepam 2 Mg/Ml Vial IVP 0.5 mg Q8H PRN Administration Anxiety Metoclopramide HCl 5 mg 05/03/21 16:00 05/05/21 13:37 Metoclopramide 10 Mg/2 Ml Vial IVP 5 mg Q8HR GIGI Administration Morphine Sulfate 2 mg 05/01/21 10:56 05/03/21 04:24 Morphine 2 Mg/Ml Carpuject IVP 2 mg Q8HR PRN Administration Pain 8 to 10 Ondansetron HCl 4 mg 04/29/21 20:08 05/05/21 12:15 Ondansetron 4 Mg/2 Ml Vial IVP 4 mg Q6HR PRN Administration Nausea / Vomiting Pantoprazole Sodium 40 mg 05/02/21 07:00 05/05/21 06:15 Pantoprazole 40 Mg Vial IVP 40 mg QDAC GIGI Administration Phenol/Menthol 2 sprays 04/30/21 02:01 04/30/21 02:46 Phenol Throat [place] 177 Ml MM 2 sprays Q2HR PRN Administration Throat Pain Saccharomyces Boulardii 250 mg 05/04/21 08:00 05/05/21 08:47 Saccharomyces Boulardii 250 Mg Capsule PO 250 mg BIDWM GIGI Administration Sodium Chloride 10 ml 04/29/21 20:08 05/05/21 12:15 Sodium Chloride Flush 0.9% 10 Ml Syringe IVP 10 ml PRN PRN Administration NEEDED PER PROVIDER ORDERS Sodium Chloride 10 ml 04/30/21 01:00 05/05/21 08:35 Sodium Chloride Flush 0.9% 10 Ml Syringe IVP 10 ml 0100,0900,1700 GIGI Administration Sodium Phosphate 250 mg 05/04/21 19:00 05/05/21 12:11 Neutra-Phos 250 Mg Tablet PO 250 mg TIDWM GIGI Administration Throat Lozenges 1 lozenge 04/29/21 22:10 04/30/21 14:21 Benzocaine/Menthol Lozenge MM 1 lozenge Q2HR PRN Administration Mouth Sore Pain - Physical Exam Wound/Incisions: positive: Healing well General Appearance: positive: No acute distress Eyes Bilateral: positive: Normal inspection Abdomen: positive: Nml bowel sounds, Tenderness (Very minimal) Impression/Plan - Problem List Problem List: Small bowel obstruction has resolved. Encourage po and ambulation as is already being accomplished. In agreement with the Hospitalist service and she is apropriate for discharge when they are comfortable with her other medical challenges.
[2021-05-05] MEDS ORDERED: FUROSEMIDE 20 MG TABLET PO SCH (14:00)
[2021-05-05 14:41] LABS: B. PARAPERTUSSIS- RESP PCR PAN NOT DETECTED; B. PERTUSSIS- RESP PCR PANEL NOT DETECTED; C. PNEUMONIAE- RESP PCR PANEL NOT DETECTED; CORONAVIRUS 229E-RESP PCR NOT DETECTED; CORONAVIRUS HKU1-RESP PCR NOT DETECTED; CORONAVIRUS NL63-RESP PCR NOT DETECTED; CORONAVIRUS OC43-RESP PCR NOT DETECTED; HUMAN METAPNEUMOVIRUS NOT DETECTED; INFLUENZA A- RESP PCR PANEL NOT DETECTED; INFLUENZA B - RESP PCR PANEL NOT DETECTED; M. PNEUMONIAE- RESP PCR PANEL NOT DETECTED; PARAINFLUENZA VIRUS 1 NOT DETECTED; PARAINFLUENZA VIRUS 2 NOT DETECTED; PARAINFLUENZA VIRUS 3 NOT DETECTED; PARAINFLUENZA VIRUS 4 NOT DETECTED; RHINOVIRUS/ENTEROVIRUS NOT DETECTED; RSV- RESP PCR PANEL NOT DETECTED; SARS-CoV-2 -RESP PCR PANEL NOT DETECTED
[2021-05-05] MEDS: ACETAMINOPHEN 500 MG TABLET PO PRN (20:03)
[2021-05-06] MEDS: ACETAMINOPHEN 500 MG TABLET PO PRN ×2 (02:26→06:10)
[2021-05-06] MEDS: SODIUM CHLORIDE FLUSH 0.9% 10 ML SYRINGE IVP SCH ×2 (02:32→13:14)
[2021-05-06] MEDS: METOCLOPRAMIDE 10 MG/2 ML VIAL IVP SCH (06:02)
[2021-05-06] MEDS: PANTOPRAZOLE 40 MG VIAL IVP SCH (06:02)
[2021-05-06] MEDS: SODIUM CHLORIDE FLUSH 0.9% 10 ML SYRINGE IVP PRN ×2 (06:02→06:09)
[2021-05-06 06:29] LABS: BASOPHILS % (AUTO) 0.4 %; EOSINOPHILS # (AUTO) 0.2 10^3/uL (0.0-0.7); EOSINOPHILS % (AUTO) 3.1 %; HCT - HEMATOCRIT 42.1 % (37.0-47.0); HGB - HEMOGLOBIN 13.5 g/dL (12.0-16.0); LYMPHOCYTES # (AUTO) 1.1 10^3/uL (1.5-3.5); LYMPHOCYTES % (AUTO) 23.1 %; MEAN CORPUSCULAR HEMOGLOBIN 30.4 pg (27.0-31.0); MEAN CORPUSCULAR HGB CONC 32.1 g/dL (32.0-36.0); MEAN CORPUSCULAR VOLUME 94.8 fL (81.0-99.0); MEAN PLATELET VOLUME 10.6 fL (7.9-10.8); MONOCYTES # (AUTO) 0.4 10^3/uL (0.0-1.0); MONOCYTES % (AUTO) 9.2 %; NEUTROPHILS % (AUTO) 61.9 %; PLT - PLATELET COUNT 204 10^3/uL (130-450); RED BLOOD COUNT 4.44 10^6/uL (4.20-5.40); RED CELL DISTRIBUTION WIDTH 13.2 % (12.0-15.0); WHITE BLOOD COUNT 4.8 x10^3/uL (4.8-10.8)
[2021-05-06 06:40] LABS: CALCIUM 8.3 mg/dL (8.5-10.3); CREATININE 0.7 mg/dL (0.4-1.0); PHOSPHORUS 3.4 mg/dL (2.5-4.6); POTASSIUM 3.2 mmol/L (3.5-5.0)
[2021-05-06] MEDS ORDERED: POTASSIUM CHLOR 10 MEQ/100 ML 10 MEQ/100 ML BAG IV ONE (07:53)
[2021-05-06] MEDS ORDERED: POTASSIUM CHLORIDE 20 MEQ TABLET PO ONE (07:53)
[2021-05-06] MEDS ORDERED: FUROSEMIDE 20 MG TABLET PO SCH (08:00)
--- NOTE | 2021-05-06 08:28 | PROVIDER PROGRESS NOTE ---
Subjective - General Admit Date: 04/29/21 Procedure Date: 04/30/21 Post Op Days: 6 Procedure Performed: Ex lap, lysis of adhesions - Review of Systems Wound/Incisions: positive: Healing well General: positive: Weakness, Fatigue, Other Gastrointestinal: positive: Abdominal pain (Mild. No BM yet.). negative: Nausea, Vomiting All Other Systems: positive: Reviewed and negative - Other Other Information/Narrative: Sitting up at the bedside eating breakfast. Complains that abdomen feels "so re". Having small bowel movements and passing flatus. She denies any nausea Objective - Patient Data Intake & Output: Intake and Output Totals x24h 05/04/21 05/05/21 05/06/21 23:59 23:59 23:59 Intake Total 3015.345 1230 Output Total 1125 700 450 Balance 1890.345 530 -450 - Lab Results Lab Results: 05/06/21 05:58 05/06/21 05:58 Other Lab Results: Lab Results x24hrs 05/06/21 05/06/21 05/05/21 Range/Units 05:58 05:58 13:40 WBC 4.8 (4.8-10.8) x10^3/uL RBC 4.44 (4.20-5.40) 10^6/uL Hgb 13.5 (12.0-16.0) g/dL Hct 42.1 (37.0-47.0) % MCV 94.8 (81.0-99.0) fL MCH 30.4 (27.0-31.0) pg MCHC 32.1 (32.0-36.0) g/dL RDW 13.2 (12.0-15.0) % Plt Count 204 (130-450) 10^3/uL MPV 10.6 (7.9-10.8) fL Neut # (Auto) 3.0 (1.5-6.6) 10^3/uL Lymph # (Auto) 1.1 L (1.5-3.5) 10^3/uL [place] # (Auto) 0.4 (0.0-1.0) 10^3/uL Eos # (Auto) 0.2 (0.0-0.7) 10^3/uL Baso # (Auto) 0.0 (0.0-0.1) 10^3/uL Absolute Nucleated RBC 0.00 x10^3/uL Nucleated RBC % 0.0 /100WBC Sodium 135 (135-145) mmol/L Potassium 3.2 L (3.5-5.0) mmol/L Chloride 98 L (101-111) mmol/L Carbon Dioxide 25 (21-32) mmol/L Anion Gap 12.0 (6-13) BUN 9 (6-20) mg/dL Creatinine 0.7 (0.4-1.0) mg/dL Estimated GFR (MDRD) 80 L (>89) Glucose 99 (70-100) mg/dL Calcium 8.3 L (8.5-10.3) mg/dL Phosphorus 3.4 (2.5-4.6) mg/dL Nasal Adenovirus (PCR) NOT DETECTED Nasal B. parapertussis DNA (PCR) NOT DETECTED Nasal Coronavir 229E PCR NOT DETECTED Nasal Coronavir HKU1 PCR NOT DETECTED Nasal Coronavir NL63 PCR NOT DETECTED Nasal Coronavir OC43 PCR NOT DETECTED Nasal Enterovir/Rhinovir PCR NOT DETECTED Nasal Influenza B PCR NOT DETECTED Nasal Influenza A PCR NOT DETECTED Nasal Parainfluen 1 PCR NOT DETECTED Nasal Parainfluen 2 PCR NOT DETECTED Nasal Parainfluen 3 PCR NOT DETECTED Nasal Parainfluen 4 PCR NOT DETECTED Nasal RSV (PCR) NOT DETECTED Nasal B.pertussis DNA PCR NOT DETECTED Nasal C.pneumoniae (PCR) NOT DETECTED Mason Human Metapneumo PCR NOT DETECTED Nasal M.pneumoniae (PCR) NOT DETECTED Nasal SARS-CoV-2 (PCR) NOT DETECTED Ref Lab Test Result 05/05/21 Range/Units 06:10 WBC (4.8-10.8) x10^3/uL RBC (4.20-5.40) 10^6/uL Hgb (12.0-16.0) g/dL Hct (37.0-47.0) % MCV (81.0-99.0) fL MCH (27.0-31.0) pg MCHC (32.0-36.0) g/dL RDW (12.0-15.0) % Plt Count (130-450) 10^3/uL MPV (7.9-10.8) fL Neut # (Auto) (1.5-6.6) 10^3/uL Lymph # (Auto) (1.5-3.5) 10^3/uL [place] # (Auto) (0.0-1.0) 10^3/uL Eos # (Auto) (0.0-0.7) 10^3/uL Baso # (Auto) (0.0-0.1) 10^3/uL Absolute Nucleated RBC x10^3/uL Nucleated RBC % /100WBC Sodium (135-145) mmol/L Potassium (3.5-5.0) mmol/L Chloride (101-111) mmol/L Carbon Dioxide (21-32) mmol/L Anion Gap (6-13) BUN (6-20) mg/dL Creatinine (0.4-1.0) mg/dL Estimated GFR (MDRD) (>89) Glucose (70-100) mg/dL Calcium (8.5-10.3) mg/dL Phosphorus (2.5-4.6) mg/dL Nasal Adenovirus (PCR) Nasal B. parapertussis DNA (PCR) Nasal Coronavir 229E PCR Nasal Coronavir HKU1 PCR Nasal Coronavir NL63 PCR Nasal Coronavir OC43 PCR Nasal Enterovir/Rhinovir PCR Nasal Influenza B PCR Nasal Influenza A PCR Nasal Parainfluen 1 PCR Nasal Parainfluen 2 PCR Nasal Parainfluen 3 PCR Nasal Parainfluen 4 PCR Nasal RSV (PCR) Nasal B.pertussis DNA PCR Nasal C.pneumoniae (PCR) Mason Human Metapneumo PCR Nasal M.pneumoniae (PCR) Nasal SARS-CoV-2 (PCR) Ref Lab Test Result REPORT - Current Medications Current Medications: Current Medications Generic Name Dose Route Start Last Admin Trade Name Freq PRN Reason Stop Dose Admin Acetaminophen 500 mg 05/05/21 12:15 05/06/21 06:10 Acetaminophen 500 Mg Tablet PO 500 mg Q4HR PRN Administration Pain or Fever > 38C (100.4F) Apixaban 2.5 mg 05/04/21 21:00 05/05/21 20:03 Apixaban 2.5 Mg Tablet PO 2.5 mg BID GIGI Administration Bisacodyl 10 mg 05/03/21 16:00 05/05/21 08:47 Bisacodyl 10 Mg Supp TN Not Given DAILY GIGI Ceftriaxone Sodium 1 gm/ 100 mls @ 200 mls/hr 05/03/21 17:48 05/05/21 09:22 Sodium Chloride IV 05/07/21 17:47 Infused DAILY GIGI Infusion Azithromycin 500 mg/ Sodium 250 mls @ 250 mls/hr 05/04/21 09:00 05/05/21 10:37 Chloride IV 05/06/21 09:59 Infused DAILY GIGI Infusion Lorazepam 0.5 mg 05/01/21 10:56 05/03/21 22:58 Lorazepam 2 Mg/Ml Vial IVP 0.5 mg Q8H PRN Administration Anxiety Metoclopramide HCl 5 mg 05/03/21 16:00 05/06/21 06:02 Metoclopramide 10 Mg/2 Ml Vial IVP 5 mg Q8HR GIGI Administration Morphine Sulfate 2 mg 05/01/21 10:56 05/03/21 04:24 Morphine 2 Mg/Ml Carpuject IVP 2 mg Q8HR PRN Administration Pain 8 to 10 Ondansetron HCl 4 mg 04/29/21 20:08 05/05/21 12:15 Ondansetron 4 Mg/2 Ml Vial IVP 4 mg Q6HR PRN Administration Nausea / Vomiting Pantoprazole Sodium 40 mg 05/02/21 07:00 05/06/21 06:02 Pantoprazole 40 Mg Vial IVP 40 mg QDAC GIGI Administration Phenol/Menthol 2 sprays 04/30/21 02:01 04/30/21 02:46 Phenol Throat [place] 177 Ml MM 2 sprays Q2HR PRN Administration Throat Pain Saccharomyces Boulardii 250 mg 05/04/21 08:00 05/05/21 17:57 Saccharomyces Boulardii 250 Mg Capsule PO 250 mg BIDWM GIGI Administration Sodium Chloride 10 ml 04/29/21 20:08 05/06/21 06:09 Sodium Chloride Flush 0.9% 10 Ml Syringe IVP 10 ml PRN PRN Administration NEEDED PER PROVIDER ORDERS Sodium Chloride 10 ml 04/30/21 01:00 05/06/21 02:32 Sodium Chloride Flush 0.9% 10 Ml Syringe IVP 10 ml 0100,0900,1700 GIGI Administration Throat Lozenges 1 lozenge 04/29/21 22:10 04/30/21 14:21 Benzocaine/Menthol Lozenge MM 1 lozenge Q2HR PRN Administration Mouth Sore Pain - Physical Exam Wound/Incisions: positive: Healing well General Appearance: positive: No acute distress Impression/Plan - Problem List Problem List: Eating little bits. And symptoms of obstruction have resolved. She may be having incisional pain or this may be cramping from the reglan. I will stop the reglan and see how she does.
[2021-05-06] MEDS: SACCHAROMYCES BOULARDII 250 MG CAPSULE PO SCH (09:17)
[2021-05-06] MEDS: APIXABAN 2.5 MG TABLET PO SCH (09:17)
[2021-05-06] MEDS ORDERED: AZITHROMYCIN INJ 500 MG in SODIUM CHLORIDE 0.9% 250 ML IV SCH (10:00)
[2021-05-06] MEDS: cefTRIAXone 1 GM in SODIUM CHLORIDE 0.9% MINIBAG 100 ML IV SCH (10:15)
[2021-05-06 10:53] VITALS: BP 158/90
[2021-05-06] MEDS: BISACODYL 10 MG SUPP PR SCH (13:13)
--- NOTE | 2021-05-06 13:25 | XRAY Report ---
PROCEDURE: Abdomen 1 View X-Ray INDICATIONS: abdominal pain, SBO? TECHNIQUE: 2 supine views of the abdomen were acquired. COMPARISON: 05/03/2021, 04/30/2021, CT abdomen pelvis 04/29/2021 FINDINGS: Surgical changes and devices: Multiple surgical leonardo again project over the left paracentral abdom en. Bowel: The bowel gas pattern demonstrates a few mildly distended loops of small and large bowel. Soft tissues: No suspicious abdominal calcifications. Bones: No suspicious bony abnormalities. IMPRESSION: 1. Nonspecific bowel gas pattern with a few mildly distended loops of small and large bowel. The find ings are suggestive of a postsurgical ileus but clinical follow-up is recommended. Reviewed by: Alvaro Walters MD on 05/06/2021 1:24 PM PDT Approved by: Alvaro Walters MD on 05/06/2021 1:24 PM PDT Station ID: [id number]
--- NOTE | 2021-05-06 13:50 | Discharge Plan ---
"Discharge Plan for SNF / ASSISTED - Discharge Plan And Transition Orders Problem Reviewed?: Yes Disposition: 03 SNF DC/Xfer Allergies and Adverse Reactions: Allergies Allergy/AdvReac Type Severity Reaction Status Date / Time Sulfa (Sulfonamide Allergy Nausea Verified 04/29/21 16:18 Antibiotics) Health Concerns: small bowel obstruction, pneumonia Plan of Treatment: you had surgery to resolve the small bowel obstruction problem. You have bowel movement and have diet, had significant improvement. Discussed with surgeon, we will d/c. Please return hospital if your symptoms return or worsen, including abdominal pain, nausea or vomiting and no bowel movement. You are found to have pneumonia, now your symptoms are resolved. you have 98% O2 sat on room air. You have no respiratory distress. You are prescribed another 4 days antibiotics plus probiotics. Care Goals: Stabilization and improvement of your medical conditions Assessment: Discussed the care plan with patient and patient'x daughter at the bedside, answer their questions, they understand - SNF / ASSISTED Transition Orders Admit to (Facility): [facility] Under the care of (Name): Medical provider of [facility] Discharge Diagnosis: SBO, pneumonia, afib, CKD, dementia Medicare Certification Statement: I certify that [facility] long[facility] care is medically necessary on a continuing basis for any of the conditions for which she/he is receiving care during hospitalization. Notify PCP of admission and forward orders to primary provider for signature. Weight on admission and: Daily Call PCP immediately if weight increases by: 2 kg Other Notification Orders: Call PCP immediately if patient develops dyspnea, chest pain/tightness or edema. House Bowel Program: Yes Additional Bowel Program Orders: If no BM after 2 days, nurse may give M.O.M. 30ml PO PRN and/or ducolax Supp 1 MN and/or CHUCKY 250mg P.O., and/or senna 1-2 tabs PO. On day 3 nurse may give repeat above order until residents constipation is resolved. Annual Influenza Vaccine (between Apr 20 and November 17): Yes Two-step PPD per [facility] [phone] or approved exception documents: Yes Treatments & Other Orders: you had surgery to resolve the small bowel obstruction problem. You have bowel movement and have diet, had significant improvement. Discussed with surgeon, we will d/c. Please return hospital if your symptoms return or worsen, including abdominal pain, nausea or vomiting and no bowel movement. You are found to have pneumonia, now your symptoms are resolved. you have 98% O2 sat on room air. You have no respiratory distress. You are prescribed another 4 days antibiotics plus probiotics. Medication Orders: PLEASE REFER TO THE DISCHARGE MEDICATION LIST. Insulin Orders?: No - Medications New Prescriptions: cefUROXime axetiL [Ceftin] 250 mg PO Q12H #8 tablet Saccharomyces Boulardii [Florastor] 250 mg PO DAILY #4 cap Pantoprazole Sodium [Protonix] 20 mg PO DAILY #30 tab - Diet Type: Geriatric Texture: Regular Liquids: Thin May have monthly special meal: Yes - Therapies | Activity Rehabilitation Potential: Maximize functional status Activity: Activity as Tolerated"
--- NOTE | 2021-05-06 13:59 | DISCHARGE SUMMARY ---
"Discharge Summary Admit Date: 04/29/21 Discharge Date: 05/06/21 Discharging Provider: Bon Melton Primary Care Provider: Ana Pacheco Discharge Disposition: 03 SNF DC/Xfer Discharge Facility Name: [facility] - DIAGNOSES Discharge Diagnoses with Status of Each Condition: (1) Pneumonia pt has 98% O2 sats on room air. she has no respiratory distress. she walked with PT without respiratory distress. pt is prescribed antibiotics to finish the humberto atment course. Temperature 38 at 7:20am 05/06/21 was wrong. I checked pt'sTemperature was 36.6 (2) Small bowel obstruction pt had Exploratory laparotomy, lysis of adhesions done by surgeon. Pt surgery, pt had multiple times of bowel movement, pt tolerated food. before d/c pt, I called Dr. Rodarte. Dr. Rodarte suggested pt can be d/c today. pt may followup with surgeon as out-pt. pt has risk of SBO with adhesion again. advise pt return ER or call 911 for help if symptoms return or worsen. (3) Atrial fibrillation stable, pt may resume home meds (4) CKD (chronic kidney disease) stable (5) Dementia with behavioral disturbance stable. - HPI History of Present Illness: refer from Dr. Mai's HPI on 04/29/21 The patient is an 85-year-old white female with past medical history of Alzheimer's dementia and atrial fibrillation. She resides at [facility] a [facility] facility. She has history of small bowel obstructions, 4 episodes in the past, first time she required surgery, subsequently, the other 3 times, she was treated conservatively. Other than abdominal surgery for small bowel obstruction, she does not have past surgical history except for remote skin grafts. She was in her usual state of health, ate breakfast as usual on the morning of April 29. Around noon time, however she developed several episodes of nausea, vomiting and lower quadrant diffuse abdominal discomfort. Other than this she could not provide history, notably she has advanced dementia and even basic symptoms are hard for her to remember, most of the history provided by her daughter. Daughter also reports that the patient has advancing dementia and sometimes gets agitated, however Seroquel helped in the past. Atrial fibrillation is controlled on digoxin and patient is therapeutically anticoagulated on Eliquis. - CONSULTS | PROCEDURES Consultations: Procedures: Exploratory laparotomy, lysis of adhesions - ALLERGIES Allergies/Adverse Reactions: Allergies Allergy/AdvReac Type Severity Reaction Status Date / Time Sulfa (Sulfonamide Allergy Nausea Verified 04/29/21 16:18 Antibiotics) - MEDICATIONS Home Medications: Ambulatory Orders Medication Instructions Recorded Confirmed Apixaban [Eliquis] 2.5 mg PO BID 04/30/21 04/30/21 Cholecalciferol [Vitamin D3] 25 mcg PO DAILY 04/30/21 04/30/21 Digoxin [Lanoxin] 125 mcg PO DAILY 04/30/21 04/30/21 QUEtiapine [SEROquel] 25 mg PO QPM 04/30/21 04/30/21 Pantoprazole Sodium [Protonix] 20 mg PO DAILY #30 tab 05/06/21 Saccharomyces Boulardii [Florastor] 250 mg PO DAILY #4 cap 05/06/21 cefUROXime axetiL [Ceftin] 250 mg PO Q12H #8 tablet 05/06/21 - PHYSICAL EXAM AT DISCHARGE General Appearance: positive: No acute distress, Alert. negative: Lethargic Eyes Bilateral: positive: Normal inspection, No lid inflammation ENT: positive: ENT inspection nml, No signs of dehydration. negative: Purulent nasal drainage Neck: positive: Nml inspection, Trachea midline. negative: Thyromegaly, Tracheal deviation Respiratory: positive: Chest non-tender, No respiratory distress. negative: Wheezes Cardiovascular: positive: Regular rate & rhythm, No murmur. negative: Tachycardia, Bradycardia, Systolic murmur, Diastolic murmur Peripheral Pulses: positive: 2+ Abdomen: positive: Non-tender, Nml bowel sounds, No distention. negative: Tenderness Back: positive: Nml inspection Skin: positive: Color nml, Warm, Dry. negative: Cyanosis Extremities: positive: Non-tender, Full ROM, Nml appearance. negative: Pedal edema, Calf tenderness Neurologic/Psychiatric: positive: Sensation nml. negative: Weakness, Sensory loss, Facial droop, Slurred/abnml speech, Depressed mood/affect - LABS Result Diagrams: 05/06/21 05:58 05/06/21 05:58 - FOLLOW UP Follow Up: you had surgery to resolve the small bowel obstruction problem. You have bowel movement and have diet, had significant improvement. Discussed with surgeon, we will d/c. Please return hospital if your symptoms return or worsen, including abdominal pain, nausea or vomiting and no bowel movement. You may followup with your surgeon in 2 weeks or early as needed. You are found to have pneumonia, now your symptoms are resolved. you have 98% O2 sat on room air. You have no respiratory distress. You are prescribed another 4 days antibiotics plus probiotics. - TIME SPENT Time Spent in Discharge (Minutes): 30"
== END 2021-05-06 14:35 | DRG 335 ==
LOC: EDUNIT# → ED 16:04 → MS2 20:08
PROVIDERS: ADMIT Internal Medicine; ATTEND Nurse Practitioner Gerontology
PROC: 0DNL0ZZ Release Transverse Colon, Open Approach (ICD-10-PCS; principal; 2021-04-29)
PROC: 0DN80ZZ Release Small Intestine, Open Approach (ICD-10-PCS; 2021-04-29)
DX: K56.609 Unspecified intestinal obstruction, unspecified as to partial versus complete obstruction (principal); Z87.19 Personal history of other diseases of the digestive system; Z20.822 Contact with and (suspected) exposure to COVID-19; K56.52 Intestinal adhesions [bands] with complete obstruction; J18.9 Pneumonia, unspecified organism; F02.81 Dementia in other diseases classified elsewhere, unspecified severity, with behavioral disturbance; I48.20 Chronic atrial fibrillation, unspecified; Y95 Nosocomial condition; K56.7 Ileus, unspecified; G30.9 Alzheimer's disease, unspecified; N18.30 Chronic kidney disease, stage 3 unspecified; I34.0 Nonrheumatic mitral (valve) insufficiency; I34.1 Nonrheumatic mitral (valve) prolapse; M81.0 Age-related osteoporosis without current pathological fracture; Z79.01 Long term (current) use of anticoagulants; Z79.899 Other long term (current) drug therapy; Z98.890 Other specified postprocedural states; Z74.09 Other reduced mobility
CPT/HCPCS: 36415; 71045; 74018; 74019; 74177; 74250; 80048; 80053; 81001; 81599; 83605; 83690; 83735; 84100; 84484; 85025; 85610; 87040; 87631; 93005; 96374; 96375; 97161; 99283; 99285; A9270; J0131; J1170; J1650; J2060; J2765; J7120; Q9963; Q9967; 0202U; 80162; 87086

== ENCOUNTER 2021-05-26 19:35 | Outpatient (CLI) | payer MEDICARE, OTHER | END 2021-05-26 19:36 | disposition EMS.NT | LOC: EMS 19:35 | DX: R00.2 Palpitations (principal) ==

== ENCOUNTER 2021-07-05 08:00 | Outpatient (CLI) | payer MEDICARE, OTHER ==
[2021-07-05 18:48] LABS: DIGOXIN 0.5 ng/mL
== END 2021-07-05 23:59 | disposition home or self-care (01) ==
LOC: LAB.WCP 08:00
PROVIDERS: ATTEND Nurse Practitioner Gerontology
DX: I50.9 Heart failure, unspecified (principal); Z51.81 Encounter for therapeutic drug level monitoring
CPT/HCPCS: 36415; 80162

== ENCOUNTER 2021-07-19 21:57 | Outpatient (CLI) | payer MEDICARE, OTHER | END 2021-07-19 21:58 | disposition critical access hospital (66) | LOC: EMS 21:57 | DX: R10.9 Unspecified abdominal pain (principal); M54.9 Dorsalgia, unspecified; R07.9 Chest pain, unspecified; R06.00 Dyspnea, unspecified; F41.9 Anxiety disorder, unspecified | CPT/HCPCS: A0425; A0427 ==

== ENCOUNTER 2021-07-19 22:16 | Inpatient (IN) | payer MEDICARE, OTHER ==
[2021-07-19 22:58] LABS: BASOPHILS % (AUTO) 0.5 %; EOSINOPHILS % (AUTO) 0.5 %; HCT - HEMATOCRIT 42.8 % (37.0-47.0); HGB - HEMOGLOBIN 14.2 g/dL (12.0-16.0); LYMPHOCYTES # (AUTO) 0.9 10^3/uL (1.5-3.5); LYMPHOCYTES % (AUTO) 11.9 %; MEAN CORPUSCULAR HEMOGLOBIN 31.4 pg (27.0-31.0); MEAN CORPUSCULAR HGB CONC 33.2 g/dL (32.0-36.0); MEAN CORPUSCULAR VOLUME 94.7 fL (81.0-99.0); MEAN PLATELET VOLUME 10.1 fL (7.9-10.8); MONOCYTES # (AUTO) 0.4 10^3/uL (0.0-1.0); NEUTROPHILS # (AUTO) 6.3 10^3/uL (1.5-6.6); NEUTROPHILS % (AUTO) 81.8 %; PLT - PLATELET COUNT 222 10^3/uL (130-450); RED BLOOD COUNT 4.52 10^6/uL (4.20-5.40); RED CELL DISTRIBUTION WIDTH 13.2 % (12.0-15.0); WHITE BLOOD COUNT 7.8 x10^3/uL (4.8-10.8)
[2021-07-19 23:07] LABS: ALBUMIN 4.3 g/dL (3.2-5.5); ALBUMIN/GLOBULIN RATIO 1.5 (1.0-2.2); CALCIUM 9.4 mg/dL (8.5-10.3); CREATININE 1.3 mg/dL (0.4-1.0); POTASSIUM 3.9 mmol/L (3.5-5.0); TOTAL PROTEIN 7.1 g/dL (6.7-8.2)
--- NOTE | 2021-07-19 23:30 | XRAY Report ---
PROCEDURE: Chest 1 View X-Ray INDICATIONS: Chest pain TECHNIQUE: One view of the chest was acquired. COMPARISON: 05/05/2021 chest radiograph FINDINGS: Surgical changes and devices: None. Lungs and pleura: Scattered subsegmental scarring/atelectasis. No acute consolidation. No pleural e ffusion or pneumothorax. Mediastinum: Mediastinal contours appear normal. Heart size is normal. Bones and chest wall: No suspicious bony lesions. Overlying soft tissues appear unremarkable. IMPRESSION: Scattered subsegmental scarring/atelectasis. No acute consolidation. Reviewed by: Kb Gonzalez MD on 07/19/2021 11:29 PM PST Approved by: Kb Gonzalez MD on 07/19/2021 11:29 PM PST Station ID: [id number]
--- NOTE | 2021-07-19 23:32 | ED Physician Documentation ---
PD HPI ABD PAIN - Stated complaint Stated Complaint: CP/ABD/BACK PAIN - Chief complaint Chief Complaint: Cardiac - History obtained from History obtained from: Patient, Family - History of Present Illness Timing - onset: Enter time (21:00), Today Timing - details: Abrupt onset Pain level now: 4 Quality: Aching, Pain Location: Epigastric (across upper abdomen but predominantly epigastric) Radiation: Other (radiates to back) Improved by: Other (no ameliorating factors) Worsened by: Palpation Associated symptoms: Nausea, Vomiting. No: Fever, Diarrhea, Constipation Recently seen: Not recently seen - Additional information Additional information: c/o upper abdominal pain since approximately 9 PM tonight, with nausea and vom iting. She has h/o multiple SBO which has sometimes required surgical intervention. She says some of her symptoms tonight are similar to previous SBO but others are not. Review of Systems Constitutional: denies: Fever, Chills, Sweats Ears: reports: Reviewed and negative Nose: reports: Reviewed and negative Throat: reports: Reviewed and negative Cardiac: reports: Reviewed and negative Respiratory: reports: Reviewed and negative GI: reports: Abdominal Pain, Abdominal Swelling, Nausea, Vomiting. denies: Constipation, Diarrhea : denies: Dysuria, Frequency Skin: reports: Reviewed and negative Musculoskeletal: reports: Reviewed and negative Neurologic: reports: Reviewed and negative PD PAST MEDICAL HISTORY - Past Medical History Past Medical History: Yes Cardiovascular: Atrial fibrillation, Valve disorder Respiratory: None Neuro: Dementia Endocrine/Autoimmune: None GI: None : Renal insuffiency Musculoskeletal: Other Derm: None - Past Surgical History Past Surgical History: Yes General: Bowel surgery, Other - Present Medications Home Medications: Ambulatory Orders Medication Instructions Recorded Confirmed Apixaban [Eliquis] 2.5 mg PO BID 04/30/21 04/30/21 Cholecalciferol [Vitamin D3] 25 mcg PO DAILY 04/30/21 04/30/21 Digoxin [Lanoxin] 125 mcg PO DAILY 04/30/21 04/30/21 QUEtiapine [SEROquel] 25 mg PO QPM 04/30/21 04/30/21 Pantoprazole Sodium [Protonix] 20 mg PO DAILY #30 tab 05/06/21 Saccharomyces Boulardii [Florastor] 250 mg PO DAILY #4 cap 05/06/21 cefUROXime axetiL [Ceftin] 250 mg PO Q12H #8 tablet 05/06/21 - Allergies Allergies/Adverse Reactions: Allergies Allergy/AdvReac Type Severity Reaction Status Date / Time Sulfa (Sulfonamide Allergy Nausea Verified 04/29/21 16:18 Antibiotics) - Social History Does the pt smoke?: No Smoking Status: Never smoker Does the pt drink ETOH?: No Does the pt have substance abuse?: No PD ED PE NORMAL - Vitals Vital signs reviewed: Yes - General General: Alert and oriented X 3, No acute distress, Well developed/nourished - HEENT HEENT: Other (pasty mucous membranes) - Neck Neck: Supple, no meningeal sign - Cardiac Cardiac: No murmur - Respiratory Respiratory: No respiratory distress, Clear bilaterally - Abdomen Abdomen: Soft - Back Back: No CVA TTP - Derm Derm: Normal color, Warm and dry - Extremities Extremities: No edema - Neuro Neuro: Alert and oriented X 3 PD ED PE EXPANDED - Cardiac Cardiac: Irregularly irregular - Abdomen Abdomen: Normal Bowel sounds, Tender to palpation (epigastric and LUQ TTP) Results - Vitals Vitals: Vital Signs - 24 hr 07/19/21 07/19/21 07/20/21 22:27 22:30 00:30 Temperature 35.7 C L 35.7 C L Heart Rate 83 83 65 Respiratory 17 17 20 Rate Blood Pressure 123/87 H 123/87 H 121/68 O2 Saturation 100 100 99 Oxygen O2 Source Room air - EKG (time done) No standard instances Rate: Rate (enter#) (83) Rhythm: Atrial fibrillation [place]: LAD, Anterior hemiblock Ischemia: Normal ST segments - Labs Labs: Laboratory Tests 07/19/21 07/19/21 07/19/21 22:41 22:41 22:41 WBC 7.8 RBC 4.52 Hgb 14.2 Hct 42.8 MCV 94.7 MCH 31.4 H MCHC 33.2 RDW 13.2 Plt Count 222 MPV 10.1 Neut # (Auto) 6.3 Lymph # (Auto) 0.9 L Kidder # (Auto) 0.4 Eos # (Auto) 0.0 Baso # (Auto) 0.0 Absolute Nucleated RBC 0.00 Nucleated RBC % 0.0 Sodium 136 Potassium 3.9 Chloride 99 L Carbon Dioxide 22 Anion Gap 15.0 H BUN 24 H Creatinine 1.3 H Estimated GFR (MDRD) 39 L Glucose 161 H Calcium 9.4 Total Bilirubin 1.0 AST 53 H ALT 25 Alkaline Phosphatase 74 Troponin I High Sens 6.3 Total Protein 7.1 Albumin 4.3 Globulin 2.8 Albumin/Globulin Ratio 1.5 Amylase Lipase 2800 H Last Dose Date Last Dose Time Digoxin 07/19/21 07/19/21 23:44 23:44 WBC RBC Hgb Hct MCV MCH MCHC RDW Plt Count MPV Neut # (Auto) Lymph # (Auto) Kidder # (Auto) Eos # (Auto) Baso # (Auto) Absolute Nucleated RBC Nucleated RBC % Sodium Potassium Chloride Carbon Dioxide Anion Gap BUN Creatinine Estimated GFR (MDRD) Glucose Calcium Total Bilirubin AST ALT Alkaline Phosphatase Troponin I High Sens Total Protein Albumin Globulin Albumin/Globulin Ratio Amylase 847 H* Lipase Last Dose Date UNKNOWN Last Dose Time UNKNOWN Digoxin 0.5 - Rads (name of study) chest xray Radiology: Prelim report reviewed, See rad report CT A/P Radiology: Prelim report reviewed, See rad report PD MEDICAL DECISION MAKING - ED course Complexity details: reviewed old records, reviewed results, re-evaluated patient, considered differential, d/w patient, d/w family ED course: c/o abdominal pain across upper abdomen, found to be TTP epigastrium with markedly elevated lipase and elevated amylase. CT A/P has incidental findings. Given the extent of lipase/amylase elevation and symptoms that correlate with pancreatitis, plan is to admit for bowel rest and observation. D/W Dr. Hernández, accepts to hospitalist service Departure - Departure Disposition: 66 [facility] DC/Xfer Clinical Impression: Pancreatitis Condition: Stable Discharge Date/Time: 07/20/21 02:34
[2021-07-19] MEDS ORDERED: SODIUM CHLORIDE 0.9% 1,000 ML IV STA (23:45)
[2021-07-19] MEDS ORDERED: ONDANSETRON 4 MG/2 ML VIAL IVP STA (23:45)
[2021-07-19] MEDS ORDERED: SODIUM CHLORIDE 0.9% 500 ML IV STA (23:45)
[2021-07-19] MEDS ORDERED: IOVERSOL 320 100 ML VIAL IVP ONE (23:59)
[2021-07-20 00:14] LABS: DIGOXIN 0.5 ng/mL
[2021-07-20] MEDS ORDERED: IOVERSOL 320 100 ML VIAL IVP ONE (00:22)
--- NOTE | 2021-07-20 00:47 | CT Report ---
PROCEDURE: Abdomen/Pelvis W INDICATIONS: abd. pain, elevated lipase CONTRAST: IV CONTRAST: Optiray 320 ml: 90 PO CONTRAST: *NO PO CONTRAST TECHNIQUE: After the administration of IV contrast, 5 mm thick sections acquired from the diaphragms to the symp hysis. 5 mm thick coronal and sagittal reformats were acquired. For radiation dose reduction, the f ollowing was used: automated exposure control, adjustment of mA and/or kV according to patient size. COMPARISON: None. FINDINGS: ABDOMEN: Lung bases: No acute findings. Heart: Enlarged Liver: Normal. Gallbladder: Mildly distended appearance of the gallbladder otherwise no wall thickening or radiopaqu e gallstone seen. Bile ducts: Normal. Pancreas: Normal. Spleen: Normal. Adrenals: Normal. Kidneys and ureters: Normal. Stomach and duodenum: Possible mural thickening of the distal stomach/gastric antrum. Bowel: Normal appendix. Moderate stool. No definite transition point or suggestion of bowel obstructi on. Other: No free fluid or air. Abdominal nodes: Normal. Aorta: Normal in size. IVC: Normal. Ventral wall: Ill-defined soft tissue extending from the umbilicus to the anterior abdominal wall whi ch could be inflammatory stranding or scarring. PELVIS: Bladder and reproductive: Bladder unremarkable. Right adnexal cystic lesion measuring 4.2 x 3.4 cm. Pelvic nodes: Normal. Inguinal: No hernia. Bones: No vertebral body compression fracture. No suspicious bone lesion. IMPRESSION: Normal CT appearance of the pancreas although this does not exclude pancreatitis. Recommend correlati on with pancreatic enzymes. Normal appendix Large right adnexal cystic lesion which warrants continued evaluation with pelvic ultrasound, and con tinued surveillance to exclude cystic ovarian neoplasm. Distended gallbladder. Recommend clinical correlation and with LFTs is needed. Mural thickening involving the gastric antrum, raising the possibility of gastritis although technica lly nonspecific. Evaluation suboptimal secondary to nondistended state. Recommend clinical correlatio n and if necessary, upper endoscopy could be performed. Ill-defined soft tissue tract extending from the umbilicus to the anterior abdominal wall raising the possibility of fistula although this could represent bland scarring. Please correlate clinically Reviewed by: Kb Resendiz MD on 07/20/2021 12:46 AM PST Approved by: Kb Resendiz MD on 07/20/2021 12:46 AM PST Station ID: [id number]
[2021-07-20] MEDS ORDERED: oxyCODONE 5 MG TABLET PO PRN (01:57)
[2021-07-20] MEDS ORDERED: MORPHINE 2 MG/ML CARPUJECT IVP PRN (01:57)
[2021-07-20] MEDS ORDERED: SODIUM CHLORIDE FLUSH 0.9% 10 ML SYRINGE IVP PRN (01:57)
[2021-07-20] MEDS ORDERED: ACETAMINOPHEN 325 MG TABLET PO PRN (01:57)
[2021-07-20] MEDS ORDERED: ONDANSETRON 4 MG/2 ML VIAL IVP PRN (01:57)
[2021-07-20] MEDS ORDERED: SODIUM CHLORIDE 0.9% 1,000 ML IV SCH (02:00)
--- NOTE | 2021-07-20 02:07 | HISTORY & PHYSICAL EXAMINATION ---
Chief Complaint - Chief Complaint Chief Complaint: epigastric abdominal pain History of Present Illness - Admitted From Admitted From:: [facility] ED - History Obtained From Records Reviewed: yes History obtained from: patient - History of Present Illness HPI Comment/Other: Patient is an 85-year-old female with medical history significant for Alzheimer's and atrial fibrillation on eliquis. She resides at [facility] and presented to the ED today with epigastric abdominal ache. At time of onset she rated the pain 7 out of 10 but currently denies any pain after administration of pain medication. It was a constant pain. This started in the afternoon. She does not remember what she ate for lunch.She denied nausea or vomiting. She also denied chest pain, dyspnea, fever or chills. In the ED work-up included a lipase level which was 2800 and an amylase level which was 847. CT of the abdomen pelvis was unremarkable. However as a result of elevated/abnormal labs she was presented for admission for further treatment. History - Past Medical History Cardiovascular: reports: Atrial fibrillation, Valve disorder Respiratory: reports: None Neuro: reports: Dementia Endocrine/Autoimmune: reports: None GI: reports: None : reports: Renal insuffiency Musculoskeletal: reports: Other Derm: reports: None MRSA Hx?: No - Past Surgical History General: reports: Bowel surgery, Other - Family & Social History Family History Comment/Other: Patient cannot recall medical history of family members Social History Notes: She resides at [facility]. She gets around using a walker. She requires some assistance but is able to feed and dress herself - POLST Patient has POLST: Yes POLST Status: Full Code Meds/Allgy - Home Medications Home Medications: Ambulatory Orders Medication Instructions Recorded Confirmed Apixaban [Eliquis] 2.5 mg PO BID 04/30/21 04/30/21 Cholecalciferol [Vitamin D3] 25 mcg PO DAILY 04/30/21 04/30/21 Digoxin [Lanoxin] 125 mcg PO DAILY 04/30/21 04/30/21 QUEtiapine [SEROquel] 25 mg PO QPM 04/30/21 04/30/21 Pantoprazole Sodium [Protonix] 20 mg PO DAILY #30 tab 05/06/21 Saccharomyces Boulardii [Florastor] 250 mg PO DAILY #4 cap 05/06/21 cefUROXime axetiL [Ceftin] 250 mg PO Q12H #8 tablet 05/06/21 - Allergies Allergies/Adverse Reactions: Allergies Allergy/AdvReac Type Severity Reaction Status Date / Time Sulfa (Sulfonamide Allergy Nausea Verified 04/29/21 16:18 Antibiotics) Review of Systems - Constitutional Constitutional: denies: Fever, Chills - Eyes Eyes: denies: Pain - Ears, Nose & Throat Ears, Nose & Throat: denies: Sore throat - Cardiovascular Cariovascular: reports: Irregular heart rate. denies: Chest pain, Edema, Lightheadedness, Syncope - Respiratory Respiratory: denies: Cough, Sputum production, Wheezing, SOB at rest, SOB with exertion - Gastrointestinal Gastrointestinal: reports: Abdominal pain. denies: Constipation, Diarrhea, Nausea, Vomiting, Coffee grounds emesis, Reflux/heartburn - Genitourinary Genitourinary: denies: Dysuria, Frequency, Urgency, Hematuria - Musculoskeletal Musculoskeletal: denies: Muscle pain, Back pain, Muscle aches - Integumentary Integumentary: denies: Rash, Pruritis - Neurological Neurological: reports: Memory problems. denies: General weakness - Psychiatric Psychiatric: reports: Depression, Anxiety - Endocrine Endocrine: denies: Polyuria, Polydypsia - Hematologic/Lymphatic Hematologic/Lymphatic: denies: Anemia, Bruising, Petechiae Prior Level of Functionality: She resides at [facility]. She gets around using a walker. She requires some assistance but is able to feed and dress herself Exam - Vital Signs Vital Signs: Vital Signs x48h Temp Pulse Resp BP Pulse Ox 07/20/21 02:00 71 26 H 125/65 97 07/20/21 00:30 65 20 121/68 99 07/19/21 22:30 35.7 C L 83 17 123/87 H 100 07/19/21 22:27 35.7 C L 83 17 123/87 H 100 - Physical Exam General Appearance: positive: Alert, Mild distress Eyes Bilateral: positive: PERRL, EOMI ENT: positive: No signs of dehydration Neck: positive: No JVD, Trachea midline Respiratory: positive: Chest non-tender, No respiratory distress, Breath sounds nml. negative: Wheezes, Rales, Rhonchi Cardiovascular: positive: No murmur, Irregularly irregular Abdomen: positive: Nml bowel sounds, No distention, Tenderness (mild). negative: Guarding, Rebound Back: positive: Nml inspection Skin: positive: Color nml, No rash, Warm, Dry Extremities: positive: Non-tender, Full ROM, Nml appearance, No pedal edema Neurologic/Psychiatric: positive: Mood/affect nml, Other (oriented to self and reason) Conclusion/Plan - Problem List (1) Pancreatitis Conclusion/Plan: Etiology undetermined CT abdomen/pelvis unremarkable Lipase 2800, Amylase 847. Will trend lipase. Check triglycerides IV hydration, pain management prn. Qualifiers: Chronicity: acute Pancreatitis type: unspecified pancreatitis type Acute pancreatitis complication: no infection or necrosis Qualified Code(s): K85.90 - Acute pancreatitis without necrosis or infection, unspecified (2) Atrial fibrillation Conclusion/Plan: Rate controlled On digoxin and Eliquis (3) CKD (chronic kidney disease) Conclusion/Plan: Cr 1.3 with eGFR of 39. IV hydration with NS at 100ml/hr (4) Dementia with behavioral disturbance Conclusion/Plan: On seroquel 25mg po qpm - Lab Results Fish Bones: 07/19/21 22:41 07/19/21 22:41 Core Measures - Anticipated LOS I expect patient to be DC'd or transferred within 96 hours.: Yes - DVT/VTE - Prophylaxis VTE/DVT Device ordered at admit?: Yes VTE/DVT Prophylaxis med ordered at admit?: Yes
[2021-07-20 03:00] LABS: B. PARAPERTUSSIS- RESP PCR PAN NOT DETECTED; B. PERTUSSIS- RESP PCR PANEL NOT DETECTED; C. PNEUMONIAE- RESP PCR PANEL NOT DETECTED; CORONAVIRUS 229E-RESP PCR NOT DETECTED; CORONAVIRUS HKU1-RESP PCR NOT DETECTED; CORONAVIRUS NL63-RESP PCR NOT DETECTED; CORONAVIRUS OC43-RESP PCR NOT DETECTED; HUMAN METAPNEUMOVIRUS NOT DETECTED; INFLUENZA A- RESP PCR PANEL NOT DETECTED; INFLUENZA B - RESP PCR PANEL NOT DETECTED; M. PNEUMONIAE- RESP PCR PANEL NOT DETECTED; PARAINFLUENZA VIRUS 1 NOT DETECTED; PARAINFLUENZA VIRUS 2 NOT DETECTED; PARAINFLUENZA VIRUS 3 NOT DETECTED; PARAINFLUENZA VIRUS 4 NOT DETECTED; RHINOVIRUS/ENTEROVIRUS NOT DETECTED; RSV- RESP PCR PANEL NOT DETECTED; SARS-CoV-2 -RESP PCR PANEL NOT DETECTED
[2021-07-20 06:32] LABS: BASOPHILS % (AUTO) 0.5 %; EOSINOPHILS % (AUTO) 0.2 %; HCT - HEMATOCRIT 41.2 % (37.0-47.0); HGB - HEMOGLOBIN 13.6 g/dL (12.0-16.0); LYMPHOCYTES # (AUTO) 1.2 10^3/uL (1.5-3.5); LYMPHOCYTES % (AUTO) 18.8 %; MEAN CORPUSCULAR HEMOGLOBIN 31.3 pg (27.0-31.0); MEAN CORPUSCULAR VOLUME 94.9 fL (81.0-99.0); MONOCYTES # (AUTO) 0.5 10^3/uL (0.0-1.0); NEUTROPHILS # (AUTO) 4.8 10^3/uL (1.5-6.6); PLT - PLATELET COUNT 203 10^3/uL (130-450); RED BLOOD COUNT 4.34 10^6/uL (4.20-5.40); RED CELL DISTRIBUTION WIDTH 13.3 % (12.0-15.0); WHITE BLOOD COUNT 6.6 x10^3/uL (4.8-10.8)
[2021-07-20 06:49] LABS: CHOL/HDL RATIO 4.3 (<4.4); CHOLESTEROL 203 mg/dL; HDL CHOLESTEROL 47 mg/dL; LDL CHOLESTEROL,CALCULATED 140 mg/dL; TRIGLYCERIDES 81 mg/dL; VLDL CHOLESTEROL 16 mg/dL
[2021-07-20 07:31] LABS: CALCIUM 8.5 mg/dL (8.5-10.3)
[2021-07-20] MEDS ORDERED: ENOXAPARIN 40 MG/0.4 ML SYRINGE SUBQ SCH (09:00)
[2021-07-20] MEDS ORDERED: DIGOXIN 125 MCG TABLET PO SCH ×2 (09:00)
[2021-07-20] MEDS: APIXABAN 2.5 MG TABLET PO SCH ×2 (09:36→20:26)
[2021-07-20] MEDS: SODIUM CHLORIDE FLUSH 0.9% 10 ML SYRINGE IVP SCH ×2 (09:39→17:43)
[2021-07-20] MEDS: SODIUM CHLORIDE 0.9% 1,000 ML IV SCH ×2 (12:38→19:52)
--- NOTE | 2021-07-20 12:46 | PHARMACY PROGRESS NOTE ---
- Best Possible Medication History Admit Date and Time: 07/20/21 0157 Processed by: Pharmacy Medication History completed: Yes Secondary Source(s): Facility MAR as ONLY source As the person ultimately responsible for medication therapy, providers are able to order a medication from an existing home medication list in [facility] via the "Reconcile Routine" prior to Confirmation of that medication by client application support engineer. Such practice is discouraged except when the physician, in their clinical judgment, deems that a medical need exists for a medication without regard to previous use.
[2021-07-20] MEDS ORDERED: QUEtiapine 25 MG TABLET PO SCH (21:00)
[2021-07-21] MEDS: SODIUM CHLORIDE 0.9% 1,000 ML IV SCH (00:12)
[2021-07-21] MEDS: SODIUM CHLORIDE FLUSH 0.9% 10 ML SYRINGE IVP SCH ×2 (00:12→08:38)
[2021-07-21 05:51] LABS: BASOPHILS % (AUTO) 0.6 %; EOSINOPHILS # (AUTO) 0.1 10^3/uL (0.0-0.7); EOSINOPHILS % (AUTO) 1.3 %; HCT - HEMATOCRIT 40.5 % (37.0-47.0); HGB - HEMOGLOBIN 13.3 g/dL (12.0-16.0); LYMPHOCYTES # (AUTO) 1.4 10^3/uL (1.5-3.5); MEAN CORPUSCULAR HEMOGLOBIN 31.1 pg (27.0-31.0); MEAN CORPUSCULAR HGB CONC 32.8 g/dL (32.0-36.0); MEAN CORPUSCULAR VOLUME 94.8 fL (81.0-99.0); MEAN PLATELET VOLUME 10.1 fL (7.9-10.8); MONOCYTES # (AUTO) 0.4 10^3/uL (0.0-1.0); NEUTROPHILS # (AUTO) 2.7 10^3/uL (1.5-6.6); NEUTROPHILS % (AUTO) 57.9 %; PLT - PLATELET COUNT 204 10^3/uL (130-450); RED BLOOD COUNT 4.27 10^6/uL (4.20-5.40); RED CELL DISTRIBUTION WIDTH 13.6 % (12.0-15.0); WHITE BLOOD COUNT 4.7 x10^3/uL (4.8-10.8)
[2021-07-21 06:03] LABS: CALCIUM 8.4 mg/dL (8.5-10.3); CREATININE 0.8 mg/dL (0.4-1.0); POTASSIUM 3.6 mmol/L (3.5-5.0)
[2021-07-21] MEDS ORDERED: ALPRAZolam 0.25 MG TABLET PO PRN (07:44)
[2021-07-21] MEDS ORDERED: DIGOXIN 125 MCG TABLET PO SCH (08:00)
[2021-07-21] MEDS ORDERED: PANTOPRAZOLE 40 MG TABLET PO SCH (08:00)
[2021-07-21] MEDS: APIXABAN 2.5 MG TABLET PO SCH (08:38)
[2021-07-21] MEDS ORDERED: LORATADINE 10 MG TABLET PO SCH (09:00)
[2021-07-21] MEDS ORDERED: SERTRALINE 25 MG TABLET PO SCH (09:00)
--- NOTE | 2021-07-21 11:16 | Discharge Plan ---
"Discharge Plan for SNF / [facility] - Discharge Plan And Transition Orders Problem Reviewed?: Yes Disposition: 01 Home, Self Care Condition: Stable Allergies and Adverse Reactions: Allergies Allergy/AdvReac Type Severity Reaction Status Date / Time Sulfa (Sulfonamide Allergy Nausea Verified 04/29/21 16:18 Antibiotics) Health Concerns: pancreatitis and dehydration Plan of Treatment: you have no abdominal pain and you tolerate regular diet now. Your test show your acute pancreatitis is resolved now. You may followup with GI surgeon if you continue to have problem. You may keep hydration at your nurse facility as well. You are found to have slight elevated cholesterol level, Lipitor 20mg daily is prescribed for you. Care Goals: Stabilization, resolved of your abdominal pain and acute pancreatitis - SNF / [facility] Transition Orders Admit to (Facility): [facility] Under the care of (Name): Medical provider of [facility] Discharge Diagnosis: Pancreatitis, chronic A fibrillation, dehydration, dementia with behavioral disturbance, hyperlipidemia Medicare Certification Statement: I certify that [facility] snf care is medically necessary on a continuing basis for any of the conditions for which she/he is receiving care during hospitalization. Notify PCP of admission and forward orders to primary provider for signature. Weight on admission and: Weekly Call PCP immediately if weight increases by: 2 kg Other Notification Orders: Call PCP immediately if patient develops dyspnea, chest pain/tightness or edema. [place] Bowel Program: Yes Additional Bowel Program Orders: If no BM after 2 days, nurse may give M.O.M. 30ml PO PRN and/or ducolax Supp 1 OK and/or CHUCKY 250mg P.O., and/or senna 1-2 tabs PO. On day 3 nurse may give repeat above order until residents constipation is resolved. Annual Influenza Vaccine (between Apr 20 and November 17): Yes Two-step PPD per [facility] [phone] or approved exception documents: Yes Treatments & Other Orders: you have no abdominal pain and you tolerate regular diet now. Your test show your acute pancreatitis is resolved now. You may followup with GI surgeon if you continue to have problem. You may keep hydration at your nurse facility as well. You are found to have slight elevated cholesterol level, Lipitor 20mg daily is prescribed for you. Medication Orders: PLEASE REFER TO THE DISCHARGE MEDICATION LIST. Insulin Orders?: No - Medications New Prescriptions: Atorvastatin [Lipitor] 20 mg PO QPM #30 tablet - Diet Type: Geriatric Texture: Regular Liquids: Thin May have monthly special meal: Yes - Therapies | Activity Activity: Activity as Tolerated"
--- NOTE | 2021-07-21 11:36 | DISCHARGE SUMMARY ---
Discharge Summary Admit Date: 07/20/21 Discharge Date: 07/21/21 Discharging Provider: Bon Melton Primary Care Provider: Ana Arevalo Condition at Discharge: Stable Discharge Disposition: Home, Self Care Discharge Facility Name: [facility] - DIAGNOSES Discharge Diagnoses with Status of Each Condition: (1) Pancreatitis resolved. pt tolerated regular diet, and pt denies abdominal pain. Lipase and Amylase both are down to normal arrange. CT of abdomen reveals distended gallbladder, pt may followup with GI surgeon to assess her distended gallbladder which could cause her pancreatitis if she has problem again. Today her symptoms are quick resolved with normal arrange of liver enzymes. (2) chronic Atrial fibrillation stable, resume home meds (3) dehydration resolved. keep hydration at nurse facility (4) Dementia with behavioral disturbance stable, resume home meds (5)HLD slight elevated cholesterol level, pt is prescribed lipitor. - HPI History of Present Illness: refer from Dr. Hernández's HPI on 07/20/21 Patient is an 85-year-old female with medical history significant for Alzheimer's and atrial fibrillation on eliquis. She resides at [facility] and presented to the ED today with epigastric abdominal ache. At time of onset she rated the pain 7 out of 10 but currently denies any pain after administration of pain medication. It was a constant pain. This started in the afternoon. She does not remember what she ate for lunch.She denied nausea or vomiting. She also denied chest pain, dyspnea, fever or chills. In the ED work-up included a lipase level which was 2800 and an amylase level which was 847. CT of the abdomen pelvis was unremarkable. However as a result of elevated/abnormal labs she was presented for admission for further treatment. - ALLERGIES Allergies/Adverse Reactions: Allergies Allergy/AdvReac Type Severity Reaction Status Date / Time Sulfa (Sulfonamide Allergy Nausea Verified 04/29/21 16:18 Antibiotics) - MEDICATIONS Home Medications: Ambulatory Orders Medication Instructions Recorded Confirmed Apixaban [Eliquis] 2.5 mg PO BIDWM 04/30/21 07/20/21 Cholecalciferol [Vitamin D3] 25 mcg PO DAILY 04/30/21 07/20/21 Digoxin [Lanoxin] 125 mcg PO SUMOWETHSA 04/30/21 07/20/21 QUEtiapine [SEROquel] 25 mg PO QPM 04/30/21 07/20/21 Acetaminophen [Tylenol] 650 mg PO Q4H PRN 07/20/21 07/20/21 Alprazolam [Xanax] 0.25 mg PO DAILY PRN 07/20/21 07/20/21 Loratadine [Claritin] 10 mg PO DAILY 07/20/21 07/20/21 Pantoprazole Sodium [Protonix] 20 mg PO QDAC 07/20/21 07/20/21 Sertraline [Zoloft] 25 mg PO DAILY 07/20/21 07/20/21 Atorvastatin [Lipitor] 20 mg PO QPM #30 tablet 07/21/21 - PHYSICAL EXAM AT DISCHARGE General Appearance: positive: No acute distress, Alert. negative: Lethargic Eyes Bilateral: positive: Normal inspection, PERRL, No lid inflammation ENT: positive: ENT inspection nml, No signs of dehydration. negative: Purulent nasal drainage Neck: positive: Nml inspection, Trachea midline. negative: Tracheal deviation Respiratory: positive: Chest non-tender, No respiratory distress, Breath sounds nml Cardiovascular: positive: Regular rate & rhythm. negative: Tachycardia, Bradycardia, Systolic murmur Peripheral Pulses: positive: 2+ Abdomen: positive: Non-tender, Nml bowel sounds, No distention. negative: Tenderness Back: positive: Nml inspection Skin: positive: Color nml, Warm, Dry. negative: Cyanosis Extremities: positive: Non-tender, Full ROM, Nml appearance. negative: Pedal edema Neurologic/Psychiatric: positive: Motor nml, Sensation nml. negative: Weakness, Sensory loss, Facial droop, Slurred/abnml speech - LABS Result Diagrams: 07/21/21 05:38 07/21/21 05:38 - FOLLOW UP Follow Up: you have no abdominal pain and you tolerate regular diet now. Your test show your acute pancreatitis is resolved now. You may followup with GI surgeon if you continue to have problem. You may keep hydration at your nurse facility as well. You are found to have slight elevated cholesterol level, Lipitor 20mg daily is prescribed for you. - TIME SPENT Time Spent in Discharge (Minutes): 30
[2021-07-21 15:39] VITALS: BP 134/75
[2021-07-21] MEDS ORDERED: ATORVASTATIN 40 MG TABLET PO SCH (21:00)
== END 2021-07-21 16:15 | disposition home or self-care (01) | DRG 439 ==
LOC: EDUNIT# → SUPCPDRO 22:16 → ED 22:16 → MS2 07-20 01:57
PROVIDERS: ADMIT Internal Medicine; ATTEND Nurse Practitioner Gerontology
DX: K85.90 Acute pancreatitis without necrosis or infection, unspecified (principal); I48.91 Unspecified atrial fibrillation; I48.20 Chronic atrial fibrillation, unspecified; F03.90 Unspecified dementia, unspecified severity, without behavioral disturbance, psychotic disturbance, mood disturbance, and anxiety; Z20.822 Contact with and (suspected) exposure to COVID-19; F02.81 Dementia in other diseases classified elsewhere, unspecified severity, with behavioral disturbance; Z79.01 Long term (current) use of anticoagulants; G30.9 Alzheimer's disease, unspecified; E86.0 Dehydration; E78.5 Hyperlipidemia, unspecified; N18.9 Chronic kidney disease, unspecified
CPT/HCPCS: 36415; 71045; 74177; 80048; 80053; 80061; 80162; 82150; 83690; 84484; 85025; 87631; 93005; 96374; 99284; 99285; A9270; Q9967; 0202U; 83721

== ENCOUNTER 2022-09-21 17:32 | Outpatient (CLI) | payer MEDICARE, OTHER | END 2022-09-21 17:33 | disposition critical access hospital (66) | LOC: EMS 17:32 | DX: R21 Rash and other nonspecific skin eruption (principal) | CPT/HCPCS: A0425; A0427 ==

== ENCOUNTER 2022-09-21 17:53 | Emergency (ER) | payer MEDICARE, OTHER ==
[2022-09-21] MEDS ORDERED: FAMOTIDINE 20 MG TABLET PO STA (18:00)
[2022-09-21] MEDS ORDERED: predniSONE 20 MG TABLET PO STA (18:00)
--- NOTE | 2022-09-21 18:00 | ED Physician Documentation ---
PD HPI SKIN - Stated complaint Stated Complaint: RASH - History obtained from History obtained from: Patient, EMS - Additional information Additional information: Patient presents via EMS from a care facility after they noticed that she had a rash on her feet, legs also somewhat on her torso and upper extremities. It was noticed this afternoon. The patient is complaining of itching but no pain. No other symptoms including no fevers or chills, no cough or URI symptoms, no chest pain or difficulty breathing. No new medications or soaps lotions detergents or other irritant contacts. EMS gave the patient 25 mg of Benadryl without relief in symptoms.History somewhat limited as patient does have dementia though is able to answer some questions appropriately. Later after discussion with her daughter, it sounds as though the patient has been on antibiotics recently, was on a course of Augmentin Prescribed on 11 September and then it appears on the it was either changed to Keflex if she was also given Keflex, for a UTI. Review of Systems Constitutional: reports: Reviewed and negative Cardiac: reports: Reviewed and negative Respiratory: reports: Reviewed and negative GI: reports: Reviewed and negative : reports: Reviewed and negative Skin: reports: Rash Musculoskeletal: reports: Reviewed and negative Neurologic: reports: Reviewed and negative PD PAST MEDICAL HISTORY - Past Medical History Past Medical History: Yes Cardiovascular: Atrial fibrillation, Valve disorder Respiratory: None Neuro: Dementia Endocrine/Autoimmune: None GI: None : Renal insuffiency Musculoskeletal: Other Derm: None - Past Surgical History Past Surgical History: Yes General: Bowel surgery, Other - Present Medications Home Medications: Ambulatory Orders Medication Instructions Recorded Confirmed Apixaban [Eliquis] 2.5 mg PO BIDWM 04/30/21 07/20/21 Cholecalciferol [Vitamin D3] 25 mcg PO DAILY 04/30/21 07/20/21 Digoxin [Lanoxin] 125 mcg PO SUMOWETHSA 04/30/21 07/20/21 QUEtiapine [SEROquel] 25 mg PO QPM 04/30/21 07/20/21 Acetaminophen [Tylenol] 650 mg PO Q4H PRN 07/20/21 07/20/21 Alprazolam [Xanax] 0.25 mg PO DAILY PRN 07/20/21 07/20/21 Loratadine [Claritin] 10 mg PO DAILY 07/20/21 07/20/21 Pantoprazole Sodium [Protonix] 20 mg PO QDAC 07/20/21 07/20/21 Sertraline [Zoloft] 25 mg PO DAILY 07/20/21 07/20/21 Atorvastatin [Lipitor] 20 mg PO QPM #30 tablet 07/21/21 Cetirizine [ZyrTEC] 10 mg PO DAILY #10 tablet 09/21/22 Famotidine [Pepcid AC] 10 mg PO BID #20 tablet 09/21/22 - Allergies Allergies/Adverse Reactions: Allergies Allergy/AdvReac Type Severity Reaction Status Date / Time Sulfa (Sulfonamide Allergy Nausea Verified 04/29/21 16:18 Antibiotics) - Social History Does the pt smoke?: No Smoking Status: Never smoker Does the pt drink ETOH?: No Does the pt have substance abuse?: No - POLST Patient has POLST: Yes POLST Status: Full Code PD ED PE NORMAL - Vitals Vital signs reviewed: Yes - General General: Alert and oriented X 3, No acute distress, Well developed/nourished - HEENT HEENT: Atraumatic, Moist mucous membranes, Pharynx benign - Neck Neck: Supple, no meningeal sign, No JVD - Cardiac Cardiac: No murmur, No gallop, Strong equal pulses, Other (He irregularly irregular) - Respiratory Respiratory: No respiratory distress, Clear bilaterally - Derm Derm: Other (There is a flat macular rash primarily on the lower legs bilaterally, primarily around the heels and extends up into the mid lower leg bilaterally. It is nontender, there is no drainage or vesicles or pustules. There are some other scattered macular on the torso and upper extremities that are not ) - Extremities Extremities: No deformity, Normal ROM s pain, Other (1+ bilateral ankle edema) - Neuro Neuro: Alert and oriented X 3 Eye Opening: Spontaneous Motor: Obeys Commands Verbal: Oriented GCS Score: 15 - Psych Psych: Normal mood, Normal affect Results - Vitals Vitals: Vital Signs - 24 hr 09/21/22 09/21/22 17:58 19:22 Temperature 36.7 C Heart Rate 97 94 Respiratory 16 18 Rate Blood Pressure 106/57 L 104/53 L O2 Saturation 96 100 Oxygen O2 Source Room air - Labs Labs: Laboratory Tests 09/21/22 09/21/22 19:05 19:05 WBC 8.0 RBC 4.77 Hgb 14.8 Hct 46.0 MCV 96.4 MCH 31.0 MCHC 32.2 RDW 13.2 Plt Count 166 MPV 10.4 Neut # (Auto) 7.2 H Lymph # (Auto) 0.4 L [place] # (Auto) 0.4 Eos # (Auto) 0.0 Baso # (Auto) 0.0 Absolute Nucleated RBC 0.00 Nucleated RBC % 0.0 Sodium 133 L Potassium 4.1 Chloride 95 L Carbon Dioxide 25 Anion Gap 13.0 BUN 23 H Creatinine 1.0 Estimated GFR (MDRD) 53 L Glucose 145 H Calcium 8.7 PD Medical Decision Making - ED course Complexity details: reviewed results, re-evaluated patient, considered differential, d/w patient, d/w family ED course: 87-year-old female who presents with generalized rash that is pruritic. Started after taking a course of Augmentin and/or Keflex for a UTI. Patient has no other concerns today, is afebrile, and labs are stable. I discussed with patient and her daughter that this is likely a reaction to the antibiotics and recommended that they be stopped if not done so already and we will start her on a short course of famotidine and cetirizine. If patient develops new symptoms such as fever, painful rash, or other new symptoms, she was advised to follow-up in the ER. Departure - Departure Disposition: 01 Home, Self Care Clinical Impression: Allergic reaction due to antibacterial drug Condition: Good Prescriptions: Famotidine [Pepcid AC] 10 mg PO BID #20 tablet Cetirizine [ZyrTEC] 10 mg PO DAILY #10 tablet Comments: Nena likely had an allergic reaction to the antibiotics that she was on for urinary tract infection recently. Please stop these antibiotics they are not stopped already as she likely has completed course. She can take as needed cetirizine and famotidine for the next several days but it may take time for the rash to resolve. If she develops any new symptoms such as fever, peeling or scaling skin, pain or other new concerns, return to the ER.
[2022-09-21 19:26] LABS: CALCIUM 8.7 mg/dL (8.5-10.3); POTASSIUM 4.1 mmol/L (3.5-5.0)
[2022-09-21 19:29] LABS: BASOPHILS % (AUTO) 0.1 %; EOSINOPHILS % (AUTO) 0.4 %; HGB - HEMOGLOBIN 14.8 g/dL (12.0-16.0); LYMPHOCYTES # (AUTO) 0.4 10^3/uL (1.5-3.5); LYMPHOCYTES % (AUTO) 5.3 %; MEAN CORPUSCULAR HGB CONC 32.2 g/dL (32.0-36.0); MEAN CORPUSCULAR VOLUME 96.4 fL (81.0-99.0); MEAN PLATELET VOLUME 10.4 fL (7.9-10.8); MONOCYTES # (AUTO) 0.4 10^3/uL (0.0-1.0); MONOCYTES % (AUTO) 4.4 %; NEUTROPHILS # (AUTO) 7.2 10^3/uL (1.5-6.6); NEUTROPHILS % (AUTO) 89.4 %; PLT - PLATELET COUNT 166 10^3/uL (130-450); RED BLOOD COUNT 4.77 10^6/uL (4.20-5.40); RED CELL DISTRIBUTION WIDTH 13.2 % (12.0-15.0)
[2022-09-21 19:59] VITALS: BP 102/56
== END 2022-09-21 19:58 | disposition home or self-care (01) ==
LOC: EDUNIT# → ED 17:53
DX: R21 Rash and other nonspecific skin eruption (principal); T36.95XA Adverse effect of unspecified systemic antibiotic, initial encounter
CPT/HCPCS: 36415; 80048; 85025; 99283; A9270; J7512

== ENCOUNTER 2022-09-22 17:06 | Outpatient (CLI) | payer MEDICARE, OTHER | END 2022-09-22 17:07 | disposition critical access hospital (66) | LOC: EMS 17:06 | DX: R50.9 Fever, unspecified (principal); R26.81 Unsteadiness on feet; L50.9 Urticaria, unspecified | CPT/HCPCS: A0425; A0429 ==

== ENCOUNTER 2022-09-22 17:28 | Inpatient (IN) | payer MEDICARE, OTHER ==
[2022-09-22] MEDS ORDERED: ACETAMINOPHEN 325 MG TABLET PO STA (17:50)
[2022-09-22] MEDS ORDERED: ACETAMINOPHEN 500 MG TABLET PO STA (17:50)
[2022-09-22 18:28] LABS: BASOPHILS % (AUTO) 0.1 %; EOSINOPHILS # (AUTO) 0.2 10^3/uL (0.0-0.7); EOSINOPHILS % (AUTO) 1.6 %; HCT - HEMATOCRIT 46.3 % (37.0-47.0); LYMPHOCYTES # (AUTO) 0.3 10^3/uL (1.5-3.5); LYMPHOCYTES % (AUTO) 2.1 %; MEAN CORPUSCULAR HGB CONC 32.4 g/dL (32.0-36.0); MEAN CORPUSCULAR VOLUME 95.7 fL (81.0-99.0); MEAN PLATELET VOLUME 10.4 fL (7.9-10.8); MONOCYTES # (AUTO) 0.3 10^3/uL (0.0-1.0); MONOCYTES % (AUTO) 2.1 %; NEUTROPHILS # (AUTO) 13.5 10^3/uL (1.5-6.6); NEUTROPHILS % (AUTO) 93.4 %; PLT - PLATELET COUNT 156 10^3/uL (130-450); RED BLOOD COUNT 4.84 10^6/uL (4.20-5.40); RED CELL DISTRIBUTION WIDTH 13.8 % (12.0-15.0); WHITE BLOOD COUNT 14.4 x10^3/uL (4.8-10.8)
[2022-09-22] MEDS: SODIUM CHLORIDE 0.9% IV STA ×2 (18:34→19:15)
[2022-09-22] MEDS ORDERED: VANCOMYCIN INJ 1.5 GM in SODIUM CHLORIDE 0.9% 500 ML IV STA (18:39)
[2022-09-22 18:40] LABS: ALBUMIN/GLOBULIN RATIO 1.4 (1.0-2.2); BILIRUBIN,TOTAL 1.4 mg/dL (0.2-1.0); CALCIUM 8.8 mg/dL (8.5-10.3); CREATININE 1.5 mg/dL (0.4-1.0); LACTIC ACID, VENOUS 2.3 mmol/L (0.5-2.2); POTASSIUM 4.3 mmol/L (3.5-5.0); TOTAL PROTEIN 6.9 g/dL (6.7-8.2)
[2022-09-22] MEDS ORDERED: PIPERACILLIN/TAZOBACTAM 3.375 GM in SODIUM CHLORIDE 0.9% MINIBAG 100 ML IV STA (18:40)
--- NOTE | 2022-09-22 18:53 | XRAY Report ---
PROCEDURE: Chest 1 View X-Ray INDICATIONS: chest pain TECHNIQUE: One view of the chest was acquired. COMPARISON: 07/19/2021, 05/05/2021 FINDINGS: Surgical changes and devices: None. Lungs and pleura: Minimal streaky opacity can be seen at the left lung base. The left costophrenic a ngle is blunted. Mediastinum: Mediastinal contours appear normal. Heart size is at the upper limits of normal. Calc ification is seen of the aortic arch. Bones and chest wall: No suspicious bony lesions. Age-appropriate degenerative changes are seen. Overlying soft tissues appear unremarkable. IMPRESSION: A likely small left-sided pleural effusion with atelectasis. Heart size is at the upper limits of normal. Reviewed by: Abraham Gonzalez MD on 09/22/2022 5:52 PM [place] Approved by: Abraham Gonzalez MD on 09/22/2022 5:52 PM [place] Station ID: [id number]
--- NOTE | 2022-09-22 19:01 | ED Physician Documentation ---
History of Present Illness - Stated complaint Stated Complaint: FEVER - Chief complaint Chief Complaint: Fever - Additonal information Additional information: 87-year-old female is brought to the emergency department for evaluation of fever and rash. Her daughter brings her in from the care facility. Patient is demented. Much of the history is obtained from daughter as well as a review of the chart as the patient was seen in the ER yesterday. Reportedly the patient had a urinary tract infection and had been started on Augmentin on the . However this was changed to Keflex on 13 September. The patient began to develop what appears to be a petechial rash on her legs yesterday morning and was seen in the ER here. At that time provider felt the rash was most likely a drug reaction. She was advised to stop the Keflex and was started on cetirizine and Pepcid. Over the last 24 hours the patient has had progression of her rash to include all of her torso arms and face. She is also developed a fever. She presents here at 39.6. Past medical history is most significant for atrial fib, mitral valve regurg, chronic kidney disease as well as Alzheimer's. She is on digoxin, atorvastatin and Eliquis. Reportedly her daughter tells me that prior ro 2014 she had a POLST form indicating she was a DNR. However after the diagnosis of dementia a secondary POLST form was filled out by the patient which indicated a full code. The daughter does not think her mom has the capacity to make these decisions and at this time based on my evaluation I am inclined to agree. The daughter requests that her mom be a DNR/DNI though she is okay with antibiotics and IV fluids. Review of Systems Constitutional: denies: Fever Skin: reports: Rash PD PAST MEDICAL HISTORY - Past Medical History Cardiovascular: Atrial fibrillation, Valve disorder Respiratory: None Neuro: Dementia Endocrine/Autoimmune: None GI: None : Renal insuffiency Musculoskeletal: Other Derm: None - Past Surgical History Past Surgical History: Yes General: Bowel surgery, Other - Present Medications Home Medications: Ambulatory Orders Medication Instructions Recorded Confirmed Apixaban [Eliquis] 2.5 mg PO BIDWM 04/30/21 07/20/21 Cholecalciferol [Vitamin D3] 25 mcg PO DAILY 04/30/21 07/20/21 Digoxin [Lanoxin] 125 mcg PO SUMOWETHSA 04/30/21 07/20/21 QUEtiapine [SEROquel] 25 mg PO QPM 04/30/21 07/20/21 Acetaminophen [Tylenol] 650 mg PO Q4H PRN 07/20/21 07/20/21 Alprazolam [Xanax] 0.25 mg PO DAILY PRN 07/20/21 07/20/21 Loratadine [Claritin] 10 mg PO DAILY 07/20/21 07/20/21 Pantoprazole Sodium [Protonix] 20 mg PO QDAC 07/20/21 07/20/21 Sertraline [Zoloft] 25 mg PO DAILY 07/20/21 07/20/21 Atorvastatin [Lipitor] 20 mg PO QPM #30 tablet 07/21/21 Cetirizine [ZyrTEC] 10 mg PO DAILY #10 tablet 09/21/22 Famotidine [Pepcid AC] 10 mg PO BID #20 tablet 09/21/22 - Allergies Allergies/Adverse Reactions: Allergies Allergy/AdvReac Type Severity Reaction Status Date / Time Sulfa (Sulfonamide Allergy Nausea Verified 09/22/22 17:39 Antibiotics) - Social History Does the pt smoke?: No Smoking Status: Never smoker Does the pt drink ETOH?: No Does the pt have substance abuse?: No - POLST Patient has POLST: Yes POLST Status: Full Code PD ED PE NORMAL - General General: No acute distress. No: Alert and oriented X 3 (Geriatric frail appearance) - HEENT HEENT: Moist mucous membranes (No lesions seen within the oral mucosa), Pharynx benign - Cardiac Cardiac: RRR (Sinus rhythm on the monitor.), No murmur, Strong equal pulses - Respiratory Respiratory: No respiratory distress, Clear bilaterally - Abdomen Abdomen: Normal bowel sounds, Soft - Derm Derm: Other (Petechial appearing rash that extends from the feet up the legs torso arms and legs. There are larger areas of coalescence and papular appearance to the rash on the face and arms. Negative Nikolsky.) - Extremities Extremities: No deformity, No tenderness to palpate - Neuro Neuro: peer counselor 2-12 intact. No: Alert and oriented X 3 (Confused at baseline) Eye Opening: Spontaneous Motor: Obeys Commands Verbal: Oriented GCS Score: 15 Results - Vitals Vitals: Vital Signs - 24 hr 02/11/0909/22/22 09/22/22 17:37 18:26 19:19 Temperature 39.6 C H 39.1 C H Heart Rate 108 H 109 H 105 H Respiratory 20 18 22 Rate Blood Pressure 114/51 L 116/65 87/43 L O2 Saturation 96 100 93 Oxygen O2 Source Room air - Labs Labs: Laboratory Tests 09/22/22 09/22/22 09/22/22 18:15 18:15 18:15 WBC 14.4 H RBC 4.84 Hgb 15.0 Hct 46.3 MCV 95.7 MCH 31.0 MCHC 32.4 RDW 13.8 Plt Count 156 MPV 10.4 Neut # (Auto) 13.5 H Lymph # (Auto) 0.3 L Collier # (Auto) 0.3 Eos # (Auto) 0.2 Baso # (Auto) 0.0 Absolute Nucleated RBC 0.00 Nucleated RBC % 0.0 ESR Sodium 133 L Potassium 4.3 Chloride 96 L Carbon Dioxide 24 Anion Gap 13.0 BUN 34 H Creatinine 1.5 H Estimated GFR (MDRD) 33 L Glucose 161 H Lactic Acid 2.3 H Calcium 8.8 Total Bilirubin 1.4 H AST 29 ALT 42 Alkaline Phosphatase 55 C-Reactive Protein Total Protein 6.9 Albumin 4.0 Globulin 2.9 Albumin/Globulin Ratio 1.4 Procalcitonin Urine Color Urine Clarity Urine pH Ur Specific [place] Urine Protein Urine Glucose (UA) Urine Ketones Urine Occult Blood Urine Nitrite Urine Bilirubin Urine Urobilinogen Ur Leukocyte Esterase Urine RBC Urine WBC Ur Squamous Epith Cells Amorphous Sediment Urine Bacteria Urine Culture Comments Nasal Adenovirus (PCR) Nasal B. parapertussis DNA (PCR) Nasal Coronavir 229E PCR Nasal Coronavir HKU1 PCR Nasal Coronavir NL63 PCR Nasal Coronavir OC43 PCR Nasal Enterovir/Rhinovir PCR Nasal Influenza B PCR Nasal Influenza A PCR Nasal Parainfluen 1 PCR Nasal Parainfluen 2 PCR Nasal Parainfluen 3 PCR Nasal Parainfluen 4 PCR Nasal RSV (PCR) Nasal B.pertussis DNA PCR Nasal C.pneumoniae (PCR) Mason Human Metapneumo PCR Nasal M.pneumoniae (PCR) Nasal SARS-CoV-2 (PCR) Last Dose Date Last Dose Time Digoxin 09/22/22 09/22/22 09/22/22 18:15 18:15 18:15 WBC RBC Hgb Hct MCV MCH MCHC RDW Plt Count MPV Neut # (Auto) Lymph # (Auto) Collier # (Auto) Eos # (Auto) Baso # (Auto) Absolute Nucleated RBC Nucleated RBC % ESR 9 Sodium Potassium Chloride Carbon Dioxide Anion Gap BUN Creatinine Estimated GFR (MDRD) Glucose Lactic Acid Calcium Total Bilirubin AST ALT Alkaline Phosphatase C-Reactive Protein 6.6 H Total Protein Albumin Globulin Albumin/Globulin Ratio Procalcitonin Urine Color Urine Clarity Urine pH Ur Specific [place] Urine Protein Urine Glucose (UA) Urine Ketones Urine Occult Blood Urine Nitrite Urine Bilirubin Urine Urobilinogen Ur Leukocyte Esterase Urine RBC Urine WBC Ur Squamous Epith Cells Amorphous Sediment Urine Bacteria Urine Culture Comments Nasal Adenovirus (PCR) Nasal B. parapertussis DNA (PCR) Nasal Coronavir 229E PCR Nasal Coronavir HKU1 PCR Nasal Coronavir NL63 PCR Nasal Coronavir OC43 PCR Nasal Enterovir/Rhinovir PCR Nasal Influenza B PCR Nasal Influenza A PCR Nasal Parainfluen 1 PCR Nasal Parainfluen 2 PCR Nasal Parainfluen 3 PCR Nasal Parainfluen 4 PCR Nasal RSV (PCR) Nasal B.pertussis DNA PCR Nasal C.pneumoniae (PCR) Mason Human Metapneumo PCR Nasal M.pneumoniae (PCR) Nasal SARS-CoV-2 (PCR) Last Dose Date UNK Last Dose Time UNK Digoxin 0.8 09/22/22 09/22/22 09/22/22 18:15 18:55 18:55 WBC RBC Hgb Hct MCV MCH MCHC RDW Plt Count MPV Neut # (Auto) Lymph # (Auto) Collier # (Auto) Eos # (Auto) Baso # (Auto) Absolute Nucleated RBC Nucleated RBC % ESR Sodium Potassium Chloride Carbon Dioxide Anion Gap BUN Creatinine Estimated GFR (MDRD) Glucose Lactic Acid Calcium Total Bilirubin AST ALT Alkaline Phosphatase C-Reactive Protein Total Protein Albumin Globulin Albumin/Globulin Ratio Procalcitonin 0.51 Urine Color YELLOW Urine Clarity HAZY Urine pH 6.0 Ur Specific [place] >=1.030 H Urine Protein TRACE Urine Glucose (UA) NEGATIVE Urine Ketones NEGATIVE Urine Occult Blood MODERATE H Urine Nitrite NEGATIVE Urine Bilirubin NEGATIVE Urine Urobilinogen 0.2 (NORMAL) Ur Leukocyte Esterase NEGATIVE Urine RBC 0-5 Urine WBC 0-3 Ur Squamous Epith Cells RARE Squamous Amorphous Sediment Few Urine Bacteria Few Urine Culture Comments NOT INDICATED Nasal Adenovirus (PCR) NOT DETECTED Nasal B. parapertussis DNA (PCR) NOT DETECTED Nasal Coronavir 229E PCR NOT DETECTED Nasal Coronavir HKU1 PCR NOT DETECTED Nasal Coronavir NL63 PCR NOT DETECTED Nasal Coronavir OC43 PCR NOT DETECTED Nasal Enterovir/Rhinovir PCR NOT DETECTED Nasal Influenza B PCR NOT DETECTED Nasal Influenza A PCR NOT DETECTED Nasal Parainfluen 1 PCR NOT DETECTED Nasal Parainfluen 2 PCR NOT DETECTED Nasal Parainfluen 3 PCR NOT DETECTED Nasal Parainfluen 4 PCR NOT DETECTED Nasal RSV (PCR) NOT DETECTED Nasal B.pertussis DNA PCR NOT DETECTED Nasal C.pneumoniae (PCR) NOT DETECTED Mason Human Metapneumo PCR NOT DETECTED Nasal M.pneumoniae (PCR) NOT DETECTED Nasal SARS-CoV-2 (PCR) NOT DETECTED Last Dose Date Last Dose Time Digoxin - Rads (name of study) cxr Radiology: Final report received (Likely small left-sided pleural effusion with atelectasis. Heart upper size of normal.) PD Medical Decision Making - ED course Complexity details: d/w family ED course: 87-year-old female returns to the emergency department for evaluation of worsening rash that began yesterday as well as fever. Recently was treated for urinary tract infection. Initially started on Augmentin but transition to Keflex on the . When seen yesterday provider felt this was likely an allergic drug reaction and was discharged with prescription for some cetirizine and Pepcid. However patient's daughter reports that the rash has worsened and now extends up the torso and includes the face. She is also developed a fever. She presents here at 39.6 degrees. However she is normotensive. She does have some mild tachycardia with a heart rate of 108. My differentials at this time include sepsis, vasculitis vs mobilliform drug reaction. with evaluation of her labs I do note that her CBC shows an elevated white count as well as some elevated neutrophils. This is in contrast to a normal CBC yesterday. she has developed a milk hedy on her electrolytes. pt also has a mild lactate elvation. as such, she presents as septic; though the source is not yet clear. procalcitonin only 0.51. This is flat and not overwhelming for severe sepsis Her UA showed no s/s of infection. blood cx X2 are pending. CXR without focal opacity. pt was repleted with 30 ml/kg of crystalloid and started on broad- spectrum abx vanco and zosyn Pt's sed rate is not elelvated. she does have an elevated CRP. vasculitis as cause of rash remains on differential, though is not yet clear. rj defer decision for steroids to the inpatient team. 1934: I spoke with Dr. Varghese the telehealth hospitalist who agrees to bring the patient in for further evaluation and management. Res PCR is pending at this time. I have also discussed goals of care with the patient's daughter. she wishes her mom to be a DNR/DNI. A polst form completed in 2017 (after a formal dx of dementia was made) indicates full resuscitative efforts. However her daughter tells me that her mom had expressed otherwise before a dementia dx. As such we will honor the daughter's wishes and alllow the patient to be DNR/DNI. I do not feel that the patient has the capacity to make her own care decisions given her dementia Departure - Departure Disposition: 66 [facility] DC/Xfer Clinical Impression: Petechial rash Sepsis Qualifiers: Sepsis type: sepsis due to unspecified organism Sepsis acute organ dysfunction status: with acute organ dysfunction Severe sepsis acute organ dysfunction type: acute renal failure Acute renal failure type: unspecified Severe sepsis shock status: without septic shock Qualified Code(s): A41.9 - Sepsis, unspecified organism Condition: Fair Record reviewed to determine appropriate education?: Yes Discharge Date/Time: 09/22/22 20:57
[2022-09-22 19:25] LABS: BILIRUBIN,URINE NEGATIVE (NEGATIVE); GLUCOSE, URINE (UA) NEGATIVE (NEGATIVE); KETONES,URINE (UA) NEGATIVE (NEGATIVE); LEUKOCYTE ESTERASE, URINE NEGATIVE (NEGATIVE); NITRITE,URINE NEGATIVE (NEGATIVE); OCCULT BLOOD,URINE MODERATE (NEGATIVE); PROTEIN,URINE TRACE mg/dL (NEGATIVE); UROBILINOGEN,URINE 0.2 (NORMAL) E.U./dL (NORMAL)
[2022-09-22 19:25] LABS: DIGOXIN 0.8 ng/mL
[2022-09-22 19:26] LABS: CLARITY,URINE HAZY (CLEAR)
[2022-09-22 19:36] LABS: WBC,URINE 0-3 /HPF (0-5)
[2022-09-22 19:37] LABS: AMORPHOUS SEDIMENT,UR Few /LPF; BACTERIA,URINE Few /HPF (None Seen); RBC,URINE 0-5 /HPF (0-5); SQUAMOUS EPITHELIAL CELL,UR RARE Squamous (<= Few)
[2022-09-22] MEDS ORDERED: ONDANSETRON 4 MG/2 ML VIAL IVP PRN (19:38)
[2022-09-22] MEDS ORDERED: SODIUM CHLORIDE FLUSH 0.9% 10 ML SYRINGE IVP PRN (19:38)
--- NOTE | 2022-09-22 19:56 | HISTORY & PHYSICAL EXAMINATION ---
Chief Complaint - Chief Complaint Chief Complaint: RASH History of Present Illness - History of Present Illness HPI Comment/Other: 87-year-old female with PMH Dementia, A fib, Mitral valve regurg, CKD , hyperlipidemia is brought to the emergency department for evaluation of fever and rash. Her daughter brings her in from the care facility. Patient is demented. Much of the history is obtained from daughter as well as a review of the chart as the patient was seen in the ER yesterday. Reportedly the patient had a urinary tract infection and had been started on Augmentin on the . However this was changed to Keflex on 13 September. The patient began to develop what appears to be a petechial rash on her legs yesterday morning and was seen in the ER here. At that time provider felt the rash was most likely a drug reaction. She was advised to stop the Keflex and was started on cetirizine and Pepcid. Over the last 24 hours the patient has had progression of her rash to include all of her torso arms and face. She is also developed a fever. She presents here at 39.6. Past medical history is most significant for atrial fib, mitral valve regurg, chronic kidney disease as well as Alzheimer's. She is on digoxin, atorvastatin and Eliquis. On presentation, patient was febrile, tachycardic. Labs showed WBC 14, Vegetable Specker 1.5, Lactic acid 2.3 In ER, patient also became hypotensive with SBP in 80`s As per ER physician, 30 ml/kg fluid bolus has been ordered along with IV zosyn and vanco. As per Joan Cortés , she talked to patient`s daughter and patient is DNR/DNI Patient is being admitted due to severe sepsis, rask, MARIA E, lactic acidosis History - Past Medical History Cardiovascular: reports: Atrial fibrillation, Valve disorder Respiratory: reports: None Neuro: reports: Dementia Endocrine/Autoimmune: reports: None GI: reports: None : reports: Renal insuffiency Musculoskeletal: reports: Other Derm: reports: None MRSA Hx?: No - Past Surgical History General: reports: Bowel surgery, Other - Family & Social History Family History Comment/Other: Patient cannot recall medical history of family members Social History Notes: She resides at [facility]. She gets around using a walker. She requires some assistance but is able to feed and dress herself - POLST Patient has POLST: Yes POLST Status: Full Code Meds/Allgy - Home Medications Home Medications: Ambulatory Orders Medication Instructions Recorded Confirmed Apixaban [Eliquis] 2.5 mg PO BIDWM 04/30/21 07/20/21 Cholecalciferol [Vitamin D3] 25 mcg PO DAILY 04/30/21 07/20/21 Digoxin [Lanoxin] 125 mcg PO SUMOWETHSA 04/30/21 07/20/21 QUEtiapine [SEROquel] 25 mg PO QPM 04/30/21 07/20/21 Acetaminophen [Tylenol] 650 mg PO Q4H PRN 07/20/21 07/20/21 Alprazolam [Xanax] 0.25 mg PO DAILY PRN 07/20/21 07/20/21 Loratadine [Claritin] 10 mg PO DAILY 07/20/21 07/20/21 Pantoprazole Sodium [Protonix] 20 mg PO QDAC 07/20/21 07/20/21 Sertraline [Zoloft] 25 mg PO DAILY 07/20/21 07/20/21 Atorvastatin [Lipitor] 20 mg PO QPM #30 tablet 07/21/21 Cetirizine [ZyrTEC] 10 mg PO DAILY #10 tablet 09/21/22 Famotidine [Pepcid AC] 10 mg PO BID #20 tablet 09/21/22 - Allergies Allergies/Adverse Reactions: Allergies Allergy/AdvReac Type Severity Reaction Status Date / Time Sulfa (Sulfonamide Allergy Nausea Verified 09/22/22 17:39 Antibiotics) Review of Systems - Other Findings Other Findings: Unable to obtain due to dementia Exam - Vital Signs Vital Signs: Vital Signs x48h Temp Pulse Resp BP Pulse Ox 09/22/22 19:19 39.1 C H 105 H 22 87/43 L 93 09/22/22 18:26 109 H 18 116/65 100 09/22/22 17:37 39.6 C H 108 H 20 114/51 L 96 - Physical Exam General Appearance: positive: No acute distress, Alert Eyes Bilateral: positive: Normal inspection ENT: positive: ENT inspection nml Neck: positive: Nml inspection Respiratory: positive: No respiratory distress Cardiovascular: positive: Tachycardia Abdomen: positive: Non-tender, Nml bowel sounds Skin: positive: Skin rash Extremities: positive: No pedal edema Neurologic/Psychiatric: positive: Disoriented to time Conclusion/Plan - Lab Results Fish Bones: 09/22/22 18:15 09/22/22 18:15 - Other Other Results/Comments: A; Severe sepsis Diffuse erythmatous rash MARIA E Lactic acidosis Weakness Leukocytosis Dementia Atrial fib on Eliquis Hyperlipidemia H/O CKD PLan: Admit in med surg with tele Follow cultures Start NS 125 cc/h Start zosyn Start vanco pharmacy to dose Seriel lactic acid Repeat CBC, CMP in am Start solumedrol 40 mg iv q 12 h Benadryl 25 mg po qq6h prn for itching Monitor I/O, electrolytes PT/OT Cont Eliquis and dig Supportive care DVT prophylaxic: Pt is on Eliquis Code status: DRN/DNI ( Confirmed by daughter at bedside) Pt is admitted as inpatient as more than 2 midnight stay is expected
[2022-09-22] MEDS ORDERED: PIPERACILLIN/TAZOBACTAM 3.375 GM in SODIUM CHLORIDE 0.9% MINIBAG 100 ML IV SCH (20:00)
[2022-09-22] MEDS ORDERED: ACETAMINOPHEN 325 MG TABLET PO PRN (20:14)
[2022-09-22 20:15] LABS: CORONAVIRUS 229E-RESP PCR NOT DETECTED; CORONAVIRUS HKU1-RESP PCR NOT DETECTED; CORONAVIRUS NL63-RESP PCR NOT DETECTED; CORONAVIRUS OC43-RESP PCR NOT DETECTED; HUMAN METAPNEUMOVIRUS NOT DETECTED; INFLUENZA A- RESP PCR PANEL NOT DETECTED; INFLUENZA B - RESP PCR PANEL NOT DETECTED; PARAINFLUENZA VIRUS 1 NOT DETECTED; PARAINFLUENZA VIRUS 2 NOT DETECTED; PARAINFLUENZA VIRUS 3 NOT DETECTED; PARAINFLUENZA VIRUS 4 NOT DETECTED; RHINOVIRUS/ENTEROVIRUS NOT DETECTED; RSV- RESP PCR PANEL NOT DETECTED; SARS-CoV-2 -RESP PCR PANEL NOT DETECTED
[2022-09-22 20:16] LABS: B. PARAPERTUSSIS- RESP PCR PAN NOT DETECTED; B. PERTUSSIS- RESP PCR PANEL NOT DETECTED; C. PNEUMONIAE- RESP PCR PANEL NOT DETECTED; M. PNEUMONIAE- RESP PCR PANEL NOT DETECTED
[2022-09-22] MEDS ORDERED: HEPARIN 5,000 UNIT/ML VIAL SUBQ SCH (21:00)
[2022-09-22] MEDS ORDERED: APIXABAN 5 MG TABLET PO SCH (21:00)
[2022-09-22] MEDS: SODIUM CHLORIDE 0.9% 1,000 ML IV SCH (21:26)
[2022-09-22] MEDS: methylPREDNISolone SUCCINATE 40 MG/ML VIAL IVP SCH (21:29)
[2022-09-22] MEDS: SODIUM CHLORIDE FLUSH 0.9% 10 ML SYRINGE IVP SCH (21:31)
[2022-09-23] MEDS: SODIUM CHLORIDE FLUSH 0.9% 10 ML SYRINGE IVP SCH ×3 (01:03→17:44)
[2022-09-23] MEDS: PIPERACILLIN/TAZOBACTAM 2.25 GM in SODIUM CHLORIDE 0.9% MINIBAG 100 ML IV SCH ×3 (05:12→20:20)
[2022-09-23 08:56] LABS: BASOPHILS % (AUTO) 0.1 %; EOSINOPHILS # (AUTO) 0.1 10^3/uL (0.0-0.7); EOSINOPHILS % (AUTO) 0.7 %; HCT - HEMATOCRIT 45.7 % (37.0-47.0); HGB - HEMOGLOBIN 14.4 g/dL (12.0-16.0); LYMPHOCYTES # (AUTO) 0.3 10^3/uL (1.5-3.5); MEAN CORPUSCULAR HEMOGLOBIN 30.8 pg (27.0-31.0); MEAN CORPUSCULAR HGB CONC 31.5 g/dL (32.0-36.0); MEAN CORPUSCULAR VOLUME 97.9 fL (81.0-99.0); MEAN PLATELET VOLUME 10.6 fL (7.9-10.8); MONOCYTES # (AUTO) 0.1 10^3/uL (0.0-1.0); MONOCYTES % (AUTO) 0.9 %; NEUTROPHILS # (AUTO) 13.3 10^3/uL (1.5-6.6); NEUTROPHILS % (AUTO) 95.4 %; PLT - PLATELET COUNT 147 10^3/uL (130-450); RED BLOOD COUNT 4.67 10^6/uL (4.20-5.40); WHITE BLOOD COUNT 13.9 x10^3/uL (4.8-10.8)
[2022-09-23 09:07] LABS: CALCIUM 8.1 mg/dL (8.5-10.3); CREATININE 1.1 mg/dL (0.4-1.0)
[2022-09-23] MEDS: SODIUM CHLORIDE 0.9% 1,000 ML IV SCH ×2 (09:29→18:52)
--- NOTE | 2022-09-23 10:26 | PHARMACY PROGRESS NOTE ---
- Best Possible Medication History Admit Date and Time: 09/22/221937 Processed by: Pharmacy Medication History completed: Yes Patient Interview: Pt unable to participate Secondary Source(s): Facility MAR as ONLY source As the person ultimately responsible for medication therapy, providers are able to order a medication from an existing home medication list in [facility] via the "Reconcile Routine" prior to Confirmation of that medication by client support analyst. Such practice is discouraged except when the physician, in their clinical judgment, deems that a medical need exists for a medication without regard to previous use.
[2022-09-23] MEDS: APIXABAN 2.5 MG TABLET PO SCH ×2 (10:51→20:52)
[2022-09-23] MEDS: methylPREDNISolone SUCCINATE 40 MG/ML VIAL IVP SCH ×2 (10:52→20:52)
[2022-09-23] MEDS: DIGOXIN 125 MCG TABLET PO SCH (10:52)
--- NOTE | 2022-09-23 11:27 | PHARMACY PROGRESS NOTE ---
- Therapy Status Vancomycin regimen day #: 2 Therapy status: Awaiting steady state Basis for treatment: Empirical Treatment indication: SEPSIS Trough goal: 15-20 Concurrent antibiotics: ZOSYN - MARIA E Risk Risk level for Acute Kidney Injury: Moderate Acute Kidney Injury risk factors: Other nephrotoxic agents, Piperacillin/Tozobactam, Goal trough >15, Sepsis - Monitoring and Recommendation Clinical response to treatment: I&O Previous 24 hours 09/21/22 09/22/22 09/23/22 23:59 23:59 23:59 Intake Total 452.168 2630.833 Output Total 200 500 Balance 279.167 595.833 Lab Results 09/23/22 09/22/22 09/22/22 08:25 18:15 18:15 ESR 9 BUN 27 H 34 H Creatinine 1.1 H 1.5 H Estimated GFR (MDRD) 47 L 33 L Monitoring plan: Daily serum creatinine Areas for additional monitoring: IV to PO when appropriate, Therapy de- escalation based on culture results Pharmacy recommendation: Continue current regime
--- NOTE | 2022-09-23 16:19 | PROVIDER PROGRESS NOTE ---
Progress Note September 23, 2022 4:08 PM History and physical reviewed from telemedicine admission. Daughter is at the bedside to also help. The rash started on her legs, and has been going up her body since September 21. She says it does not itch. She is a delightful elderly woman who does not know where she is but would love to talk. She looks at her rash in amazement and says "worded that come from". She was treated as presumptive sepsis with fever, tachycardia, elevated white cell count, hypotension. She is responded to fluid bolus, and Zosyn and vancomycin. She is still mildly hypotensive today at 90 systolic. Heart rate is in the 90s now as opposed to the 100s. She is afebrile after being 39.9 last night. White cell count is still elevated at 13.9 but she is on steroids. Of note her sed rate was 9 last night. On examination she is a twin, alert elderly female who has no idea where she is or why she is here. But she is smiling, and cooperative. 37.2, pulse 87, blood pressure 103/42, respirations 18, 97% on room air. Neck is supple, and tongue is not swollen. Speech is lucid. Lungs have coarse upper airway tubular breath sounds but are clear. No tachypnea, no increased respiratory effort with talking to me. No neck stridor. No difficulty breathing. Irregular rate and rhythm. Soft systolic murmur loudest at the right upper sternal border. 2/6 Abdomen soft, hypoactive bowel sounds, nontender, not distended. Extremities with only minimal trace edema around the ankles. Joints are without pain or effusion Skin is covered in a nonblanching flat confluent red rash that starts at her legs and comes all the way up the trunk. It becomes dotted and nonconfluent in the upper anterior chest and over her breast and down her arms. Her face has edema around the eyes. White cell count 13.9. Hemoglobin 14.4. Hematocrit 45.7. Platelets 147. Sodium 136. Potassium 4. BUN 27 and down from 34. Creatinine 1.1 and down from 1.5. Lactic acid was 2.3 on admission is now 1.4. C-reactive protein is 6.6 last night. Procalcitonin 0.51. Dig dose was 0.8 Assessment/plan 1. Presumed sepsis. Urinalysis noncontributory But this is in a patient who is already partially treated for UTI and had antibiotics. Chest x-ray shows a left- sided pleural effusion with atelectasis. At this time source is not clear and she is on empiric antibiotic therapy. We will continue to treat as presumed sepsis because of the fever, white cell count and hypotension. However some of her symptomatology may be because of a drug reaction. Daughter was at the bedside. Condition was discussed. Treatment plan updated 2. Drug rash. On Solu-Medrol, and I will resume Pepcid. 3. Dementia without behavioral disturbance. Very pleasant lady. Cooperative. In the outpatient setting she is on Zoloft. That will be resumed. She also takes Seroquel. 4. Chronic atrial fibrillation. She is anticoagulated with Eliquis. That will be continued. She is rate controlled with digoxin and levels are adequate. That will be resumed. 5. Acute on chronic injury. Baseline creatinine is 0.8. On admission she is 1.5. Today she is improving at 1.1. We will continue IV fluids and then discontinue when she has adequate p.o. intake. Avoiding nephrotoxic drugs. Pharmacy is monitoring her vancomycin.
[2022-09-23] MEDS: FAMOTIDINE 20 MG TABLET PO SCH (20:52)
[2022-09-23] MEDS ORDERED: VANCOMYCIN INJ 1 GM in SODIUM CHLORIDE 0.9% 250 ML IV SCH (21:00)
[2022-09-24] MEDS: PIPERACILLIN/TAZOBACTAM 2.25 GM in SODIUM CHLORIDE 0.9% MINIBAG 100 ML IV SCH ×2 (04:20→12:35)
[2022-09-24] MEDS: SODIUM CHLORIDE 0.9% 1,000 ML IV SCH (05:40)
[2022-09-24] MEDS: SODIUM CHLORIDE FLUSH 0.9% 10 ML SYRINGE IVP SCH ×3 (07:50→18:07)
[2022-09-24 08:09] LABS: CALCIUM 7.6 mg/dL (8.5-10.3); POTASSIUM 3.7 mmol/L (3.5-5.0)
[2022-09-24] MEDS: FAMOTIDINE 20 MG TABLET PO SCH ×2 (10:05→20:14)
[2022-09-24] MEDS: APIXABAN 2.5 MG TABLET PO SCH ×2 (10:06→20:15)
[2022-09-24] MEDS: methylPREDNISolone SUCCINATE 40 MG/ML VIAL IVP SCH ×2 (10:06→20:15)
[2022-09-24] MEDS: DIGOXIN 125 MCG TABLET PO SCH (10:06)
[2022-09-24 10:15] LABS: BASOPHILS % (AUTO) 0.2 %; EOSINOPHILS % (AUTO) 0.3 %; HCT - HEMATOCRIT 40.8 % (37.0-47.0); HGB - HEMOGLOBIN 13.3 g/dL (12.0-16.0); LYMPHOCYTES # (AUTO) 0.4 10^3/uL (1.5-3.5); MEAN CORPUSCULAR HEMOGLOBIN 31.6 pg (27.0-31.0); MEAN CORPUSCULAR HGB CONC 32.6 g/dL (32.0-36.0); MEAN CORPUSCULAR VOLUME 96.9 fL (81.0-99.0); MEAN PLATELET VOLUME 10.8 fL (7.9-10.8); MONOCYTES # (AUTO) 0.1 10^3/uL (0.0-1.0); MONOCYTES % (AUTO) 1.1 %; NEUTROPHILS # (AUTO) 11.5 10^3/uL (1.5-6.6); NEUTROPHILS % (AUTO) 94.8 %; PLT - PLATELET COUNT 138 10^3/uL (130-450); RED BLOOD COUNT 4.21 10^6/uL (4.20-5.40); WHITE BLOOD COUNT 12.2 x10^3/uL (4.8-10.8)
[2022-09-24] MEDS ORDERED: SODIUM CHLORIDE 0.9% 1,000 ML IV SCH (15:05)
--- NOTE | 2022-09-24 15:10 | PROVIDER PROGRESS NOTE ---
Progress Note September 24, 2022 2:36 PM She is pleasantly demented. But needs a one-to-one supervision. She is very impulsive. Wants to keep on getting out of bed. But she denies any pain. She does frown and tell me that the rash is bothering her but not that it is itching, she just does not like how it looks. She points mainly to her legs and does not recognize how much she has on her trunk. She ate all of her breakfast while I was there with her. Our treatment has been that of presumptive sepsis because she presented with fever, tachycardia, elevated white cell count, hypotension. She is on Zosyn and vancomycin. White cell count still elevated at 12.2. No eosinophilia. Blood cultures are negative. Active Medications Acetaminophen (Acetaminophen 325 Mg Tablet) 650 mg PO Q6H PRN PRN Reason: FEVER > 100.5 F Apixaban (Apixaban 2.5 Mg Tablet) 2.5 mg PO BID [facility] Last Admin: 09/24/22 10:06 Dose: 2.5 mg Digoxin (Digoxin 125 Mcg Tablet) 62.5 mcg PO TUFR [facility] Digoxin (Digoxin 125 Mcg Tablet) 125 mcg PO SUMOWETHSA [facility] Famotidine (Famotidine 20 Mg Tablet) 20 mg PO BID [facility] Last Admin: 09/24/22 10:05 Dose: 20 mg Piperacillin Sod/Tazobactam (Sod 2.25 gm/ Sodium Chloride) 100 mls @ 200 mls/hr IV Q8H [facility] Last Infusion: 09/24/22 13:10 Dose: Infused Vancomycin HCl 1 gm/ Sodium (Chloride) 250 mls @ 167 mls/hr IV Q24H [facility] Last Infusion: 09/23/22 23:02 Dose: Infused Sodium Chloride (Normal Saline 0.9%) 1,000 mls @ 85 mls/hr IV .[id number] [facility] Methylprednisolone (Methylprednisolone Succinate 40 Mg/Ml Vial) 40 mg IVP Q12H [facility] Last Admin: 09/24/22 10:06 Dose: 40 mg Ondansetron HCl (Ondansetron 4 Mg/2 Ml Vial) 4 mg IVP Q6HR PRN PRN Reason: Nausea / Vomiting Quetiapine Fumarate (Quetiapine 25 Mg Tablet) 12.5 mg PO QPM [facility] Sertraline HCl (Sertraline 25 Mg Tablet) 25 mg PO DAILY [facility] Sodium Chloride (Sodium Chloride Flush 0.9% 10 Ml Syringe) 10 ml IVP PRN PRN PRN Reason: NEEDED PER PROVIDER ORDERS Sodium Chloride (Sodium Chloride Flush 0.9% 10 Ml Syringe) 10 ml IVP 0100,0900,1700 [facility] Last Admin: 09/24/22 10:06 Dose: 10 ml Home Meds: Apixaban [Eliquis] 2.5 mg PO BIDWM 04/30/21 Digoxin [Lanoxin] 62.5 mcg PO TUFR 04/30/21 QUEtiapine [SEROquel] 12.5 mg PO QPM 04/30/21 Sertraline [Zoloft] 25 mg PO DAILY 07/20/21 Cetirizine [ZyrTEC] 10 mg PO DAILY 09/23/22 Cholecalciferol [Vitamin D3] 25 mcg PO DAILY 09/23/22 Digoxin [Lanoxin] 125 mcg PO SUMOWETHSA 09/23/22 Famotidine 10 mg PO BID 09/23/22 Exam: Temperature 36.3, heart rate 80, blood pressure 112/55, respirations 18, 98% on room air. Cheerful elderly female who looks stated age. Alert, disoriented to person, place, and time. Nasolabial folds are red, and periorbital skin redness as well. But no stridor, tongue is not swollen. Neck is supple Lungs are clear to auscultation and percussion without any respiratory effort that is increased with talking to me or eating Regular rate and rhythm with a systolic ejection murmur Abdomen is soft, nontender, normal bowel sounds. Bowel movement was today. Extremities are without edema Skin: She has a blanching, nonpalpable petechial red rash that is dense around her ankles and then lightens to single dots as it comes up her shins. 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 It is confluent on her abdominal wall, and becomes sporadic and 1 cm big as it comes up to her upper chest wall, and down her arms. There is no flaking. Oral mucosa has no flaking. No ulceration. Palms and soles of feet are spared. Labs: White blood count 12.2, hemoglobin 13.3, hematocrit 40.8, platelets 138 Sodium 133, potassium 3.7, BUN 26, creatinine 1.0. Creatinine was 1.5 on admission. Blood cultures negative at 1 day Assessment/plan: 1. Presumed sepsis. Urinalysis without infection. However, she was identified as having a UTI before admission and was started on antibiotics. Those were Keflex and Augmentin. Keflex was September 13, Augmentin September 11. Drug rash started September 21. Blood cultures negative. Chest x-ray shows a left-sided pleural effusion with atelectasis. Zosyn and vancomycin are day #3. Fever was 39.6 on admission and she has been afebrile since admission. White cell count was 14.4 on admission and is 12.2. It is slowly coming down. Source of infection is not really clear. I have also been thinking that her fever and elevated white cell count could have been a drug reaction. Fluid balance is +2370 on September 22. And she is +2373 on September 23. Plan: With no source identified, I would like to stop antibiotics. Watch her for 24 to 48 hours. She is on 125 cc an hour of fluids. I will reduce it to 85 cc an hour. She is anywhere from 50% to 100% of her food. If she does not have a fever in the next 24 to 48 hours will discharge back to care facility. 2. 2 types of skin rashes. 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 On Solu-Medrol, Pepcid. 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 Does not appear to be Balderas-Eleazar. This rash may take days to resolve. She does not have to be in the hospital for that. 3. Dementia without behavioral disturbance. Impulsive, pleasant, delightful little lady. Cooperative and follows cues. Zoloft and Seroquel renewed. I rj l renew them for nighttime dosing to see if this might keep her down at night for sleeping. 3. Chronic atrial fibrillation. Eliquis and digoxin renewed. Rate is controlled. 4. Acute on chronic kidney injury. Baseline creatinine 0.8. On admission she is 1.5. Today she is 1.0. Pharmacy is monitoring her vancomycin. I am reducing her fluids to 85 cc an hour today. Depending on when nursing report tomorrow about her p.o. intake, consider discontinuing IV fluids tomorrow.
[2022-09-24] MEDS ORDERED: APIXABAN 2.5 MG TABLET PO SCH (17:00)
[2022-09-24] MEDS: QUEtiapine 25 MG TABLET PO SCH (20:14)
[2022-09-24] MEDS: SERTRALINE 25 MG TABLET PO SCH (20:14)
[2022-09-24] MEDS ORDERED: FAMOTIDINE 10 MG PO SCH (21:00)
[2022-09-24] MEDS ORDERED: VANCOMYCIN INJ 1 GM in SODIUM CHLORIDE 0.9% 250 ML IV SCH (21:00)
[2022-09-25] MEDS: SODIUM CHLORIDE FLUSH 0.9% 10 ML SYRINGE IVP SCH ×3 (00:11→18:01)
[2022-09-25] MEDS ORDERED: FUROSEMIDE 20 MG/2 ML VIAL IVP ONE (04:38)
[2022-09-25 05:14] LABS: BASOPHILS % (AUTO) 0.2 %; EOSINOPHILS % (AUTO) 0.1 %; HGB - HEMOGLOBIN 15.5 g/dL (12.0-16.0); LYMPHOCYTES # (AUTO) 0.5 10^3/uL (1.5-3.5); LYMPHOCYTES % (AUTO) 2.8 %; MEAN CORPUSCULAR HEMOGLOBIN 31.3 pg (27.0-31.0); MEAN CORPUSCULAR HGB CONC 32.3 g/dL (32.0-36.0); MEAN PLATELET VOLUME 10.7 fL (7.9-10.8); MONOCYTES # (AUTO) 0.8 10^3/uL (0.0-1.0); MONOCYTES % (AUTO) 4.8 %; NEUTROPHILS # (AUTO) 14.6 10^3/uL (1.5-6.6); NEUTROPHILS % (AUTO) 91.5 %; PLT - PLATELET COUNT 174 10^3/uL (130-450); RED BLOOD COUNT 4.95 10^6/uL (4.20-5.40); RED CELL DISTRIBUTION WIDTH 14.1 % (12.0-15.0)
[2022-09-25 05:18] LABS: CALCIUM 8.5 mg/dL (8.5-10.3); POTASSIUM 3.9 mmol/L (3.5-5.0)
[2022-09-25] MEDS ORDERED: DIGOXIN 125 MCG TABLET PO SCH (09:00)
[2022-09-25] MEDS: methylPREDNISolone SUCCINATE 40 MG/ML VIAL IVP SCH (09:23)
[2022-09-25] MEDS: SERTRALINE 25 MG TABLET PO SCH (09:23)
[2022-09-25] MEDS: APIXABAN 2.5 MG TABLET PO SCH ×2 (09:23→20:20)
--- NOTE | 2022-09-25 09:31 | XRAY Report ---
PROCEDURE: Chest 1 View X-Ray INDICATIONS: Shortness of breath TECHNIQUE: One view of the chest was acquired. COMPARISON: Chest x-ray 09/22/2021. FINDINGS: Surgical changes and devices: None. Lungs and pleura: Interval development of increased interstitial opacities are present. Mild bilater al effusions. Mediastinum: Mediastinal contours appear normal. Heart size is enlarged. Bones and chest wall: No suspicious bony lesions. Overlying soft tissues appear unremarkable. IMPRESSION: Increased interstitial opacities most suggestive of edema with presence of effusions and cardiomegaly . The above findings are concordant with preliminary report. Reviewed by: Leeanne Moody MD on 09/25/2022 9:29 AM [facility] Approved by: Leeanne Moody MD on 09/25/2022 9:29 AM [facility] Station ID: [id number]
[2022-09-25] MEDS: FAMOTIDINE 20 MG TABLET PO SCH ×2 (09:36→20:20)
--- NOTE | 2022-09-25 15:38 | PROVIDER PROGRESS NOTE ---
Progress Note Every 02/06/2023 3:27 PM Alert, cooperative. She really does need a one-to-one sitter because she is still impulsive. But when prompted she will comply with anything we asked her to do. She says that nothing bothers her. She says she does not like the look of the rash because it scares her but there is no itching, no pain. She has been off antibiotics for 24 hours now and there is been no fever. No recurrence of SIRS criteria. Active Medications Acetaminophen (Acetaminophen 325 Mg Tablet) 650 mg PO Q6H PRN PRN Reason: FEVER > 100.5 F Apixaban (Apixaban 2.5 Mg Tablet) 2.5 mg PO BID [facility] Last Admin: 09/25/22 09:23 Dose: 2.5 mg Digoxin (Digoxin 125 Mcg Tablet) 62.5 mcg PO TuFr@0900 [facility] Digoxin (Digoxin 125 Mcg Tablet) 125 mcg PO SuMoWeThSa@0900 [facility] Last Admin: 09/25/22 09:23 Dose: 125 mcg Famotidine (Famotidine 20 Mg Tablet) 20 mg PO BID [facility] Last Admin: 09/25/22 09:36 Dose: 20 mg Methylprednisolone (Methylprednisolone 4 Mg Tablet) 4 mg PO DAILYWM [facility] Ondansetron HCl (Ondansetron 4 Mg/2 Ml Vial) 4 mg IVP Q6HR PRN PRN Reason: Nausea / Vomiting Quetiapine Fumarate (Quetiapine 25 Mg Tablet) 12.5 mg PO QPM [facility] Last Admin: 09/24/22 20:14 Dose: 12.5 mg Sertraline HCl (Sertraline 25 Mg Tablet) 25 mg PO DAILY [facility] Last Admin: 09/25/22 09:23 Dose: 25 mg Sodium Chloride (Sodium Chloride Flush 0.9% 10 Ml Syringe) 10 ml IVP PRN PRN PRN Reason: NEEDED PER PROVIDER ORDERS Last Admin: 09/25/22 04:58 Dose: 10 ml Sodium Chloride (Sodium Chloride Flush 0.9% 10 Ml Syringe) 10 ml IVP 0100,0900,1700 [facility] Last Admin: 09/25/22 09:27 Dose: 10 ml Home Meds: Apixaban [Eliquis] 2.5 mg PO BIDWM 04/30/21 Digoxin [Lanoxin] 62.5 mcg PO TUFR 04/30/21 QUEtiapine [SEROquel] 12.5 mg PO QPM 04/30/21 Sertraline [Zoloft] 25 mg PO DAILY 07/20/21 Cetirizine [ZyrTEC] 10 mg PO DAILY 09/23/22 Cholecalciferol [Vitamin D3] 25 mcg PO DAILY 09/23/22 Digoxin [Lanoxin] 125 mcg PO SUMOWETHSA 09/23/22 Famotidine 10 mg PO BID 09/23/22 Exam: Temperature 36.4. Heart rate 92. Blood pressure 123/68. Respirations 18. 94% on room air. She is 5 foot 7 inches tall, 62 kg An alert, but completely disoriented twin elderly woman. She walks in the hallways continuously using a walker and a aide that is one-to-one. Neck is supple. There is been no evidence of anaphylaxis with a swollen tongue or thick neck. Lungs are clear. There is no stridor. Regular rate and rhythm Abdomen soft and nontender, normal bowel sounds Extremities are with trace edema Skin has the petechial red rash that is nonblanching on the lower extremities. The trunk and her anterior chest wall have a morbilliform, confluent, blanching rash. The smallest lesion is about a centimeter. Both of these rashes are fading. Neither rash bothers her. There is no itching. The palms and soles of her feet remain uninvolved. Sodium 139, potassium 3.9, BUN 27, creatinine 1.0. Glucose 152. White cell count has come up to 16,000. Yesterday she was 12.2. Hemoglobin 15.5. Hematocrit 48. There is no eosinophilia in the differential. Platelets 174 Blood cultures are negative after 2 days Assessment/plan: 1. Presumed sepsis. She was treated with broad-spectrum antibiotics because she had fever, leukocytosis, tachycardia. While her blood pressure was 114/51 on admission, 2 hours later she dropped her pressure to 87/43. However urinalysis was noncontributory. Chest x-ray had no pneumonia. Abdominal exam was negative for peritonitis. If she had sepsis we were not finding the source. She had good response with IV fluids and antibiotics and that blood pressure is normal now. She has had no fever. White cell count stayed elevated at 12.2 yesterday. She was treated with broad-spectrum antibiotics until yesterday. I have stopped the antibiotics and and waiting to see if she has recurrence of fever. So far she has not. Unfortunately her white cell count has come back up to 16,000. Plan: Continue to watch for signs and symptoms of infection. If she has fever, tachycardia, will need to resume broad-spectrum antibiotic with no clear source identified. I would repeat blood cultures and urine. 2.. Drug rash. I think the rash may have been the cause of her fever and white cell count. 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 Not painful, not pruritic. This could take days to resolve. If she does not have further recurrence of fever or signs and symptoms of infection, I think this patient could go back to [facility] and wait for the rash to resolve. I will change Solu-Medrol to p.o. Medrol Dosepak for tapering. Continue Pepcid. 3. Dementia without behavioral disturbance. Currently with one-to-one supervis ion per nursing policy because of impulsiveness. But she is cooperative, follows cues. On Zoloft and Seroquel. 4. Chronic atrial fibrillation. Rate is controlled. Eliquis and digoxin renewed. 5. Acute on chronic kidney injury. Creatinine 1.5 on admission. Baseline is 0.8. Yesterday and today she has been 1.0. She is now off vancomycin. She does not have good p.o. intake and that she is only drinking about 50 to 200 cc at a time. She is only eating 10% to 25% of her food. She is on IV fluids. Those will have to be stopped when she leaves the hospital.
[2022-09-25] MEDS: QUEtiapine 25 MG TABLET PO SCH (20:20)
[2022-09-26] MEDS: SODIUM CHLORIDE FLUSH 0.9% 10 ML SYRINGE IVP SCH ×2 (05:14→08:52)
[2022-09-26 05:43] LABS: BASOPHILS % (AUTO) 0.3 %; EOSINOPHILS # (AUTO) 0.1 10^3/uL (0.0-0.7); EOSINOPHILS % (AUTO) 0.9 %; HCT - HEMATOCRIT 39.9 % (37.0-47.0); HGB - HEMOGLOBIN 13.1 g/dL (12.0-16.0); LYMPHOCYTES # (AUTO) 0.6 10^3/uL (1.5-3.5); LYMPHOCYTES % (AUTO) 6.7 %; MEAN CORPUSCULAR HEMOGLOBIN 30.9 pg (27.0-31.0); MEAN CORPUSCULAR HGB CONC 32.8 g/dL (32.0-36.0); MEAN CORPUSCULAR VOLUME 94.1 fL (81.0-99.0); MEAN PLATELET VOLUME 10.7 fL (7.9-10.8); MONOCYTES # (AUTO) 0.7 10^3/uL (0.0-1.0); MONOCYTES % (AUTO) 7.9 %; NEUTROPHILS # (AUTO) 7.8 10^3/uL (1.5-6.6); NEUTROPHILS % (AUTO) 83.7 %; PLT - PLATELET COUNT 169 10^3/uL (130-450); RED BLOOD COUNT 4.24 10^6/uL (4.20-5.40); RED CELL DISTRIBUTION WIDTH 13.9 % (12.0-15.0); WHITE BLOOD COUNT 9.3 x10^3/uL (4.8-10.8)
[2022-09-26 05:50] LABS: CALCIUM 8.4 mg/dL (8.5-10.3); CREATININE 0.9 mg/dL (0.4-1.0); POTASSIUM 3.6 mmol/L (3.5-5.0)
[2022-09-26] MEDS ORDERED: methylPREDNISolone 4 MG TABLET PO ONE (08:00)
[2022-09-26] MEDS: FAMOTIDINE 20 MG TABLET PO SCH (08:51)
[2022-09-26] MEDS: SERTRALINE 25 MG TABLET PO SCH (08:51)
[2022-09-26] MEDS: APIXABAN 2.5 MG TABLET PO SCH (08:51)
[2022-09-26] MEDS ORDERED: DIGOXIN 125 MCG TABLET PO SCH (09:00)
[2022-09-26 11:03] VITALS: BP 115/76
--- NOTE | 2022-09-26 11:56 | Discharge Plan ---
"Discharge Plan for SNF / [facility] - Discharge Plan And Transition Orders Problem Reviewed?: Yes Disposition: 01 Home, Self Care Condition: Fair Allergies and Adverse Reactions: Allergies Allergy/AdvReac Type Severity Reaction Status Date / Time amoxicillin [From Augmentin] Allergy Rash Verified 09/26/22 11:33 cephalexin [From Keflex] Allergy Rash Verified 09/26/22 11:32 clavulanic acid Allergy Rash Verified 09/26/22 11:33 [From Augmentin] Sulfa (Sulfonamide Allergy Nausea Verified 09/22/22 17:39 Antibiotics) Health Concerns: Patient was admitted because of a fever and elevated white blood count. She received IV antibiotics empirically but no source of infection was found and we think it was a drug rash. Keflex and Augmentin have now been allergy to her allergy list in addition to sulfa medications. She had elevated BUN/creatinine and this improved with IV fluids. Plan of Treatment: Resume her usual medications. Care Goals: Improvement in symptoms and stabilization of the goals. Assessment: The daughter is in agreement with the plan. - SNF / GROUP HOME Transition Orders Admit to (Facility): [facility] Under the care of (Name): Jayden Nixon Discharge Diagnosis: 1. Drug rash. We think the rash may have been the cause of her fever and elevated white cell count. 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 Not painful, not pruritic. She is on a Medrol Dosepak for tapering and to continue Pepcid. 2. Dementia without behavioral disturbance. She is impulsive. But she is cooperative, follows cues. On Zoloft and Seroquel. 3. Chronic atrial fibrillation. Rate is controlled. Eliquis and Digoxin continued 4. Acute on chronic kidney injury. Creatinine 1.5 on admission. Baseline is 0.8. Latest was 1.0. Medicare Certification Statement: Notify PCP of admission and forward orders to primary provider for signature. Weight on admission and: Monthly Other Notification Orders: Call PCP immediately if patient develops dyspnea, chest pain/tightness or edema. House Bowel Program: Yes Additional Bowel Program Orders: If no BM after 2 days, nurse may give M.O.M. 30ml PO PRN and/or ducolax Supp 1 [place] and/or CHUCKY 250mg P.O., and/or senna 1-2 tabs PO. On day 3 nurse may give repeat above order until residents constipation is resolved. Annual Influenza Vaccine (between Apr 20 and November 17): Yes Two-step PPD per [facility] [phone] or approved exception documents: Yes Medication Orders: PLEASE REFER TO THE DISCHARGE MEDICATION LIST. - Medications New Prescriptions: methylPREDNISolone [Medrol Dose Pack] 1 each PO .PACKAGEINSTRUCTIONS 6 Days #1 each - Diet Type: Geriatric Texture: Regular Liquids: Thin May have monthly special meal: Yes - Therapies | Activity Rehabilitation Potential: Maintain present ADL Functional Activity: Activity as Tolerated Follow Up: See primary care provider in the next 1 to 3 weeks for hospital follow-up visit."
--- NOTE | 2022-09-26 12:16 | DISCHARGE SUMMARY ---
Discharge Summary Admit Date: 09/22/22 Discharge Date: 09/26/22 Discharging Provider: Dr Bria Price Primary Care Provider: Jayden Nixon Condition at Discharge: Fair Discharge Disposition: DC/Xfer - HPI History of Present Illness: 87-year-old female with PMH Dementia, A fib, Mitral valve regurg, CKD , hyperlipidemia is brought to the emergency department for evaluation of fever and rash. Her daughter brings her in from the care facility. Patient is demented and lives at [facility]. Much of the history is obtained from daughter as well as a review of the chart, as the patient was seen in the ER yesterday. Reportedly the patient had a recent urinary tract infection and had been started on Augmentin on Sep 11. However this was changed to Keflex on 13 September. The patient began to develop what appears to be a petechial rash on her legs yesterday morning and was seen in the ER here. At that time provider felt the rash was most likely a drug reaction. She was advised to stop the Keflex and was started on Cetirizine and Pepcid. Over the last 24 hours the patient has had progression of her rash to include all of her torso arms and face. She is also developed a fever. Past medical history is most significant for atrial fib, mitral valve regurg, chronic kidney disease as well as Alzheimer's. She is on digoxin, atorvastatin and Eliquis. On presentation, patient was febrile with Temp of 39.6., tachycardic. In ER, patient also became hypotensive with SBP in 80`s. Labs showed WBC 14, Machine Specialist 1.5, Lactic acid 2.3. As per ER physician, 30 ml/kg fluid bolus has been ordered along with empiric IV zosyn and vanco after blood cx were drawn. Patient is being admitted due to possible severe sepsis, new rash, MARIA E, and lactic acidosis. Per the patient`s daughter, patient is DNR/DNI. - HOSPITAL COURSE Hospital Course: 1. Drug rash. She was treated with broad-spectrum antibiotics because she had fever, leukocytosis, tachycardia. Her blood pressure was 114/51 on admission, 2 hours later BP dropped to 87/43. However urinalysis was noncontributory. Chest x-ray had no pneumonia. Abdominal exam was negative for peritonitis. If she had sepsis we were not finding the source. She had good response with IV fluids and antibiotics. Then we stopped the antibiotics, waiting to see if she has recurrence of fever, and she did not. We think the rash may have been the cause of her fever and abnormal white cell count. 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 This could take days to resolve. She was discharged to [facility] and wait for the rash to resolve. Her iv Solu-Medrol was transitioned to p.o. Medrol Dosepak for tapering, and continue Pepcid. We now put Keflex and Amoxacillin on her Allergy list. 2. Dementia without behavioral disturbance. She was impulsive but she is c ooperative and follows cues. We kept her on Zoloft and Seroquel. 3. Atrial fibrillation. Rate was controlled. Eliquis and digoxin continued. 4. Acute kidney injury. Creatinine 1.5 on admission. Baseline is 0.8. After iv fluids, at discharge, creat was 1.0. - ALLERGIES Allergies/Adverse Reactions: Allergies Allergy/AdvReac Type Severity Reaction Status Date / Time amoxicillin [From Augmentin] Allergy Rash Verified 09/26/22 11:33 cephalexin [From Keflex] Allergy Rash Verified 09/26/22 11:32 clavulanic acid Allergy Rash Verified 09/26/22 11:33 [From Augmentin] Sulfa (Sulfonamide Allergy Nausea Verified 09/22/22 17:39 Antibiotics) - MEDICATIONS Home Medications: Ambulatory Orders Medication Instructions Recorded Confirmed Apixaban [Eliquis] 2.5 mg PO BIDWM 04/30/21 09/23/22 Digoxin [Lanoxin] 62.5 mcg PO TUFR 04/30/21 09/23/22 QUEtiapine [SEROquel] 12.5 mg PO QPM 04/30/21 09/23/22 Sertraline [Zoloft] 25 mg PO DAILY 07/20/21 09/23/22 Atorvastatin [Lipitor] 20 mg PO QPM #30 tablet 07/21/21 09/23/22 Cetirizine [ZyrTEC] 10 mg PO DAILY 09/23/22 09/23/22 Cholecalciferol [Vitamin D3] 25 mcg PO DAILY 09/23/22 09/23/22 Digoxin [Lanoxin] 125 mcg PO SUMOWETHSA 09/23/22 09/23/22 Famotidine 10 mg PO BID 09/23/22 09/23/22 methylPREDNISolone [Medrol Dose 1 each PO .PACKAGEINSTRUCTIONS 6 09/26/22 Pack] Days #1 each - PHYSICAL EXAM AT DISCHARGE General Appearance: positive: No acute distress, Alert Eyes Bilateral: positive: Normal inspection, No lid inflammation ENT: positive: ENT inspection nml, No signs of dehydration Neck: positive: Nml inspection, No JVD Respiratory: positive: No respiratory distress, Breath sounds nml Cardiovascular: positive: Regular rate & rhythm, No murmur Abdomen: positive: Non-tender, No distention Skin: positive: Warm, Dry, Other (Red rash of body and extremities) Extremities: positive: Non-tender, No pedal edema Neurologic/Psychiatric: positive: Motor nml, Disoriented to place, Disoriented to time - LABS Result Diagrams: 09/26/22 05:19 09/26/22 05:19 - FOLLOW UP Follow Up: See PCP for a hospital follow-up visit in 1-2 weeks. - TIME SPENT Time Spent in Discharge (Minutes): 30
[2022-09-27] MEDS ORDERED: methylPREDNISolone 4 MG TABLET PO ONE (08:00)
[2022-09-28] MEDS ORDERED: methylPREDNISolone 4 MG TABLET PO ONE (08:00)
[2022-09-29] MEDS ORDERED: methylPREDNISolone 4 MG TABLET PO ONE (08:00)
[2022-09-30] MEDS ORDERED: methylPREDNISolone 4 MG TABLET PO ONE (08:00)
[2022-10-01] MEDS ORDERED: methylPREDNISolone 4 MG TABLET PO ONE (08:00)
== END 2022-09-26 13:30 | DRG 872 ==
LOC: EDUNIT# → ED 17:28 → MS2 19:38
PROVIDERS: ADMIT Internal Medicine; ATTEND Internal Medicine
DX: A41.9 Sepsis, unspecified organism (principal); M31.0 Hypersensitivity angiitis; E87.20 Acidosis, unspecified; R23.3 Spontaneous ecchymoses; Z20.822 Contact with and (suspected) exposure to COVID-19; N17.9 Acute kidney failure, unspecified; I48.91 Unspecified atrial fibrillation; F03.90 Unspecified dementia, unspecified severity, without behavioral disturbance, psychotic disturbance, mood disturbance, and anxiety; J90 Pleural effusion, not elsewhere classified; J98.11 Atelectasis; I48.20 Chronic atrial fibrillation, unspecified; R65.20 Severe sepsis without septic shock; D72.12 Drug rash with eosinophilia and systemic symptoms syndrome; T36.1X5A Adverse effect of cephalosporins and other beta-lactam antibiotics, initial encounter; T36.0X5A Adverse effect of penicillins, initial encounter; G30.9 Alzheimer's disease, unspecified; F02.80 Dementia in other diseases classified elsewhere, unspecified severity, without behavioral disturbance, psychotic disturbance, mood disturbance, and anxiety; Z79.01 Long term (current) use of anticoagulants; R00.0 Tachycardia, unspecified; Z66 Do not resuscitate; N18.9 Chronic kidney disease, unspecified; E78.5 Hyperlipidemia, unspecified; I34.0 Nonrheumatic mitral (valve) insufficiency; R53.1 Weakness; I95.9 Hypotension, unspecified; Z87.440 Personal history of urinary (tract) infections
CPT/HCPCS: 36415; 51701; 71045; 80048; 80053; 80162; 81001; 83605; 84145; 85025; 85651; 86140; 87040; 87633; 99284; 99285; A9270; J3370; J7509; 87086

== ENCOUNTER 2022-10-06 22:21 | Outpatient (CLI) | payer MEDICARE, OTHER | END 2022-10-06 22:22 | disposition critical access hospital (66) | LOC: EMS 22:21 | DX: R53.1 Weakness (principal); R11.0 Nausea; W01.0XXA Fall on same level from slipping, tripping and stumbling without subsequent striking against object, initial encounter; Y92.098 Other place in other non-institutional residence as the place of occurrence of the external cause; Z79.01 Long term (current) use of anticoagulants | CPT/HCPCS: A0425; A0429 ==

== ENCOUNTER 2022-10-06 22:40 | Emergency (ER) | payer MEDICARE, OTHER ==
--- NOTE | 2022-10-06 22:26 | ED Physician Documentation ---
PD HPI Fall - Stated complaint Stated Complaint: GLF, HIT HEAD - History obtained from History obtained from: Patient (due to dementia, uncertain reliability regarding HPI/ROS), EMS, Caregiver - History of Present Illness Mechanism of injury: Tripped - Additional information Additional information: BIBA from [email or web address]. HPI predominantly from EMS and documentation provided by [email or web address]. Patient had unwitnessed fall in her room near the doorway, found on ground. No obvious injury. Patient tells me she was walking towards the door and thinks she tripped and fell. She denies any pain , denies head injury, denies KEYS. Patient's medication list includes eliquis for atrial fibrillation. Patient was discharged a week ago from [facility] after brief inpatient stay for fever and hypotension, although discharge summary indicates source of these symptoms was not determined. PD PAST MEDICAL HISTORY - Past Medical History Past Medical History: Yes Cardiovascular: High cholesterol, Atrial fibrillation Neuro: Dementia - Present Medications Home Medications: Ambulatory Orders Medication Instructions Recorded Confirmed Apixaban [Eliquis] 2.5 mg PO BIDWM 04/30/21 10/06/22 Digoxin [Lanoxin] 62.5 mcg PO TUFR 04/30/21 10/06/22 QUEtiapine [SEROquel] 12.5 mg PO QPM 04/30/21 10/06/22 Sertraline [Zoloft] 25 mg PO DAILY 07/20/21 10/06/22 Atorvastatin [Lipitor] 20 mg PO QPM #30 tablet 07/21/21 10/06/22 Cetirizine [ZyrTEC] 10 mg PO DAILY 09/23/22 10/06/22 Cholecalciferol [Vitamin D3] 25 mcg PO DAILY 09/23/22 10/06/22 Digoxin [Lanoxin] 125 mcg PO SUMOWETHSA 09/23/22 10/06/22 Ketoconazole [Nizoral A-D] 125 ml TP 10/06/22 - Allergies Allergies/Adverse Reactions: Allergies Allergy/AdvReac Type Severity Reaction Status Date / Time amoxicillin [From Augmentin] Allergy Rash Verified 09/26/22 11:33 cephalexin [From Keflex] Allergy Rash Verified 09/26/22 11:32 clavulanic acid Allergy Rash Verified 09/26/22 11:33 [From Augmentin] Sulfa (Sulfonamide Allergy Nausea Verified 09/22/22 17:39 Antibiotics) PD ED PE NORMAL - Vitals Vital signs reviewed: Yes - General General: No acute distress, Well developed/nourished, Other (awake, alert, oriented x 2 ) - HEENT HEENT: Atraumatic, PERRL, EOMI, Moist mucous membranes - Neck Neck: Supple, no meningeal sign, No bony TTP - Respiratory Respiratory: No respiratory distress, Clear bilaterally - Abdomen Abdomen: Soft, Non tender - Derm Derm: No rash - Extremities Extremities: No deformity, No tenderness to palpate, Normal ROM s pain, No edema - 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, No motor deficit, No sensory deficit, Normal speech Eye Opening: Spontaneous Motor: Obeys Commands Verbal: Confused GCS Score: 14 PD ED PE EXPANDED - Cardiac Cardiac: Irregularly irregular Results - Vitals Vitals: Vital Signs - 24 hr 10/06/22 10/06/22 10/07/22 22:55 23:26 00:00 Temperature 37.4 C Heart Rate 97 99 95 Respiratory 15 21 21 Rate Blood Pressure 106/77 109/64 97/56 L O2 Saturation 92 93 91 L 10/07/22 10/07/22 00:30 01:23 Temperature 37.3 C Heart Rate 97 97 Respiratory 26 H 20 Rate Blood Pressure 98/60 109/64 O2 Saturation 91 L 92 Oxygen O2 Source Room air - EKG (time done) No standard instances Rate: Rate (enter#) (95) Rhythm: Atrial fibrillation [place]: LAD, Anterior hemiblock QRS: Normal Ischemia: Normal ST segments PD Medical Decision Making - ED course Complexity details: reviewed old records (discharge summary from recent inpatient [facility] stay reviewed), reviewed results, re-evaluated patient, considered differential, d/w patient ED course: unwitnessed fall at [facility], presents in NAD and without c/o . No concerning findings on exam nor evidence of injury. Given potential for head injury and that she is on eliquis, a CTH is performed and there are no acute/concerning findings on this study (specifically, no evidence of ICH or skull fracture). On reevaluation, she is resting quietly, awakens easily to voice and remains in NAD. She is discharged back to [facility] Departure - Departure Disposition: 01 Home, Self Care Clinical Impression: Fall Qualifiers: Encounter type: initial encounter Qualified Code(s): W19.XXXA - Unspecified fall, initial encounter Condition: Good Comments: Because you Had a fall tonight and considering that you are on a strong blood thinner (Eliquis) a CAT scan of your head was performed; there were no concerning findings on this study. At this time is safe and appropriate to send you home. Please return if you Discharge Date/Time: 10/07/22 01:24
--- NOTE | 2022-10-07 00:31 | CT Report ---
PROCEDURE: HEAD WO INDICATIONS: unwitnessed fall, dementia, on eliquis TECHNIQUE: Noncontrast 4.5 mm thick angled axial sections acquired from the foramen magnum to the vertex. For r adiation dose reduction, the following was used: automated exposure control, adjustment of mA and/or kV according to patient size. COMPARISON: None. FINDINGS: Image quality: Excellent. CSF spaces: Basal cisterns are patent. No extra-axial fluid collections. Ventricles are normal in size and shape. Brain: No midline shift. No intracranial masses or hemorrhage. Meadows-white matter interface is norm al. Moderate cerebral cortical atrophy and hypodensity consistent with Skull and face: Calvarium and visualized facial bones are intact, without suspicious lesions. Sinuses: Visualized sinuses and mastoids are clear. IMPRESSION: 1. No CT evidence of acute intracranial trauma. 2. Age-appropriate changes. 3. No visible soft tissue injuries or underlying fractures. Reviewed by: Chandrika Toribio MD on 10/07/2022 12:30 AM PST Approved by: Chandrika Toribio MD on 10/07/2022 12:30 AM PST Station ID: [id number]
[2022-10-07 01:24] VITALS: BP 109/64
== END 2022-10-07 01:24 | disposition home or self-care (01) ==
LOC: EDUNIT# → ED 22:40
DX: Z04.3 Encounter for examination and observation following other accident (principal); Z79.01 Long term (current) use of anticoagulants
CPT/HCPCS: 36415; 93005; 99283; 99284

== ENCOUNTER 2022-10-07 16:55 | Outpatient (CLI) | payer MEDICARE, OTHER | END 2022-10-07 16:56 | disposition left against medical advice (07) | LOC: EMS 16:55 | DX: S09.90XA Unspecified injury of head, initial encounter (principal); W01.190A Fall on same level from slipping, tripping and stumbling with subsequent striking against furniture, initial encounter; Y92.099 Unspecified place in other non-institutional residence as the place of occurrence of the external cause; Z79.01 Long term (current) use of anticoagulants ==

== ENCOUNTER 2023-03-28 15:56 | Outpatient (CLI) | payer MEDICARE, OTHER | END 2023-03-28 23:59 | disposition EMS.NT | LOC: EMS 15:56 | DX: R53.1 Weakness (principal) ==